=== PATIENT | female | born 1990 | race Caucasian/White ===

== ENCOUNTER 2022-04-04 10:24 | Outpatient (CLI) | payer BC, SELFPAY ==
[2022-04-04 14:48] LABS: Creatinine Urine 75.6 mg/dL
[2022-04-04 14:52] LABS: Microalbumin Creatinine Ratio 10 mg/g (0-30); Microalbumin Urine 1 mg/dL
[2022-04-04 21:36] LABS: Chloride* 105 mmol/L (96-114); Potassium* 4.3 mmol/L (3.6-5.1); Sodium* 140 mmol/L (135-149)
[2022-04-04 21:39] LABS: Alanine Aminotransferase* 20 U/L (4-35); Alkaline Phosphatase* 76 U/L (40-150); Aspartate Amino Transferase* 24 U/L (12-35); Bilirubin Total* 1.7 mg/dL (0.1-1.5); Blood Urea Nitrogen* 10 mg/dL (5-24); Carbon Dioxide* 22 mmol/L (20-32); Creatinine* 0.7 mg/dL (0.5-1.5); Estimated Glomerular Filt Rate 118 ml/min; Glucose* 87 mg/dL (60-115); Total Protein* 7.6 g/dL (6.0-8.3)
[2022-04-04 21:40] LABS: Calcium* 9.7 mg/dL (8.4-10.6)
[2022-04-04 22:09] LABS: Thyroid Stimulating Hormone* 0.963 uIU/mL (0.270-4.20)
[2022-04-04 22:12] LABS: Ferritin* 10.6 ng/mL (6.24-137.0)
[2022-04-04 23:51] LABS: Vitamin B12* 529 pg/mL (243-894)
== END 2022-04-04 10:25 | disposition home or self-care (01) ==
PROVIDERS: PCP Family Medicine; Visit Provider Family Medicine
DX: Z01.419 Encounter for gynecological examination (general) (routine) without abnormal findings (principal); N93.9 Abnormal uterine and vaginal bleeding, unspecified; R03.0 Elevated blood-pressure reading, without diagnosis of hypertension
CPT/HCPCS: 80053; 82043; 82570; 82607; 82728; 84443

== ENCOUNTER 2022-04-09 13:44 | Outpatient (CLI) | payer BC, SELFPAY ==
--- NOTE | 2022-04-09 14:00 | CRLHL7_ITS ---
For Patients: As a result of the Century Cures Act, medical imaging exams and procedure reports are released immediately into your electronic medical record. You may view this report before your referring provider. If you have questions, please contact your health care provider. INDICATION: ABNORMAL UTERINE BLEEDING COMPARISON: none TECHNIQUE: 2D qureshi scale and color Doppler images were acquired of the pelvis using a transabdominal and transvaginal approach. FINDINGS: Sonographic images demonstrate a normal size and smooth outer contour of the uterus. Uterus measures 9.4 cm in length by 4.3 cm in AP diameter by 5.7 cm in transverse dimension. The myometrium has a heterogeneous echotexture. Circumscribed heterogeneously hypoechoic submucosal fibroid or endometrial polyp within the uterine fundus measuring 1.5 x 1.2 x 1.6 cm. The endometrial lining appears heterogeneous and thickened and measures 18 mm in composite thickness. The right ovary measures 6.4 x 4.5 x 6.0 cm in size and the left ovary measures 3.6 x 1.9 x 2.3 cm. A complex right ovarian cyst is present measuring 6.0 x 4.0 x 5.8 cm. Within this cyst there are hypoechoic internal echoes along with thin reticular septations. The ovaries demonstrate normal arterial and venous blood flow on color Doppler analysis. There are no suspicious fluid collections within the cul-de-sac. IMPRESSION: Complex right ovarian cyst measuring 6.0 cm, likely hemorrhagic cyst. Follow-up in 4-6 weeks recommended. No torsion. Thickened and heterogeneous endometrium measuring 1.8 cm with possible endometrial polyp or submucosal fibroid measuring 1.6 cm. Dictated by Lex Eugene MD @ 04/09/2022 2:31:09 PM (Electronically Signed)
== END 2022-04-09 13:45 | disposition home or self-care (01) ==
PROVIDERS: PCP Family Medicine; Visit Provider Family Medicine
DX: N93.9 Abnormal uterine and vaginal bleeding, unspecified (principal); N83.201 Unspecified ovarian cyst, right side; R93.89 Abnormal findings on diagnostic imaging of other specified body structures
CPT/HCPCS: 76830; 76856; 93976

== ENCOUNTER 2022-05-23 09:46 | Outpatient (CLI) | payer BC, SELFPAY | END 2022-05-23 09:47 | disposition home or self-care (01) | LOC: US 09:48 | PROVIDERS: PCP Family Medicine; Visit Provider Obstetrics & Gynecology | DX: N83.201 Unspecified ovarian cyst, right side (principal); N84.0 Polyp of corpus uteri | CPT/HCPCS: 76830; 76856 ==

== ENCOUNTER 2022-06-04 09:39 | Outpatient (CLI) | payer BC, SELFPAY ==
[2022-06-04 22:45] LABS: Chloride* 106 mmol/L (96-114); Sodium* 140 mmol/L (135-149)
[2022-06-04 22:46] LABS: Potassium* 4.3 mmol/L (3.6-5.1)
[2022-06-04 22:48] LABS: Carbon Dioxide* 22 mmol/L (20-32); Creatinine* 0.7 mg/dL (0.5-1.5); Estimated Glomerular Filt Rate 117 ml/min
[2022-06-04 22:49] LABS: Blood Urea Nitrogen* 11 mg/dL (5-24); Calcium* 9.3 mg/dL (8.4-10.6)
[2022-06-04 23:38] LABS: Glucose* 107 mg/dL (60-115)
[2022-06-05 00:15] LABS: Creatinine Urine 74.4 mg/dL
[2022-06-05 00:19] LABS: Microalbumin Creatinine Ratio 10 mg/g (0-30); Microalbumin Urine 1 mg/dL
== END 2022-06-04 09:40 | disposition home or self-care (01) ==
PROVIDERS: PCP Family Medicine; Visit Provider Family Medicine
DX: Z01.818 Encounter for other preprocedural examination (principal); I10 Essential (primary) hypertension; E66.9 Obesity, unspecified
CPT/HCPCS: 80048; 82043; 82570

== ENCOUNTER 2022-06-07 11:18 | Day surgery (SDC) | payer BC, SELFPAY ==
[2022-06-07] MEDS: LACTATED RINGERS 1000 ML 1,000 ML 100 ML IV (11:30)
[2022-06-07 11:42] VITALS: BMI 39.1
[2022-06-07 11:52] VITALS: BP 131/88; PULSE 85; RESP 18; TEMP 36.2; O2SAT 100
[2022-06-07 11:56] LABS: Hemoglobin* 12.7 gm/dL (12.0-16.0)
[2022-06-07 11:56] LABS: Ur HCG Qualitative* Negative (Negative)
[2022-06-07] MEDS: ETHYL CHLORIDE 1 APPLICATION 1 APPLIC TOPICAL (12:23)
[2022-06-07] MEDS: SODIUM CHLORIDE 0.9 % (FLUSH) 10 ML SYRINGE IVF (12:23)
[2022-06-07] MEDS: BUPIVACAINE 0.5% 30 ML INJECTION (12:54)
[2022-06-07 13:30] VITALS: BP 118/82; PULSE 68; RESP 14; TEMP 36.2; O2SAT 97
--- NOTE | 2022-06-07 13:34 | W.ANESCHARGE ---
Anesthesia Charges Start Date/Time Anesthesia Start Date: 06/07/22 Anesthesia Start Time: 12:33 Stop Date/Time Anesthesia Stop Date: 06/07/22 Anesthesia Stop Time: 13:33 Summary Emergency: No
--- NOTE | 2022-06-07 13:40 | W.PM.GYNPROC ---
Procedure Note Date Seen: 06/07/22 Procedure Details: Preop diagnosis: Abnormal uterine bleeding, suspected endometrial polyps Postop diagnosis: Abnormal uterine bleeding, suspected endometrial polyp vs fibroid Name of procedure: Hysteroscopy, dilation and curettage, placement of Mirena IUD. Surgeon: Katelyn Goins Pile Driver Operator Helper: None Complications: None EBL: 10mL Drains: None Findings: Bimanual exam: Antevereted uterus of about 9cm, regular contour, no adnexal masses. Intrauterine cavity: Bilateral cornual openings seen, Posterior uterine wall pedunculated lesion, irregular in shape, looks calcified? polypoid vs fibroid. Patient was taken to the OR were MAC anesthesia was administered without difficulty. She was placed in the dorsal lithotomy position with Yoni type stirrups. An exam under anesthesia as described above. Patient was then prepared and draped in the normal sterile fashion. A bivalved speculum was inserted in the posterior aspect of the vagina. 0.5% Marcaine was injected at 2 and 11 o'clock a total of about 5mL utilized. A single-tooth tenaculum was used to grasp the anterior lip of the cervix. The uterus was carefully sounded to 8 cm. The cervical os was sequentially dilated to accommodate the 5 mm TrueClear hysteroscope using Hegar dilators. A 5 mm 30 degree TrueClear hysteroscope was introduced under direct visualization, and the uterus was distended with normal saline. Findings as above. Soft tissue incisor blade from TrueClear hysteroscope system was introduced under direct visualization and endometrial curettings performed, this was unsuccesful in complete removal of previously described lesion. Tried a large sharp curette but this was also unsuccesful to remove lesion. Decision was made to change to the larger incisor blade from TrueClear hysteroscopy device. Cervix was further dilated to 8mm. The 7-8mm TrueClear hysteroscope was inserted under direct visualization followed by the incisor blade, previously described lesion was entirely removed. Hysteroscope removed under direct visualization. Mirena IUD was placed without difficulty, strings were cut and left about 3 -4 cm long. Tenaculum was removed from the cervix and good hemostasis was noted at puncture sites. Patient tolerated the procedure well. Instrument and sponge counts were correct x2. The patient was awakened from MAC anesthesia and taken to the recovery room in a stable condition. The patient will go home after recovering from anesthesia and meeting all the criteria for discharge. She was given instruction regarding follow-up visit in 2 weeks at [facility] and instructions for pain medication. IVFs: 400mL Fluid deficit: 700mL
[2022-06-07 13:44] VITALS: BP 115/80; PULSE 65; RESP 14; TEMP 36.3; O2SAT 97
[2022-06-07 14:01] VITALS: BP 116/79; PULSE 65; RESP 16; O2SAT 97
[2022-06-07 14:15] VITALS: BP 125/78; PULSE 78; RESP 18; TEMP 36.3; O2SAT 99
[2022-06-07 14:30] VITALS: BP 123/97; PULSE 75; RESP 18; O2SAT 99
--- NOTE | 2022-06-07 14:54 | W.ANESCHARGE ---
Anesthesia Charges Start Date/Time Anesthesia Start Date: 06/07/22 Anesthesia Start Time: 12:33 Stop Date/Time Anesthesia Stop Date: 06/07/22 Anesthesia Stop Time: 13:33 Summary Emergency: No
== END 2022-06-07 14:50 | disposition home or self-care (01) ==
PROVIDERS: PCP Family Medicine; Visit Provider Obstetrics & Gynecology
PROC: 0UDB8ZZ Extraction of Endometrium, Via Natural or Artificial Opening Endoscopic (ICD-10-PCS; CPT 58558; principal; 2022-06-07 12:30)
DX: N93.8 Other specified abnormal uterine and vaginal bleeding (principal); Z30.430 Encounter for insertion of intrauterine contraceptive device; D25.0 Submucous leiomyoma of uterus
CPT/HCPCS: 58558; 58300; 36415; 81025; 85018; 88305; 952; J1100; J1885; J2250; J2405; J2704; J3010; J3490; J7120; J7298

== ENCOUNTER 2023-04-16 14:15 | Outpatient (CLI) | payer BC, SELFPAY ==
[2023-04-16 21:41] LABS: Chlamydia DNA Amplified* NOT DETECTED (No Detected); GC DNA Amplified* NOT DETECTED (No Detected)
== END 2023-04-16 14:16 | disposition home or self-care (01) ==
PROVIDERS: PCP Family Medicine; Visit Provider Registered Nurse
DX: Z34.91 Encounter for supervision of normal pregnancy, unspecified, first trimester (principal); Z3A.01 Less than 8 weeks gestation of pregnancy
CPT/HCPCS: 82565; 82570; 84156; 84450; 84460; 84520; 86592; 86703; 86704; 86706; 86762; 86787; 86803; 86850; 86900; 86901; 87086; 87340; 87491; 87591

== ENCOUNTER 2023-04-16 15:51 | Emergency (ER) | payer BC, SELFPAY ==
[2023-04-16 16:11] VITALS: BP 138/89; PULSE 77; RESP 16; TEMP 36.6; O2SAT 99; BMI 39.2
--- NOTE | 2023-04-16 16:24 | CRLHL7_ITS ---
For Patients: As a result of the Century Cures Act, medical imaging exams and procedure reports are released immediately into your electronic medical record. You may view this report before your referring provider. If you have questions, please contact your health care provider. INDICATION: Bilateral leg swelling. TECHNIQUE: Ultrasound venous duplex bilateral lower extremity. Compression venous exam was performed using qureshi-scale, color Doppler, and spectral Doppler analysis. Permanently recorded images are archived. COMPARISON: None. FINDINGS: Deep veins: Sonographic imaging demonstrates the bilateral common femoral, deep femoral, superficial femoral, popliteal, posterior tibial, and peroneal veins to be fully compressible with normal color Doppler blood flow. Superficial veins: Greater saphenous veins are fully compressible. No popliteal cyst. IMPRESSION: No deep venous thrombosis in the evaluated veins of the bilateral lower extremities. Dictated by Rodger Lawrence MD @ 04/16/2023 6:50:25 PM (Electronically Signed)
--- NOTE | 2023-04-16 17:18 | ED.GENADULT ---
HPI - General Adult General Chief complaint: Lower Extremity Swelling Stated complaint: possible blood clot, R leg Time Seen by Provider: 04/16/23 16:55 Source: patient Mode of arrival: ambulatory Limitations: no limitations History of Present Illness HPI narrative: 32-year-old female coming in today after being seen in the clinic for her 1st OB appointment with concerns about leg swelling. Patient is G 4 P 3 at 7 weeks gestation. so far has been uncomplicated. She has had superficial thrombophlebitis with previous pregnancies no history of DVT. She denies any systemic symptoms. Related Data Home Medications Medication Instructions Recorded Confirmed docosahexaenoic acid 200 mg mg PO 04/16/23 04/16/23 capsule ( DHA) Allergies Allergy/AdvReac Type Severity Reaction Status Date / Time No Known Drug Allergies Allergy Verified 04/16/23 13:55 Review of Systems Status of ROS: Reports: 10 or more systems reviewed and unremarkable except as noted in History and below PFSH PFS Medical History Macrosomia ?P08.0 - Exceptionally large baby (ICD-10) Anxiety ?F41.9 - Anxiety disorder, unspecified (ICD-10) Endometritis ?N71.9 - Inflammatory disease of uterus, unspecified (ICD-10) Superficial thrombophlebitis ?I80.9 - Phlebitis and thrombophlebitis of unspecified site (ICD-10) Ovarian cyst ?N83.209 - Unspecified ovarian cyst, unspecified side (ICD-10) Abnormal uterine bleeding (AUB) ?N93.9 - Abnormal uterine and vaginal bleeding, unspecified (ICD-10) History of gestational hypertension ?Z87.59 - Personal history of other complications of , childbirth and the puerperium (ICD-10) Vaginal delivery ?O80 - Encounter for full-term uncomplicated delivery (ICD-10) Severe pre-eclampsia affecting puerperium ?O14.15 - Severe pre-eclampsia, complicating the puerperium (ICD-10) Surgical History Status post hysteroscopic myomectomy ?Z98.890 - Other specified postprocedural states (ICD-10) Social History (Reviewed 04/16/23 @ 17:33 by KENZIE Mendoza 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 Do you want help finding or keeping work or a job: I do not need or want help Physical activity type: none Smoking Status: Never smoker Do you use any of these nicotine containing products: None How often do you have a drink containing alcohol: never How often do you have six or more drinks on one occasion: Never AUDIT-C Alcohol total score: 0 Non-prescribed substance use: denies use Caffeine: Yes (occasionally) Little interest or pleasure in doing things: not at all Feeling down, depressed, or hopeless: not at all Are you currently sexually active: Yes Are you using contraception or practicing any form of control: Yes service: No Exam Narrative: Exam Narrative: Obese, well-developed patient in no acute distress. Alert and oriented. Answers questions appropriately. Mood and affect are appropriate. Thoughts are goal oriented and rational. No tangential or magical thinking noted. Patient speaks in full sentences without needing to catch her breath. HEENT: Normocephalic atraumatic. Pupils are equally round reactive to light. Extraocular muscles are intact. Conjunctivae are moist without any icterus noted. Moist mucous membranes. Cardiovascular: Heart is regular rate and rhythm. Lungs: Clear to auscultation bilaterally. Extremities: Bilateral lower extremities are without edema. Normal DP and PT pulses. She has large varicose veins on the right. Skin: Well perfused without any obvious rashes. Const: Vital Signs, click to edit/add: Vital Signs - 24 hr 04/16/23 16:11 Temperature 97.9 F Pulse Rate [Right Pulse Oximeter] 77 Respiratory Rate 16 Blood Pressure [Ri ght Upper Arm] 138/89 Pulse Oximetry 99 Oxygen Delivery Me thod Room Air Course Course ED Course: Ultrasound of bilateral lower extremities was negative. Vital Signs Vital signs: Initial Vital Signs Temperature 97.9 F 04/16/23 16:11 Temperature Source Temporal Artery Scan 04/16/23 16:11 Pulse Rate 77 04/16/23 16:11 Pulse Rhythm Regular 04/16/23 16:11 Respiratory Rate 16 04/16/23 16:11 Blood Pressure 138/89 04/16/23 16:11 Blood Pressure Mean 105 04/16/23 16:11 Blood Pressure Position Sitting 04/16/23 16:11 Pulse Oximetry 99 04/16/23 16:11 Oxygen Delivery Method Room Air 04/16/23 16:11 Vital Signs Temperature 97.9 F 04/16/23 16:11 Pulse Rate 77 04/16/23 16:11 Respiratory Rate 16 04/16/23 16:11 Blood Pressure 138/89 04/16/23 16:11 Pulse Oximetry 99 04/16/23 16:11 Oxygen Delivery Method Room Air 04/16/23 16:11 Temperature 97.9 F 04/16/23 16:11 Pulse Rate 77 04/16/23 16:11 Respiratory Rate 16 04/16/23 16:11 Blood Pressure 138/89 04/16/23 16:11 Pulse Oximetry 99 04/16/23 16:11 Oxygen Delivery Method Room Air 04/16/23 16:11 Medical Decision Making MDM Narrative Medical decision making narrative: 32-year-old female with lower extremity swelling in the setting of . We discussed elevating her legs as much as possible, wearing compression stockings regularly. Patient had no other questions. Imaging Data Venous US: Attestation: I have reviewed the pertinent imaging results. Radiologist's impression: Ultrasound venous duplex bilateral lower extremity. Compression venous exam was performed using qureshi-scale, color Doppler, and spectral Doppler analysis. Permanently recorded images are archived. COMPARISON: None. FINDINGS: Deep veins: Sonographic imaging demonstrates the bilateral common femoral, deep femoral, superficial femoral, popliteal, posterior tibial, and peroneal veins to be fully compressible with normal color Doppler blood flow. Superficial veins: Greater saphenous veins are fully compressible. No popliteal cyst. IMPRESSION: No deep venous thrombosis in the evaluated veins of the bilateral lower extremities. Discharge Plan Discharge Clinical Impression: Swelling of lower extremity Patient Disposition: Home, Self-Care Condition: Stable Additional Instructions: Elevate your legs as much as possible. Wear compression stockings as often as possible. Follow-up with OBGYN as scheduled. Prescriptions: No Action DHA 200 mg capsule PO Follow Up/Referrals: Frannie Barriga DO [Primary Care Provider] - Stand Alone Forms: [facility] Info Instructions
== END 2023-04-16 17:35 | disposition home or self-care (01) ==
LOC: ED 17:25
PROVIDERS: Emergency Provider Family Medicine; PCP Family Medicine
DX: R60.9 Edema, unspecified (principal)
CPT/HCPCS: 76817; 82565; 82570; 84156; 84450; 84460; 84520; 86703; 86706; 86803; 86850; 86900; 86901; 87086; 87340; 87491; 87591; 93970; 99283; 99284

== ENCOUNTER 2023-05-09 16:52 | Emergency (ER) | payer BC, SELFPAY ==
[2023-05-09 17:01] VITALS: BP 149/74; PULSE 83; RESP 20; TEMP 36.6; O2SAT 99; BMI 39.2
--- NOTE | 2023-05-09 17:18 | ED.GENADULT ---
HPI - General Adult General Time Seen by Provider: 17:18 Date Seen: 05/09/23 Chief complaint: Vaginal Bleeding Stated complaint: 10 weeks , bleeding Time Seen by Provider: 05/09/23 16:54 History of Present Illness HPI narrative: This is a 32-year-old female who is G4, P3, currently 10 weeks . She presents to the ER today with vaginal bleeding concern for miscarriage. Her past gynecologic history includes 3 previous pregnancies. All live births in life children. Two of her pregnancies were complicated by preeclampsia. One of her pregnancies was complicated by a 1st trimester subchorionic hematoma. She also had a hysteroscopy last year that showed uterine polyps. She had placement of IUD the after that hysteroscopy but had a removed 3 months ago in January due to vaginal bleeding and problems. She had some light vaginal bleeding in late January which she thought was her last normal. . She had an others light. In the week and of February, on February 22 and . She is now 10 weeks . She has had her 1st checkup including pre a ultrasound which confirmed an intrauterine -single varela gestation. She has been doing with while during the 1st trimester. 3 days ago on Saturday she began to have some very light pink vaginal discharge which she noticed only when she wiped after going to the bathroom. No other vaginal bleeding. This afternoon the bleeding became a bit heavier. She is now having some bright red vaginal spotting. No cramping. No abdominal pain. No flank pain. No urinary symptoms. Normal bowel movements. No blood in her stool. No fever or chills. Because of the spotting she is worried about miscarriage. She has called her clinic and they were able to get her in for an appointment an ultrasound next . She does not feel that she can wait that long so she came immediately here to the ER. She wants to find out whether she has having a miscarriage. Related Data Home Medications Medication Instructions Recorded Confirmed docosahexaenoic acid 200 mg mg PO 04/16/23 04/16/23 capsule ( DHA) Allergies Allergy/AdvReac Type Severity Reaction Status Date / Time No Known Drug Allergies Allergy Verified 04/16/23 13:55 [facility] Medical History Macrosomia ?P08.0 - Exceptionally large baby (ICD-10) Anxiety ?F41.9 - Anxiety disorder, unspecified (ICD-10) Endometritis ?N71.9 - Inflammatory disease of uterus, unspecified (ICD-10) Superficial thrombophlebitis ?I80.9 - Phlebitis and thrombophlebitis of unspecified site (ICD-10) Ovarian cyst ?N83.209 - Unspecified ovarian cyst, unspecified side (ICD-10) Abnormal uterine bleeding (AUB) ?N93.9 - Abnormal uterine and vaginal bleeding, unspecified (ICD-10) History of gestational hypertension ?Z87.59 - Personal history of other complications of , childbirth and the puerperium (ICD-10) Vaginal delivery ?O80 - Encounter for full-term uncomplicated delivery (ICD-10) Severe pre-eclampsia affecting puerperium ?O14.15 - Severe pre-eclampsia, complicating the puerperium (ICD-10) Surgical History Status post hysteroscopic myomectomy ?Z98.890 - Other specified postprocedural states (ICD-10) Social History 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 Do you want help finding or keeping work or a job: I do not need or want help Physical activity type: none Smoking Status: Never smoker Do you use any of these nicotine containing products: None How often do you have a drink containing alcohol: never How often do you have six or more drinks on one occasion: Never AUDIT-C Alcohol total score: 0 Non-prescribed substance use: denies use Caffeine: Yes (occasionally) Little interest or pleasure in doing things: not at all Feeling down, depressed, or hopeless: not at all Are you currently sexually active: Yes Are you using contraception or practicing any form of control: Yes service: No Exam Narrative: Exam Narrative: Constitutional: Appears well-developed and well-nourished. Alert. Conversant. Non toxic. HENT: Head: Atraumatic. Nose: Nose normal. Mouth/Throat: Oral mucosa is clear and moist. no trismus. Pharynx normal. Tonsils symmetric. No tonsillar enlargement, erythema, or exudate. Eyes: Conjunctivae normal. EOM normal. Pupils equal, round, and reactive to light. No scleral icterus. Neck: Normal range of motion. Neck supple. No tracheal deviation present. Cardiovascular: Normal rate, regular rhythm. No gallop. No friction rub. No murmur heard. Pulmonary/Chest: Effort normal. No stridor. No respiratory distress. No wheezes. No rales. No rhonchi . No tenderness. Abdominal: Soft. Bowel sounds normal. No distension. No mass. No palpable uterine enlargement. No tenderness. No rebound. No guarding. No CVA tenderness. Musculoskeletal: RUE: Normal range of motion. No tenderness. No deformity LUE: Normal range of motion. No tenderness. No deformity RLE: Normal range of motion. No edema. No tenderness. No deformity LLE: Normal range of motion. No edema. No tenderness. No deformity Neurological: Alert and oriented to person, place, and time. Normal strength. CN II-VII intact. No sensory deficit. GCS eye subscore is 4. GCS verbal subscore is 5. GCS motor subscore is 6. Normal coordination Skin: Skin is warm and dry. No rash noted. No pallor. Normal capillary refill. Psychiatric: Normal mood. Normal affect. Const: Vital Signs, click to edit/add: Vital Signs - 24 hr 05/09/23 17:01 Temperature 97.8 F Pulse Rate [Pulse Oximeter] 83 Respiratory Rate 20 Blood Pressure [Le ft Upper Arm] 149/74 H Pulse Oximetry 99 Oxygen Delivery Me thod Room Air Course Course ED Course: Recheck-back from ultrasound. Preliminary report is concerning showing intrauterine demise. Reevaluation(s) Reevaluation #1: Recheck-discussed with Obstetrics. Reevaluation #2: Recheck-patient is still emotionally upset and tearful but is conversant. Hemodynamically stable. No pain. Light bleeding. She is comfortable with the plan to discharge home for now with expectant management. Precautions for return to the ER reviewed. Vital Signs Vital signs: Initial Vital Signs Temperature 97.8 F 05/09/23 17:01 Temperature Source Temporal Artery Scan 05/09/23 17:01 Pulse Rate 83 05/09/23 17:01 Pulse Rhythm Regular 05/09/23 17:01 Respiratory Rate 20 05/09/23 17:01 Blood Pressure 149/74 H 05/09/23 17:01 Blood Pressure Mean 99 05/09/23 17:01 Blood Pressure Position Supine 05/09/23 17:01 Pulse Oximetry 99 05/09/23 17:01 Oxygen Delivery Method Room Air 05/09/23 17:01 Vital Signs Temperature 97.8 F 05/09/23 17:01 Pulse Rate 83 05/09/23 17:01 Respiratory Rate 20 05/09/23 17:01 Blood Pressure 149/74 H 05/09/23 17:01 Pulse Oximetry 99 05/09/23 17:01 Oxygen Delivery Method Room Air 05/09/23 17:01 Temperature 97.8 F 05/09/23 17:01 Pulse Rate 83 05/09/23 17:01 Respiratory Rate 20 05/09/23 17:01 Blood Pressure 149/74 H 05/09/23 17:01 Pulse Oximetry 99 05/09/23 17:01 Oxygen Delivery Method Room Air 05/09/23 17:01 Medical Decision Making MDM Narrative Medical decision making narrative: This female patient presents for evaluation of 2-3 days of very light vaginal spotting now with light red vaginal bleeding. I considered a broad differential including ectopic , ovarian cyst, UTI, pyelonephritis, subchorionic hemorrhage, uterine bleeding, active miscarriage, constipation, etc. Non gynecologic causes considered included , appendicitis, cholecystitis, volvulus, intraabdominal abscess, among others. In this patient, there are no signs of serious etiologies of abdominal pain. The workup here suggests incomplete miscarriage. Quantitative hCG is 10,675, lower than what would be expected for dates. Pelvic ultrasound confirms an intrauterine gestation, only at 9 weeks size (< we would predict) with absent heart tones. This is concerning for incomplete . Discussed with the patient. She is emotionally in shock. However her bleeding remains light, she is not having any cramping, and she is hemodynamically stable. Hemoglobin is normal. Rh is positive. Discussed with the on-call associate professor of geography, , who agrees with our plan for an initial attempt at conservative management. She would have the patient follow-up in clinic within 1-3 days for re-evaluation and to discuss options. At this point, patient is hemodynamically stable, hemoglobin is reassuring, and bleeding is not predicted to become life threatening. Plan is home, close follow-up with OB, miscarriage precautions, and return to ED for worsening pain, heavy vaginal bleeding (more than 1 pad soaked every hour). Questions were answered to the best my ability. Lab Data Labs: Lab Results 05/09/23 Range/Units 17:44 WBC 6.27 (4.50-11.00) K/uL RBC 4.53 (4.00-5.20) m/uL Hgb 12.4 (12.0-16.0) gm/dL Hct 36.9 (33.0-51.0) % MCV 82 (80-100) fL MCH 27 (26-34) pg MCHC 34 (32-36) gm/dL RDW Coeff of Kulwant 14.6 (11.5-15.5) % Plt Count 211 (140-440) K/uL Neut % (Auto) 68.5 (42.0-72.0) % Lymph % (Auto) 25.5 (20-44) % [place]pton % (Auto) 4.8 (0.0-11.0) % Eos % (Auto) 0.8 (0.0-7.0) % Baso % (Auto) 0.2 (0.0-3.0) % Neut # (Auto) 4.30 (1.7-7.0) K/uL Lymph # (Auto) 1.60 (0.90-2.90) K/uL Upton # (Auto) 0.30 (0.00-0.90) K/UL Eos # (Auto) 0.05 (0.00-0.50) K/uL Baso # (Auto) 0.01 (0.00-0.30) K/uL Abs Immat Gran (auto) 0.01 (0.00-0.30) K/uL Imm/Tot Granulo (auto) 0.2 % HCG, Quant 54218.00 mIU/mL Imaging Data Pelvic US: Attestation: I have reviewed the pertinent imaging results. Radiologist's impression: IMPRESSION: Failed 1st trimester . No cardiac activity. 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 Tell them that you were in the ER tonight and diagnosed with a miscarriage. We discussed with the on-call OB doctor and she would like you to be rechecked within 1-3 days. As we discussed if you have worsening symptoms or any concerns, come back to the ER right away-especially if you have worsening heavy bleeding, lightheadedness, fever or chills, severe abdominal pain. Prescriptions: No Action DHA 200 mg capsule PO Follow Up/Referrals: Frannie Barriga DO [Staff Physician] - Stand Alone Forms: [employer] Info Instructions
--- NOTE | 2023-05-09 17:21 | CRLHL7_ITS ---
For Patients: As a result of the Cures Act, medical imaging exams and procedure reports are released immediately into your electronic medical record. You may view this report before your referring provider. If you have questions, please contact your health care provider. INDICATION: Vaginal bleeding, 10 weeks . TECHNIQUE: Ultrasound OB pelvis transabdominal and transvaginal. Real-time qureshi-scale imaging of the pelvis was performed. COMPARISON: 04/17/2023. FINDINGS: Current estimated gestational age 10 weeks 5 days. Intrauterine gestational sac: Present. Embryo present: Yes. Embryo cardiac activity: None [place] rump Length: 2.34 cm. Sonographic gestational age: 9 weeks 0 days Perigestational hemorrhage: None. Ovaries and adnexae: The right ovary measures 4.6 x 2.2 x 2.3 cm. Hemorrhagic cyst, 2.5 x 1.9 x 2.0 cm. The left ovary measures 4.1 x 2.0 x 2.5 cm. IMPRESSION: Failed 1st trimester . No cardiac activity. Dictated by Karen Lofton MD @ 05/09/2023 6:32:09 PM (Electronically Signed)
[2023-05-09 17:51] LABS: Basophils Absolute Auto 0.01 K/uL (0.00-0.30); Basophils Percent Auto 0.2 % (0.0-3.0); Eosinophils Absolute Auto 0.05 K/uL (0.00-0.50); Eosinophils Percent Auto 0.8 % (0.0-7.0); Hematocrit 36.9 % (33.0-51.0); Hemoglobin* 12.4 gm/dL (12.0-16.0); Immature Granulocytes Abs Auto 0.01 K/uL (0.00-0.30); Immature Granulocytes Pct Auto 0.2 %; Lymphocytes Percent Auto 25.5 % (20-44); Mean Corpuscular HGB Conc 34 gm/dL (32-36); Mean Corpuscular Hemoglobin 27 pg (26-34); Mean Corpuscular Volume 82 fL (80-100); Monocytes Percent Auto 4.8 % (0.0-11.0); Neutrophils Percent Auto 68.5 % (42.0-72.0); Platelet Count* 211 K/uL (140-440); RDW Coefficient of Variation % 14.6 % (11.5-15.5); Red Blood Count 4.53 m/uL (4.00-5.20); White Blood Count* 6.27 K/uL (4.50-11.00)
[2023-05-09 17:54] LABS: Slide Review Reflex No
== END 2023-05-09 19:10 | disposition home or self-care (01) ==
PROVIDERS: Emergency Provider Emergency Medicine; PCP Internal Medicine Nephrology
DX: O03.4 Incomplete spontaneous abortion without complication (principal)
CPT/HCPCS: 36415; 76817; 84702; 85025; 99283; 99284

== ENCOUNTER 2023-10-18 12:45 | Outpatient (CLI) | payer BC, SELFPAY ==
--- NOTE | 2023-10-18 13:00 | US_ITS ---
Patient: ANTHONY DESOUZA Facility:?[facility] RIS Patient ID:?[id number] Site Patient ID:?[id number]. Site :?1989 Study:?US-OB Pelvis OB TA < 14 WEEKS-10/18/2023 1:16:46 PM Ordering Physician:?SHO PADILLA CNP Final Report: INDICATION: First trimester scan, establish dates. TECHNIQUE: Real-time qureshi-scale imaging of the pelvis was performed. FINDINGS: Sonographic imaging demonstrates a single living intrauterine gestation. The embryo demonstrates a regular cardiac rate measuring 169 beats per minute. The embryo`s crown-rump length measurement of 5 cm corresponds to a gestational age of 11 weeks 5 days with a sonographic due date of 05/03/2024 . There is a normal-appearing yolk sac. Small subchorionic hemorrhage measuring 2.7 x 3.2 x 0.7 centimeters IMPRESSION: Early intrauterine at 11 weeks 5 days with RUBEN of 05/03/2024. Small subchorionic hemorrhage. Dictated by Georgina Marley MD @ 10/19/2023 10:45:45 AM Signed by:?Georgina Marley MD @10/19/2023 10:45:45 AM (Electronic Signature)
== END 2023-10-18 12:46 | disposition home or self-care (01) ==
LOC: US 12:46
PROVIDERS: Visit Provider Registered Nurse
DX: Z34.91 Encounter for supervision of normal pregnancy, unspecified, first trimester (principal); O20.9 Hemorrhage in early pregnancy, unspecified; Z3A.11 11 weeks gestation of pregnancy
CPT/HCPCS: 76801; 82565; 82570; 84156; 84450; 84460; 84520; 84550; 86592; 86703; 86704; 86706; 86762; 86787; 86803; 86850; 86900; 86901; 87086; 87340; 87491; 87591

== ENCOUNTER 2023-11-08 06:15 | Outpatient (CLI) | payer BC, SELFPAY ==
--- OUTSIDE RECORDS SUMMARY | 2023-11-11 06:50 | XMS_ITS | Clinical Summary ---
Author Name Unknown Organization [facility] Address [place], [place] [address] Care Team Providers Care Heel Emery Buffer Name Role Phone Katelyn Goins MD Primary Care Prov ider Allergies No known active allergies Medications Medication Sig Dispensed Refills Start Date End Date Status MICROGESTIN FE 08/10 1-20 mg-mcg tablet TAKE ONE TABLET BY MOUTH EVERY DAY 1 Package 0 09/02/2011 Active tobramycin (TOBREX) 0.3 % ophthalmic solutionIndications:C onjunctivitis Place 1-2 Drops into both eyes every 4 hours. 1 Bottle 0 03/14/2014 Active busPIRone 7.5 mg tablet Take 7.5 mg by mouth 2 times daily. 07/06/2020 Active sertraline (ZOLOFT) 100 mg tablet Take 100 mg by mouth once daily. 07/06/2020 Active Active Problems No known active problems Immunizations Name Administration Dates Next Due Hepatitis B (Peds) 09/10/2000,04/09/2000, 000 Meningococcal Vaccine (Menactra) 02/25/2008 Td (Age >=7 Years) 08/08/2004 Family History Relation Name Status Comments Father Alive Mother Alive Social History Tobacco Use Types Packs/Day Years Used Date Smoking Tobacco: Never Smokeless Tobacco: Never Alcohol Use Standard Drinks/Week Comments No 0 (1 standard drink = 0.6 oz pur e alcohol) Sex and Gender Information Value Date Recorded Sex Assigned at Not on file Gender Identity Not on file Sexual Orientation Not on file Obstetrics History Para Term AB IAB SAB Ectopic Multiple Livin g Live Births 0 0 0 0 0 0 0 0 0 0 Last Filed Vital Signs Vital Sign Reading Time Taken Comments Blood Pressure 145/90 07/15/2020 2:30 PM [facility] Pulse 77 07/15/2020 2:30 PM YACHT HAND Temperature 36.4 ??C (97.6 ??F) 07/15/2020 2:30 PM CS T Respiratory Rate 16 07/15/2020 2:30 PM YACHT HAND Oxygen Saturation 100% 07/15/2020 2:30 PM [facility]AC[facility] HAND Inhaled Oxygen Concentration - - Weight 99.8 kg (220 lb) 07/15/2020 2:30 PM YACHT HAND Height 170.2 cm (5' 7) 07/15/2020 2:30 PM YACHT HAND Body Mass Index 34.46 07/15/2020 2:30 PM [facility] Plan of Treatment Health Maintenance Due Date Last Done Comments Tdap 2000 Depression screening for age 12+ 2001 HIV for age 15-65 2004 BMI (ht and wt on same day) for age 18+ 2007 Hepatitis C screening for ag e 18-79 2007 Tetanus booster 08/08/2014 08/08/2004 Pap test for age 21-65 08/28/2022 0, 08/28/2019, 08/30/2010 COVID-19 vaccine series (2022-24 season) 2023 Influenza for age 9-49 03/22/2024 Pneumococcal series for age 6-64 Aged Out No longer eligible b ased on patient's age to complete this topic Procedures Procedure Name Priority Date/Time Associated Diagnosis Comments SMASH PIECER THIN PREP PAP SCREEN IMAGED Routine 08/28/2019 11:08 AM [facility] from Last 3 Months or Most Recently Relevant to Health Maintenance Results * SMASH PIECER THIN PREP PAP SCREEN IMAGED (08/28/2019 11:08 AM [facility]) Case Report Gynecologic Cytology Report ? Case: [id number] ? Authorizing Provider: ??Katelyn Goins ??Collected: ? 08/28/2019 1108 ? M, MD ? Ordering Location: ? [facility] ?Received: ?08/28/2019 1623 ? First Screen: ?Rosemary Ferguson ? Specimen: ?SMASH PIECER ThinPrep Vial Screening, Cervical/Vaginal ? 09/08/2019 10:14 AM [facility]-C ENTRAL LABORATORY INTERPRETATION/ RESULT NEGATIVE FOR INTRAEPITHELIAL LESION OR MALIGNANCY (NIL) (none) 09/08/2019 10:14 AM [facility]-C ENTRAL LABORATORY IMEN ADEQUACY Satisfactory for evaluation Endocervical component present 09/08/2019 10:14 AM [facility] ENTRAL LABORATORY HPV REQUEST HPV and PAP 09/08/2019 10:14 AM [facility] EN[facility]AL LABORAT[facility] Last Pap Date 09/27/2014 09/08/2019 10:14 AM [facility] ENTRAL LABORATORY Last Pap Result NIL 0 10:14 AM [facility]-C ENTRAL LABORATORY Menstrual Status 09/08/2019 10:14 AM [facility]-C ENTRAL LABORATORY Additional Information 09/08/2019 10:14 AM [facility] Comment: Interpreted at [facility] - [address], [place] [address] Automated Review Successful 09/08/2019 10:14 AM [facility] Comment:Specimen processed s uccessfully by automated bank president device, [employer] System, [employer] ANCILLARY TESTING SMASH PIECER HPV Ordered, Please see separate report 09/08/2019 10:14 AM [facility] Note The pap test is a screening technique, not a diagnostic procedure. It is used primarily to screen for squamous cancers and precursor lesions. Published studies have shown that it is subject to both false negative and false positive results. The pap test should not be used as the sole means to diagnose or exclude pre-malignant and malignant lesions. 09/08/2019 10:14 AM [facility] Other (Cervical/Vagina l) 08/28/2019 11:08 AM [facility] 08/28/2019 4:23 PM [facility] Katelyn Goins MD PATHOLOGY/ CYTOLOGY [facility] [address] [place] [address], from Last 3 Months or Most Recently Relevant to Health Maintenance Care Teams Heel Emery Buffer Relationship Specialty Start Date End Date Katelyn Goins MD [address] [place] [address] PCP - General Obstetrics and Gynecology 07/15/20
--- OUTSIDE RECORDS SUMMARY | 2023-11-11 06:50 | XMS_ITS | Clinical Summary ---
Author Name Unknown Organization [place] Address [address] [facility] [place] [address] Care Team Providers Care Cassandra Architect Name Role Phone [facility], [facility] Primary Care Provider [phone] [phone] Allergies No known active allergies Medications Medication Sig Dispensed Refills Start Date End Date Status Vit-Fe Fumarate-FA ( MULTIVITAMIN PLUS IRON) 27-0.8 MG TABS Take 1 tablet by mouth daily 100 tablet 3 09/08/2015 Active Vitamin D, Ergocalciferol, 2000 units CAPS Take 4,000 Units by mouth Active norethindrone (MICRONOR) 0.35 MG per tabletIndications:Rout ine follow-up Take 1 tablet (0.35 mg) by mouth daily 112 tablet 3 01/16/2018 Active Active Problems Problem Noted Date Diagnosed Date Acute endometritis 11/27/2017 Encounter for triage in patient 018 Indication for care in labor or delivery 018 CARDIOVASCULAR SCREENING; LDL GOAL LESS THAN 160 09/27/2014 Resolved Problems Problem Noted Date Diagnosed Date Resolved Date History of gestational hypertension 06/28/2017 12/03/2017 , supervision, high-risk 06/28/2017 12/03/2017 Indication for care in labor and delivery, delivered 05/06/2016 06/28/2017 PIH ( induced hypertension) 05/04/2016 06/28/2017 Indication for care in labor and delivery, antepartum 05/04/2016 06/28/2017 Folliculitis 03/16/2014 06/28/2017 Stye 03/16/2014 06/28/2017 Immunizations Name Administration Dates Next Due Influenza (IIV3) PF 04/04/2016 Influenza Vaccine >6 months,quad, PF 05/03/2017 TDAP Vaccine (Adacel) 09/06/2017,03/20/2016 Family History Medical History Relation Comments Cancer Maternal Grandmother cervical Thyroid Disease Maternal Grandmother Breast Cancer No family hx of Ovarian Cancer No family hx of Relation Status Comments Father Alive Maternal Grandmother Mother Alive Son Alive Social History Tobacco Use Types Packs/Day Years Used Date Smoking Tobacco: Never Smokeless Tobacco: Never Alcohol Use Standard Drinks/Week Comments No 0 (1 standard drink = 0.6 oz pur e alcohol) PHQ-2 Answer Date Recorded PHQ-2 Score 0 07/30/2018 Adolescent Education Answer Date Record ed Getting School Help Needed Not on file 04/12 Sex and Gender Information Value Date Recorded Sex Assigned at Not on file Gender Identity Not on file Sexual Orientation Not on file Last Filed Vital Signs Vital Sign Reading Time Taken Comments Blood Pressure 128/80 02/04/2018 9:27 AM CDT Pulse 126 02/04/2018 9:27 AM CDT Temperature 37.7 ??C (99.9 ??F) 02/04/2018 9:27 AM CD T Respiratory Rate 18 02/04/2018 9:27 AM CDT Oxygen Saturation 97% 02/04/2018 9:27 AM CDT Inhaled Oxygen Concentration - - Weight 95.5 kg (210 lb 9.6 oz) 02/04/2018 9:27 A M CDT Height 170.2 cm (5' 7) 02/04/2018 9:27 AM CDT Body Mass Index 32.98 02/04/2018 9:27 AM CDT Plan of Treatment Not on file Procedures Procedure Name Priority Date/Time Associated Diagnosis Comments PAP IMAGED THIN LAYER SCREEN Routine 05/03/2017 2:46 PM CDT care, subsequent , unspecified trimester HIV ANTIGEN ANTIBODY COMBO Routine 05/03/2017 10:13 AM CDT care, subsequent , unspecified trimester from Last 3 Months or Most Recently Relevant to Health Maintenance Results * Pap imaged thin layer screen reflex to HPV if ASCUS - recommend age 25 - 29 (05/03/2017 2:46 PM CDT) PAP NIL COPATH Copath Report Patient Name: AMY LOVETT MR#: [id number] Specimen #: [id number] Collected: 05/03/2017 Received: 05/06/2017 Reported: 05/07/2017 14:26 Ordering Phy(s): RAMBO DAN For improved result formatting, select 'View Enhanced Report Format' under Linked Documents section. SPECIMEN/STAIN PROCESS: Pap imaged thin layer prep screening (Surepath, FocalPoint with guided screening) ? Pap-Cyto x 1, Pap with reflex to HPV if ASCUS x 1 SOURCE: Cervical, endocervical Pap imaged thin layer prep screening (Surepath, FocalPoint with guided screening) SPECIMEN ADEQUACY: Satisfactory for evaluation. -Transformation zone component absent. CYTOLOGIC INTERPRETATION: Negative for intraepithelial lesion or malignancy Electronically signed out by: RAKAN Angel (ASCP) Processed and screened at [facility], [facility] CLINICAL HISTORY: LMP: 02/16/2017 Previous normal pap Date of Last Pap: 09/27/2014, Papanicolaou Test Limitations: ??Cervical cytology is a screening test with limited sensitivity; regular screening is critical for cancer prevention; Pap tests are primarily effective for the diagnosis/preventi on of squamous cell carcinoma, not adenocarcinomas or other cancers. TESTING LAB LOCATION: [address] ??[phone] COLLECTION SITE: Client: ??[facility] Location: SVFP (R) COPATH Cytologic material (specimen) 05/03/2017 2:46 PM CDT 05/06/2017 10:55 AM CDT Rambo Dan MD LAB - [facility] L SPECIMEN COPATH * HIV Antigen Antibody Combo (05/03/2017 10:13 AM CDT) HIV Antigen Antibody Combo Nonreactive NR^Nonrea ctive 05/03/2017 7:14 PM CDT [facility] Comment:HIV-1 p24 Ag & HIV-1 /HIV-2 Ab Not Detected Blood specimen (specimen) 05/03/2017 10:13 AM CDT 05/03/2017 10:14 AM CDT Rambo Dan MD LAB - BLOOD ORDERABL ES [facility] [address] [place] [address] from Last 3 Months or Most Recently Relevant to Health Maintenance Care Teams Cassandra Architect Relationship Specialty Start Date End Date [facility] [address] [id number] PCP - General 12/25/18
--- OUTSIDE RECORDS SUMMARY | 2023-11-11 06:50 | XMS_ITS | Referral Summary ---
Author Name Unknown Organization [place] Address [address] [facility] [place] [address] Care Team Providers Care Carbon Lamp Cleaner Name Role Phone [facility], [facility] Primary Care Provider [phone] [phone] Allergies No known active allergies Medications Medication [...] months,quad, PF 05/03/2017 TDAP Vaccine (Adacel) 09/06/2017,03/20/2016 Social History Tobacco Use Types Packs/Day Years [...] - 29 (05/03/2017 2:46 PM CDT) PAP GRICEL [place] Report Patient Name: AMY LOVETT MR#: [id number] Specimen #: [id number] Collected: 05/03/2017 Received: 05/06/2017 Reported: 05/07/2017 14:26 [...] RAKAN Angel (ASCP) Processed and screened at [facility], [facility] CLINICAL HISTORY: LMP: 02/16/2017 Previous normal pap Date of Last Pap: 09/27/2014, Papanicolaou Test Limitations: ??Cervical cytology is a screening test with limited sensitivity; regular screening is critical for cancer prevention; Pap tests are primarily effective for the diagnosis/preventi on of squamous cell carcinoma, not adenocarcinomas or other cancers. TESTING LAB LOCATION: [address] ??[phone] COLLECTION SITE: Client: ??[facility] Location: SVFP (R) COPATH Cytologic material (specimen) 05/03/2017 2:46 PM CDT 05/06/2017 10:55 AM CDT Rambo Dan MD LAB - [facility] L SPECIMEN COPATH * HIV Antigen Antibody Combo (05/03/2017 10:13 AM CDT) HIV Antigen Antibody Combo Nonreactive NR^Nonrea ctive 05/03/2017 7:14 PM CDT [facility] Comment:HIV-1 p24 Ag & HIV-1 /HIV-2 Ab Not Detected Blood specimen (specimen) 05/03/2017 10:13 AM CDT 05/03/2017 10:14 AM CDT Rambo Dan MD LAB - BLOOD ORDERABL ES [facility] [address] [place] [address] from Last 3 Months or Most Recently Relevant to Health Maintenance Care Teams Carbon Lamp Cleaner Relationship Specialty Start Date End Date [facility] [address] [address] PCP - General 12/25/18
== END 2023-11-08 06:16 | disposition home or self-care (01) ==
LOC: NFLDREF 11-11 06:49
PROVIDERS: Visit Provider Dietitian, Registered
DX: I10 Essential (primary) hypertension (principal)
CPT/HCPCS: 82570; 84156

== ENCOUNTER 2023-12-13 13:41 | Outpatient (CLI) | payer BC, SELFPAY ==
--- OUTSIDE RECORDS SUMMARY | 2023-12-13 13:43 | XMS_ITS | Encounter Summary ---
Author Organization [place] Address [address] [facility] [place] [address] Care Team Providers Care Fuel System Maintenance Supervisor Name Role Phone [facility] Primary Care Provider +1 [phone] Encounter Details Date Type Department Care Team (Late st Contact Info) Description 11/15/2023 Medical Correspondence [facility] [address] [place] [address] Scan, Non-Provider Social History Tobacco Use Types Packs/Day Years [...] on file Sexual Orientation Not on file documented as of this encounter Plan of Treatment Upcoming Encounters Date Type Department Care Team (Late st Contact Info) Description 12/17/2023 2:15 PM CDT Appointment [facility] [address] [facility] [address] [place] [address] Radha Tubbs [facility] [address] [place] [address] Miguelito Pérez MD [address] [place] [address] 12/17/2023 2:45 PM CDT Office Visit [facility] [address] [place] [phone] Radha Tubbs [facility] [address] [place] [address] Miguelito Pérez MD [address] [place] [address] documented as of this encounter Visit Diagnoses Not on filedocumented in this encounter Additional Health Concerns Assessment Noted Time PHQ-9 Depression Total Score: 1 01/18/20 18 7:10 AM CDT documented as of this encounter Care Teams Fuel System Maintenance Supervisor Relationship Specialty Start Date End Date [facility] [address] [place] [address] PCP - General 12/25/18 documented as of this encounter
--- OUTSIDE RECORDS SUMMARY | 2023-12-13 13:43 | XMS_ITS | Referral Summary ---
Author Organization [place] Address [address] [place] [address] Care Team Providers Care Export Coordinator Name Role Phone [facility] [place] [facility] Primary Care Provider [phone] [phone] Encounters Date Type Department Care Team Description 12/09/2023 PRE VISIT [facility] [address] [facility] [address] [place] [address] Lesa Crowell RN Ultrasound (L2-HTN, obesity) 11/15/2023 [facility] [address] [place] [address] Scan, Non-Provider 11/15/2023 Transcribe Orders [facility] [address] [facility] [address] [place] [address] Radha Tubbs related condition, antepartum (Primary Dx) from Last 3 Months Allergies No known active allergies Medications Medication [...] SCREENING; LDL GOAL LESS THAN 160 09/27/2014 Estimated Date of Delivery Comme nts Yes 05/07/2024 Based on last me nstrual period of 08/01/2023 Resolved Problems Problem Noted Date Diagnosed Date [...] Getting School Help Needed Not on file 12/08 Estimated Date of Delivery Comme nts Yes 05/07/2024 Based on last me nstrual period of 08/01/2023 Sex and Gender Information Value Date Recorded [...] 02/04/2018 9:27 AM CDT Plan of Treatment Upcoming Encounters Date Type Department Care Team (Late st Contact Info) Description 12/17/2023 2:15 PM CDT Appointment [facility] [address] [facility] [address] [place] [phone] [address] [address] Miguelito Pérez MD [address] [place] [address] 12/17/2023 2:45 PM CDT Office Visit [facility] [address] [facility] [address] [place] [address] Shilo SosaRadha ortega [facility] [address] [place] [address] Miguelito Pérez MD [address] [place] [id number] Procedures Procedure Name Priority Date/Time Associated Diagnosis Comments GROUP B STREP PCR Routine 10/25/2017 10: 50 AM CDT Supervision of high risk in third trimester GLUCOSE TOLERANCE GEST SCREEN 1 HOUR Routine 08/23/2017 11:46 AM YOUTH PROGRAM DIRECTOR History of gestational hypertension PAP IMAGED THIN LAYER SCREEN Routine 05/03/2017 2:46 PM CDT care, subsequent , unspecified trimester HIV ANTIGEN ANTIBODY COMBO Routine 05/03/2017 10:13 AM CDT care, subsequent , unspecified trimester from Last 3 Months or Most Recently Relevant to Health Maintenance Results * Group B strep PCR (10/25/2017 10:50 AM CDT) Group B Strep PCR Spec David Vaginal Rectal 10/25/2017 12:06 PM CDT [facility] Group B Strep PCR Negative NEG^Negat solo 10/26/2017 2:58 PM CDT [facility] Comment: No GBS DNA detected, presumed negative for GBS or number of bacteria may be below the limit of detection of the assay. Assay performed on incubated broth culture of specimen using [employer] real-time PCR. Vaginal Rectal 10/25/2017 10 :50 AM CDT 10/25/2017 12:00 PM CDT Rhona Crum MD LAB - MICRO GENERAL ORDERABLES Performing Organization Address City/[facility]/ZIP Co de Phone Number [facility] [address] [place] [address] [facility] [address] [place] [address] * Glucose tolerance, gest screen, 1 hour (08/23/2017 11:46 AM YOUTH PROGRAM DIRECTOR) Glu Gest Screen 1hr 50g 102 60 - 129 mg/dL 08/25/2017 10:30 AM YOUTH PROGRAM DIRECTOR [facility] Blood specimen (specimen) 08/23/2017 11:46 AM YOUTH PROGRAM DIRECTOR 08/23/2017 11:47 AM YOUTH PROGRAM DIRECTOR Rhona Crum MD LAB - BLOOD ORDERABL ES [facility] [address] [place] [address] * Pap imaged thin layer screen reflex to HPV if ASCUS - recommend age 25 - 29 (05/03/2017 2:46 PM CDT) PAP NIL COPATH [place] Report Patient Name: ANTHONY LOVETT MR#: [id number] Specimen #: [id number] Collected: 05/03/2017 Received: 05/06/2017 Reported: 05/07/2017 14:26 Ordering Phy(s): ARACELY DAN For improved result formatting, select 'View [...] RAKAN Angel (ASCP) Processed and screened at [facility] CLINICAL HISTORY: LMP: 02/16/2017 Previous normal pap Date of Last Pap: 09/27/2014, Papanicolaou Test Limitations: ??Cervical cytology is a screening test with limited sensitivity; regular screening is critical for cancer prevention; Pap tests are primarily effective for the diagnosis/preventi on of squamous cell carcinoma, not adenocarcinomas or other cancers. TESTING LAB LOCATION: [address] ??[phone] COLLECTION SITE: Client: ??[facility] Location: SVFP (R) COPATH Cytologic material (specimen) 05/03/2017 2:46 PM CDT 05/06/2017 10:55 AM CDT Aracely Dan MD LAB - [facility] L SPECIMEN COPATH * HIV Antigen Antibody Combo (05/03/2017 10:13 AM CDT) HIV Antigen Antibody Combo Nonreactive NR^Nonrea ctive 05/03/2017 7:14 PM CDT [facility] Comment:HIV-1 p24 Ag & HIV-1 /HIV-2 Ab Not Detected Blood specimen (specimen) 05/03/2017 10:13 AM CDT 05/03/2017 10:14 AM CDT Aracely Dan MD LAB - BLOOD ORDERABL ES [facility] [address] [place] [address] from Last 3 Months or Most Recently Relevant to Health Maintenance Care Teams Export Coordinator Relationship Specialty Start Date End Date [facility] [address] [address] PCP - General 12/25/18
--- OUTSIDE RECORDS SUMMARY | 2023-12-13 13:43 | XMS_ITS | Clinical Summary ---
Author Organization [facility] Address [place], [place] [address] Care Team Providers Care Furnace Tapper Name Role Phone Katelyn Goins MD Primary [...] Comments Blood Pressure 145/90 07/15/2020 2:30 PM TIMBER MANAGEMENT ASSISTANT Pulse 77 07/15/2020 2:30 PM TIMBER MANAGEMENT ASSISTANT Temperature 36.4 ??C (97.6 ??F) 07/15/2020 2:30 PM CS T Respiratory Rate 16 07/15/2020 2:30 PM TIMBER MANAGEMENT ASSISTANT Oxygen Saturation 100% 07/15/2020 2:30 PM TIMBER MANAGEMENT ASSISTANT Inhaled Oxygen Concentration - - Weight 99.8 kg (220 lb) 07/15/2020 2:30 PM TIMBER MANAGEMENT ASSISTANT Height 170.2 cm (5' 7) 07/15/2020 2:30 PM TIMBER MANAGEMENT ASSISTANT Body Mass Index 34.46 07/15/2020 2:30 PM TIMBER MANAGEMENT ASSISTANT Plan of Treatment Health Maintenance Due Date [...] Procedure Name Priority Date/Time Associated Diagnosis Comments MAIL LIST PROCESSOR THIN PREP PAP SCREEN IMAGED Routine 08/28/2019 11:08 AM TIMBER MANAGEMENT ASSISTANT from Last 3 Months or Most Recently Relevant to Health Maintenance Results * MAIL LIST PROCESSOR THIN PREP PAP SCREEN IMAGED (08/28/2019 11:08 AM TIMBER MANAGEMENT ASSISTANT) Case Report Gynecologic Cytology Report ? Case: [id number] ? Authorizing Provider: ??Katelyn Goins ??Collected: ? 08/28/2019 1108 ? M, MD ? Ordering Location: ? [facility] ?Received: ?08/28/2019 1623 ? First Screen: ?Rosemary Ferguson ? Specimen: ?MAIL LIST PROCESSOR ThinPrep Vial Screening, Cervical/Vaginal ? 09/08/2019 10:14 AM [facility] INTERPRETATION/ RESULT NEGATIVE FOR INTRAEPITHELIAL LESION OR MALIGNANCY (NIL) (none) 09/08/2019 10:14 AM [facility] IMEN ADEQUACY Satisfactory for evaluation Endocervical component present 09/08/2019 10:14 AM [facility] HPV REQUEST HPV and PAP 09/08/2019 10:14 AM TIMBER MANAGEMENT ASSISTANT [facility] Last Pap Date 09/27/2014 09/08/2019 10:14 AM [facility] Last Pap Result NIL 0 10:14 AM [facility] Menstrual Status 09/08/2019 10:14 AM [facility] Additional Information 09/08/2019 10:14 AM [facility] Comment: Interpreted at [facility] - [address], [place] [address] Automated Review Successful 09/08/2019 10:14 AM [facility] Comment:Specimen processed s uccessfully by automated hospitality host device, PixelapsePrep Imaging System, [employer] ANCILLARY TESTING MAIL LIST PROCESSOR HPV Ordered, Please see separate report 09/08/2019 10:14 AM TIMBER MANAGEMENT ASSISTANT [facility] Note The pap test is a screening technique, not a diagnostic procedure. It is used primarily to screen for squamous cancers and precursor lesions. Published studies have shown that it is subject to both false negative and false positive results. The pap test should not be used as the sole means to diagnose or exclude pre-malignant and malignant lesions. 09/08/2019 10:14 AM [facility] Other (Cervical/Vagina l) 08/28/2019 11:08 AM TIMBER MANAGEMENT ASSISTANT 08/28/2019 4:23 PM TIMBER MANAGEMENT ASSISTANT Katelyn Goins MD PATHOLOGY/ CYTOLOGY [facility] [address] [place] [address], from Last 3 Months or Most Recently Relevant to Health Maintenance Care Teams Furnace Tapper Relationship Specialty Start Date End Date Katelyn Goins MD [address] [place] [address] PCP - General Obstetrics and Gynecology 07/15/20
--- OUTSIDE RECORDS SUMMARY | 2023-12-13 13:43 | XMS_ITS | Encounter Summary ---
Author Organization [place] Address [address] [facility] [place] [address] Care Team Providers Care Shoemaker Custom Name Role Phone Clinic, [facility] Primary Care Provider [phone] Reason for Referral * Diagnostic Imaging Ultrasound (Routine) - Pending Review Specialty Diagnoses / Procedures Referred By Contac t Referred To Contact Radiology. Diagnoses related condition, antepartum Procedures MFM US Comprehensive Single Radha Tubbs [facility] [address] [place] [address] Referral ID Status Reason Start Date Expiration Date V isits Requested Visits Authorized [id number] Pending Review 11/15/2023 11/14/2024 1 1 * Consultation (Routine: Next available opening) - Pending Review Specialty Diagnoses / Procedures Referred By Contac t Referred To Contact Diagnoses related condition, antepartum Radha Tubbs [facility] [address] [place] [address] Rh [facility]aternal [facility] [address] [facility] [address] [place] [address] Referral ID Status Reason Start Date Expiration Date V isits Requested Visits Authorized [id number] Pending Review 11/15/2023 11/14/2024 1 1 Question Answer [facility] [place] RUBEN 05/07/2024 Ultrasound Comprehensive US (>than 18 weeks GA) US PROC NONE MFM Issue OTHER (enter details in Comments) - HTN, obesity MFM Consultation (unrelated to Ultrasound findings): No Inflammatory Bowel Disease Clinic: Joint MFM and GI Consultation: No Chronic Kidney Disease: Joint MFM and Nephrology Consultation No fax Radha Gerardo [facility], Comments HTN, obesity Encounter Details Date Type Department Care Team (Latest Contact Info) Description 11/15/2023 Transcribe Orders [facility] Medicine [facility] [address] [facility] [address] [place] [address] [facility] [address] [place] [address] related condition, antepartum (Primary Dx) Social History Tobacco Use Types Packs/Day Years [...] Info) Description 12/17/2023 2:15 PM CDT Appointment [facility] Medicine [facility] [address] [facility] [address] [place] [address] karis Sosa [facility] [address] [place] [address] Miguelito Pérez MD [address] [place] [address] 12/17/2023 2:45 PM CDT Office Visit [facility]aternal [facility] [place] [address] [place] [phone] Radha Tubbs [facility] [address] [place] [address] Miguelito Pérez MD [address] [facility] [address] [place] [address] Scheduled Orders Name Type Priority Associated Diagnoses Orde r Schedule MFM US Comprehensive Single Imaging Routine related condition, antepartum Expected: 12/05/2023 (Approximate), Expires: 09/16/2024 Scheduled Referrals Name Type Priority Associated Diagnoses Orde r Schedule [facility] Referral - Referral Routine: Next available opening related condition, antepartum Expected: 11/15/2023 (Approximate), Expires: 05/13/2024 documented as of this encounter Visit Diagnoses Diagnosis related condition, antepartum- Primary documented in this encounter Additional Health Concerns Assessment Noted Time PHQ-9 Depression Total Score: 1 01/18/20 18 7:10 AM CDT documented as of this encounter Care Teams Shoemaker Custom Relationship Specialty Start Date End Date [facility], [facility] [address] [place] [address] PCP - General 12/25/18 documented as of this encounter
--- OUTSIDE RECORDS SUMMARY | 2023-12-13 13:43 | XMS_ITS | Encounter Summary ---
Author Organization [place] Address [address] [place] [address] Care Team Providers Care Senior Research Project Manager Name Role Phone Clinic, [facility] Primary Care Provider [phone] [phone] Reason for Visit * Reason Comments Ultrasound L2-HTN, obesity Encounter Details Date Type Department Care Team (Late st Contact Info) Description 12/09/2023 PRE VISIT [facility] Maternal Medicine [place] [facility] [address] [place] [address] Lesa Crowell RN Ultrasound (L2-HTN, obesity) Social History Tobacco Use Types Packs/Day Years [...] Info) Description 12/17/2023 2:15 PM CDT Appointment [facility] Maternal Medicine [place] [facility] [address] [place] [address] Radha [facility]bs [facility] [address] [place] [address] Miguelito Pérez MD [address] [place], [place] [address] 12/17/2023 2:45 PM CDT Office Visit [facility] Maternal Medicine [place] [facility] [address] [facility] [address] [place] [address] Radha Tubbs [facility] [address] [place] [address] Miguelito Pérez MD [address] [place], [place] [phone] documented as of this encounter Visit Diagnoses Not on filedocumented in this encounter Additional Health Concerns Assessment Noted Time PHQ-9 Depression Total Score: 1 01/18/20 18 7:10 AM CDT documented as of this encounter Care Teams Senior Research Project Manager Relationship Specialty Start Date End Date [facility], [facility] [address] [address] PCP - General 12/25/18 documented as of this encounter
--- OUTSIDE RECORDS SUMMARY | 2023-12-13 13:43 | XMS_ITS | Clinical Summary ---
Author Organization [place] Address [address] [facility] [place] [address] Care Team Providers Care Parks Worker Name Role Phone [facility], [place] [facility] Primary Care Provider [phone] [phone] Allergies No known active allergies Medications Medication [...] 06/28/2017 Folliculitis 03/16/2014 06/28/2017 Stye 03/16/2014 06/28/2017 Encounters Date Type Department Care Team Description 12/09/2023 PRE VISIT [facility] Maternal Medicine [facility] [address] [facility] [address] [place] [phone] Lesa Crowell RN Ultrasound (L2-HTN, obesity) 11/15/2023 Medical Correspondence [facility] Info Mgmt Srvcs [address] [place] [phone] Scan, Non-Provider 11/15/2023 Transcribe Orders [facility] Maternal Medicine [facility] [address] [facility] [address] [place] [address] Radha Tubbs A related condition, antepartum (Primary Dx) from Last 3 Months Immunizations Name Administration Dates Next Due Influenza [...] Info) Description 12/17/2023 2:15 PM CDT Appointment [facility] Maternal Medicine [facility] [address] [facility] [address] [place] [phone] Radha Tubbs [address] [address] Miguelito Pérez MD [address] [place] [id number] 12/17/2023 2:45 PM CDT Office Visit [facility] Medicine [facility] [address] [facility] [address] [place] [phone] Radha Tubbs [address] [address] Miguelito Pérez MD [address] [facility] [address] [address] Health Maintenance Due Date Last Done Comments ADVANCE CARE PLANNING 1989 ANNUAL REVIEW OF HM ORDERS 1989 HEPATITIS C SCREENING 2007 YEARLY PREVENTIVE VISIT 09/28/2015 09/27/2014 PAP 05/03/2020 05/03/2017, 03/0 03/2015, 09/27/2014 COVID-19 Vaccine ( season) 2023 12/16/2020, 11/18/2020 PHQ-2 (once per calendar year) 2023 01/16/2018, 05/31/2017, 07/04/2016, Additional history exists MATERNAL SCREENING DISCUSSION 10/10/2023 OBGCT (OB) 01/16/2024 08/23/2017, 01/25/2016 INFLUENZA VACCINE (Season Ended) 2024 04/23/2019, 05/03/2017, 04/04/2016, Additional history exists RSV VACCINE ( & 60+) (1 - Risk 1-dose series) 03/22/2024 GROUP B STREP SCREENING 04/09/2024 10/25/2017, 04/20 DTAP/TDAP/TD IMMUNIZATION (10 - Td or Tdap) 05/15/2029 05/15/2019, 09/06/2017, 03/20/2016, Additional history exists IPV IMMUNIZATION Completed 06/14/1994, , 1989, Additional history exists HEPATITIS B IMMUNIZATION Completed 001, 04/09/2000, 03/05/2000 MENINGITIS IMMUNIZATION Completed 02/25/2008 HIV SCREENING Completed 05/03/2017, 10/20/2015 HPV IMMUNIZATION Aged Out No longer e ligible based on patient's age to complete this topic Pneumococcal Vaccine: Pediatrics (0 to 5 Years) and At-Risk Patients (6 to 64 Years) Aged Out No longer eligible based on patient's age to complete this topic RSV MONOCLONAL ANTIBODY Aged Out No l onger eligible based on patient's age to complete this topic Procedures Procedure Name Priority Date/Time Associated Diagnosis Comments GROUP B STREP PCR Routine 10/25/2017 10: 50 AM CDT Supervision of high risk in third trimester GLUCOSE TOLERANCE GEST SCREEN 1 HOUR Routine 08/23/2017 11:46 AM [facility] PRESS OPERATOR History of gestational hypertension PAP IMAGED THIN [...] David Vaginal Rectal 10/25/2017 12:06 PM CDT [facility] Group B Strep PCR Negative NEG^Negat solo 10/26/2017 2:58 PM CDT [facility] Comment: No GBS DNA detected, presumed negative for GBS or number of bacteria may be below the limit of detection of the assay. Assay performed on incubated broth culture of specimen using Sand[employer] real-time PCR. Vaginal Rectal 10/25/2017 10 :50 AM CDT 10/25/2017 12:00 PM CDT Rhona Crum MD LAB - MICRO GENERAL ORDERABLES [facility] [address] [place] [address] [facility] [address] [place] [address] * Glucose tolerance, gest screen, 1 hour (08/23/2017 11:46 AM FLEXO PRESS OPERATOR) Glu Gest Screen 1hr 50g 102 60 - 129 mg/dL 08/25/2017 10:[address] [facility] Blood specimen (specimen) 08/23/2017 11:46 AM FLEXO PRESS OPERATOR 08/23/2017 11:47 AM FLEXO PRESS OPERATOR Rhona Crum MD LAB - BLOOD ORDERABL ES [facility] [address] [place] [address] * Pap imaged thin layer screen reflex to HPV if ASCUS - recommend age 25 - 29 (05/03/2017 2:46 PM CDT) PAP NIL KACIE Trujillo Report Patient Name: ANTHONY LOVETT MR#: [id number] Specimen #: [id number] Collected: 05/03/2017 Received: 05/06/2017 Reported: 05/07/2017 14:26 [...] RAKAN Angel (ASCP) Processed and screened at [facility] CLINICAL HISTORY: LMP: 02/16/2017 Previous normal pap Date of Last Pap: 09/27/2014, Papanicolaou Test Limitations: ??Cervical cytology is a screening test with limited sensitivity; regular screening is critical for cancer prevention; Pap tests are primarily effective for the diagnosis/preventi on of squamous cell carcinoma, not adenocarcinomas or other cancers. TESTING LAB LOCATION: [address] ??[id number] COLLECTION SITE: Client: ??[facility] Location: [facility] (R) [facility] Cytologic material (specimen) 05/03/2017 2:46 PM CDT 05/06/2017 10:55 AM CDT Aracely Dan MD LAB - OPTIME CLINICA L SPECIMEN COPATH * HIV Antigen Antibody Combo (05/03/2017 10:13 AM CDT) HIV Antigen Antibody Combo Nonreactive NR^Nonrea ctive 05/03/2017 7:14 PM CDT [facility] Comment:HIV-1 p24 Ag & HIV-1 /HIV-2 Ab Not Detected Blood specimen (specimen) 05/03/2017 10:13 AM CDT 05/03/2017 10:14 AM CDT Aracely Dan MD LAB - BLOOD ORDERABL ES [facility] [address] [place] [address] from Last 3 Months or Most Recently Relevant to Health Maintenance Care Teams Parks Worker Relationship Specialty Start Date End Date [facility] [address] [id number] PCP - General 12/25/18
--- NOTE | 2023-12-13 14:15 | CRLHL7_ITS ---
For Patients: As a result of the Century Cures Act, medical imaging exams and procedure reports are released immediately into your electronic medical record. You may view this report before your referring provider. If you have questions, please contact your health care provider. INDICATION: Localized edema. COMPARISON: None. TECHNIQUE: A compression venous ultrasound exam was performed of the right lower extremity using qureshi-scale imaging, color Doppler, and spectral Doppler analysis. FINDINGS: Sonographic imaging of the right lower extremity demonstrates normal compressibility and color Doppler venous blood flow within the common femoral, femoral, deep femoral, and greater saphenous veins. At a lower level the popliteal, peroneal, and posterior tibial veins also show normal compressibility and color Doppler venous blood flow. There is focal subcutaneous edema in the right distal calf area of concern. Limited imaging of the contralateral groin demonstrates a normal spectral waveform and color Doppler venous blood flow within the left common femoral vein. IMPRESSION: 1. Negative for acute DVT in the right lower extremity. 2. Focal subcutaneous edema in the right distal calf. Dictated by Meaghan Haywood MD @ 12/15/2023 2:41:54 AM (Electronically Signed)
== END 2023-12-13 13:42 | disposition home or self-care (01) ==
LOC: US 13:41
PROVIDERS: Visit Provider Registered Nurse
DX: R60.0 Localized edema (principal)
CPT/HCPCS: 93971

== ENCOUNTER 2024-02-07 10:01 | Outpatient (CLI) | payer BC, SELFPAY ==
--- OUTSIDE RECORDS SUMMARY | 2024-02-07 10:03 | XMS_ITS | Clinical Summary ---
Author Organization [facility] Address [place], [place] [address] Care Team Providers Care Wet Primer Powder Blender Name Role Phone Katelyn Goins MD Primary [...] Comments Blood Pressure 145/90 07/15/2020 2:30 PM [facility] PRINT OPERATOR Pulse 77 07/15/2020 2:30 PM AMMONIA PRINT OPERATOR Temperature 36.4 ??C (97.6 ??F) 07/15/2020 2:30 PM CS T Respiratory Rate 16 07/15/2020 2:30 PM AMMONIA PRINT OPERATOR Oxygen Saturation 100% 07/15/2020 2:30 PM AMMONIA PRINT OPERATOR Inhaled Oxygen Concentration - - Weight 99.8 kg (220 lb) 07/15/2020 2:30 PM AMMONIA PRINT OPERATOR Height 170.2 cm (5' 7) 07/15/2020 2:30 PM AMMONIA PRINT OPERATOR Body Mass Index 34.46 07/15/2020 2:30 PM AMMONIA PRINT OPERATOR Plan of Treatment Health Maintenance Due Date [...] Procedure Name Priority Date/Time Associated Diagnosis Comments POUCH MAKING MACHINE OPERATOR THIN PREP PAP SCREEN IMAGED Routine 08/28/2019 11:08 AM AM[facility]IA PRINT OPERATOR from Last 3 Months or Most Recently Relevant to Health Maintenance Results * POUCH MAKING MACHINE OPERATOR THIN PREP PAP SCREEN IMAGED (08/28/2019 11:08 AM AMMONIA PRINT OPERATOR) Case Report Gynecologic Cytology Report ? Case: [id number] ? Authorizing Provider: ??Katelyn Goins ??Collected: ? 08/28/2019 1108 ? M, MD ? Ordering Location: ? [facility] ?Received: ?08/28/2019 1623 ? First Screen: ?Rosemary Ferguson ? Specimen: ?POUCH MAKING MACHINE OPERATOR ThinPrep Vial Screening, Cervical/Vaginal ? 09/08/2019 10:14 AM [facility] EN[facility]AL LABORAT[facility] INTERPRETATION/ RESULT NEGATIVE FOR INTRAEPITHELIAL LESION OR MALIGNANCY (NIL) (none) 09/08/2019 10:14 AM [facility] LAB[facility] IMEN ADEQUACY Satisfactory for evaluation Endocervical component present 09/08/2019 10:14 AM AMMONIA PRINT OPERATOR [facility] HPV REQUEST HPV and PAP 09/08/2019 10:14 AM AMMONIA PRINT OPERATOR [facility] Last Pap Date 09/27/2014 09/08/2019 10:14 AM [facility] Last Pap Result NIL 0 10:14 AM [facility] Menstrual Status 09/08/2019 10:14 AM [facility] Additional Information 09/08/2019 10:14 AM [facility] Comment: Interpreted at [facility] - [address], [place] [address] Automated Review Successful 09/08/2019 10:14 AM [facility] Comment:Specimen processed s uccessfully by automated structural steel trades worker device, o9 SolutionsPrep Imaging System, [employer] ANCILLARY TESTING POUCH MAKING MACHINE OPERATOR HPV Ordered, Please see separate report 09/08/2019 10:14 AM AMMONIA PRINT OPERATOR [facility] Note The pap test [...] pre-malignant and malignant lesions. 09/08/2019 10:14 AM [facility] Other (Cervical/Vagina l) 08/28/2019 11:08 AM [facility] PRINT OPERATOR 08/28/2019 4:23 PM [facility]IA PRINT OPERATOR Katelyn Goins MD PATHOLOGY/ CYTOLOGY [facility] [address] [place] [address], from Last 3 Months or Most Recently Relevant to Health Maintenance Care Teams Wet Primer Powder Blender Relationship Specialty Start Date End Date Katelyn Goins MD [address] [place] [address] PCP - General Obstetrics and Gynecology 07/15/20
--- NOTE | 2024-02-07 10:15 | CRLHL7_ITS ---
For Patients: As a result of the Century Cures Act, medical imaging exams and procedure reports are released immediately into your electronic medical record. You may view this report before your referring provider. If you have questions, please contact your health care provider. INDICATION: chronic HTN, BMI 40 COMPARISON: 10/18/2023 TECHNIQUE: Real time qureshi scale imaging of the fetus was performed. FINDINGS: Sonographic imaging demonstrates a single living intrauterine gestation. Fetus demonstrates a regular cardiac rate of 147 beats per minute. Fetus has a vertex position. The placenta lies anteriorly. Amniotic fluid volume appears normal and there is a single deepest vertical pocket: 6.6 cm. The estimated weight is 1158gm which lies at the 48th %. BPD 29th percentile. HC 17th percentile. AC is 63rd percentile. FL 34th percentile. The HC/AC ratio measures 1.05 range (1.02-1.22). IMPRESSION: Sonographic gestational age 27 weeks 6 days and sonographic due date of 05/02/2024. Good correlation with dates. Estimated weight 48th percentile. Abdominal circumference 63rd percentile. Probable placental ca measuring 5.9 x 2.0 x 4.4 cm Dictated by Lex Eugene MD @ 02/07/2024 11:07:30 AM (Electronically Signed)
== END 2024-02-07 10:02 | disposition home or self-care (01) ==
LOC: US 10:01
PROVIDERS: Visit Provider Obstetrics & Gynecology
DX: O10.912 Unspecified pre-existing hypertension complicating pregnancy, second trimester (principal); Z3A.27 27 weeks gestation of pregnancy
CPT/HCPCS: 76816; 86592

== ENCOUNTER 2024-02-19 13:12 | Outpatient (CLI) | payer BC, SELFPAY ==
--- OUTSIDE RECORDS SUMMARY | 2024-02-19 13:17 | XMS_ITS | Clinical Summary ---
Author Organization [employer] [facility] Address [place], [place] [address] Care Team Providers Care Scrummaster Name Role Phone Katelyn Goins MD Primary [...] Comments Blood Pressure 145/90 07/15/2020 2:30 PM MODELING INSTRUCTOR Pulse 77 07/15/2020 2:30 PM MODELING INSTRUCTOR Temperature 36.4 ??C (97.6 ??F) 07/15/2020 2:30 PM CS T Respiratory Rate 16 07/15/2020 2:30 PM MODELING INSTRUCTOR Oxygen Saturation 100% 07/15/2020 2:30 PM MODELING INSTRUCTOR Inhaled Oxygen Concentration - - Weight 99.8 kg (220 lb) 07/15/2020 2:30 PM MODELING INSTRUCTOR Height 170.2 cm (5' 7) 07/15/2020 2:30 PM MODELING INSTRUCTOR Body Mass Index 34.46 07/15/2020 2:30 PM MODELING INSTRUCTOR Plan of Treatment Health Maintenance Due Date [...] Procedure Name Priority Date/Time Associated Diagnosis Comments SUPERVISOR TYPESETTING THIN PREP PAP SCREEN IMAGED Routine 08/28/2019 11:08 AM MODELING INSTRUCTOR from Last 3 Months or Most Recently Relevant to Health Maintenance Results * SUPERVISOR TYPESETTING THIN PREP PAP SCREEN IMAGED (08/28/2019 11:08 AM MODELING INSTRUCTOR) Case Report Gynecologic Cytology Report ? Case: [id number] ? Authorizing Provider: ??Katelyn Goins ??Collected: ? 08/28/2019 1108 ? M, MD ? Ordering Location: ? [facility] ?Received: ?08/28/2019 1623 ? First Screen: ?Rosemary Ferguson ? Specimen: ?SUPERVISOR TYPESETTING ThinPrep Vial Screening, Cervical/Vaginal ? 09/08/2019 10:14 AM [facility] LABORATORY-C ENTRAL LABORATORY INTERPRETATION/ RESULT NEGATIVE FOR INTRAEPITHELIAL LESION OR MALIGNANCY (NIL) (none) 09/08/2019 10:14 AM [facility] LABORATORY-C ENTRAL LABORATORY IMEN ADEQUACY Satisfactory for evaluation Endocervical component present 09/08/2019 10:14 AM MODELING INSTRUCTOR [facility] LABORATORY-C ENTRAL LABORATORY HPV REQUEST HPV and PAP 09/08/2019 10:14 AM MODELING INSTRUCTOR [facility] LABORATORY-C ENTRAL LABORATORY Last Pap Date 09/27/2014 09/08/2019 10:14 AM [facility] LABORATORY-C ENTRAL LABORATORY Last Pap Result NIL 0 10:14 AM [facility] LABORATORY-C ENTRAL LABORATORY Menstrual Status 09/08/2019 10:14 AM [facility] [employer] [facility] LABORATORY-C ENTRAL LABORATORY Additional Information 09/08/2019 10:14 AM [facility] LABORATORY-C ENTRAL LABORATORY Comment: Interpreted at [facility] - [address], [place] [address] Automated Review Successful 09/08/2019 10:14 AM [facility] Comment:Specimen processed s uccessfully by automated roof technician device, AnyLeafPrep Imaging System, [employer] ANCILLARY TESTING SUPERVISOR TYPESETTING HPV Ordered, Please see separate report 09/08/2019 10:14 AM MODELING INSTRUCTOR [facility] Note The pap test is a screening technique, not a diagnostic procedure. It is used primarily to screen for squamous cancers and precursor lesions. Published studies have shown that it is subject to both false negative and false positive results. The pap test should not be used as the sole means to diagnose or exclude pre-malignant and malignant lesions. 09/08/2019 10:14 AM [facility] Other (Cervical/Vagina l) 08/28/2019 11:08 AM MODELING INSTRUCTOR 08/28/2019 4:23 PM MODELING INSTRUCTOR Katelyn Goins MD PATHOLOGY/ CYTOLOGY [facility] [address] [place] [address], from Last 3 Months or Most Recently Relevant to Health Maintenance Care Teams Scrummaster Relationship Specialty Start Date End Date Katelyn Goins MD [address] [place] [address] PCP - General Obstetrics and Gynecology 07/15/20
[2024-02-19 13:23] VITALS: PULSE 87; O2SAT 98
[2024-02-19 13:34] VITALS: BP 116/58; PULSE 85
[2024-02-19 13:54] VITALS: BP 118/58; PULSE 81
--- NOTE | 2024-02-19 14:57 | PC.OBNST ---
NST Note NST Note Start: 02/19/24 13:19 Freq: ONCE Status: Active Protocol: Document 02/19/24 14:54 YOLANDA (Rec: 02/19/24 14:56 YOLANDA Desktop) NST Note 5 Para (# of births) 3 EDC 05/03/24 Gestational Age In Weeks & Days 29 Weeks & 3 Days High Risk Factors High Blood Pressure - Gestational Patient Presented with Complaint(s) of Other Other Complaints elevated BPs at home Reactive Yes Appropriate for Gestational Age Yes RN Vera Barroso RN Date 02/19/24 Reactive Yes Appropriate for Gestational Age Yes MELY Guzman RNC Date 02/19/24 OB NST charge Yes Complete NST Note via Write Note Yes The provider's electronic signature indicates the NST is reactive/appropriate for gestational age. *Note to provider: If an addendum is required, open the patient's chart and click on the note under the Nurse/Allied Health tab.
== END 2024-02-19 14:20 | disposition home or self-care (01) ==
LOC: OB OUT 13:12 → OB 13:14
PROVIDERS: Visit Provider Obstetrics & Gynecology
DX: O10.913 Unspecified pre-existing hypertension complicating pregnancy, third trimester (principal); Z3A.29 29 weeks gestation of pregnancy
CPT/HCPCS: 59025; G0463

== ENCOUNTER 2024-03-13 12:33 | Outpatient (CLI) | payer BC, SELFPAY ==
--- NOTE | 2024-03-13 13:00 | CRLHL7_ITS ---
For Patients: As a result of the Century Cures Act, medical imaging exams and procedure reports are released immediately into your electronic medical record. You may view this report before your referring provider. If you have questions, please contact your health care provider. INDICATION: Chronic hypertension TECHNIQUE: Real time qureshi scale imaging of the fetus was performed. COMPARISON: 02/07/2024 FINDINGS: Sonographic imaging demonstrates a single living intrauterine gestation. Fetus demonstrates a regular cardiac rate of 149 beats per minute. Fetus has a vertex position. The placenta lies anteriorly. Amniotic fluid volume appears normal and there is a single deepest pocket of 6.1 cm. The estimated weight is 2177gm which lies at the 61st %. On the prior OB ultrasound dated 02/07/2024 the estimated weight was at the 48th percentile. BPD 22nd percentile. HC 20th percentile. AC 82nd percentile. FL 46th percentile. The fetus was active and demonstrated normal breathing movements. There was normal flexion and extension of the trunk and extremities. IMPRESSION: Normal biophysical profile score 8/8. Sonographic gestational age 33 weeks 0 days and sonographic due date of 05/01/2024. Good correlation with dates. Normal interval growth. Estimated weight is 61st percentile. Abdominal circumference 82nd percentile. Dictated by Lex Eugene MD @ 03/13/2024 2:20:17 PM (Electronically Signed)
== END 2024-03-13 12:34 | disposition home or self-care (01) ==
LOC: US 12:33
PROVIDERS: Visit Provider Obstetrics & Gynecology
DX: O10.913 Unspecified pre-existing hypertension complicating pregnancy, third trimester (principal); Z3A.33 33 weeks gestation of pregnancy
CPT/HCPCS: 76816; 76819; 82565; 82570; 84156; 84450; 84460

== ENCOUNTER 2024-03-20 13:05 | Outpatient (CLI) | payer BC, SELFPAY ==
--- NOTE | 2024-03-20 13:00 | CRLHL7_ITS ---
For Patients: As a result of the Century Cures Act, medical imaging exams and procedure reports are released immediately into your electronic medical record. You may view this report before your referring provider. If you have questions, please contact your health care provider. INDICATION: Hypertension COMPARISON: none TECHNIQUE: Real time qureshi scale imaging of the fetus was performed. Without non-stress testing. FINDINGS: Sonographic imaging demonstrates a single living intrauterine gestation. Fetus demonstrates a regular cardiac rate of 142 beats per minute. Fetus has a vertex position. The amniotic fluid volume appears normal and there is a single deepest pocket measurement of cm. The fetus was active and demonstrated normal breathing movements. There was normal flexion and extension of the trunk and extremities. IMPRESSION: Normal biophysical profile score of 8 out of 8. Dictated by Lex Eugene MD @ 03/20/2024 2:35:47 PM (Electronically Signed)
== END 2024-03-20 13:06 | disposition home or self-care (01) ==
LOC: US 13:06
PROVIDERS: Visit Provider Obstetrics & Gynecology
DX: O10.919 Unspecified pre-existing hypertension complicating pregnancy, unspecified trimester (principal)
CPT/HCPCS: 76819; 82565; 82570; 82728; 84156; 84450; 84460

== ENCOUNTER 2024-03-27 12:15 | Outpatient (CLI) | payer BC, SELFPAY ==
--- NOTE | 2024-03-27 12:15 | CRLHL7_ITS ---
For Patients: As a result of the Century Cures Act, medical imaging exams and procedure reports are released immediately into your electronic medical record. You may view this report before your referring provider. If you have questions, please contact your health care provider. INDICATION: Hypertension COMPARISON: 03/20/2024 TECHNIQUE: Real time qureshi scale imaging of the fetus was performed. Without non-stress testing. FINDINGS: Sonographic imaging demonstrates a single living intrauterine gestation. Fetus demonstrates a regular cardiac rate of 133 beats per minute. Fetus has a vertex position. The amniotic fluid volume appears normal and there is a single deepest pocket measurement of 7.3 cm. The fetus was active and demonstrated normal breathing movements. There was normal flexion and extension of the trunk and extremities. IMPRESSION: Normal biophysical profile score of 8 out of 8. Dictated by Lex Eugene MD @ 03/27/2024 12:42:31 PM (Electronically Signed)
== END 2024-03-27 12:16 | disposition home or self-care (01) ==
LOC: US 12:15
PROVIDERS: Visit Provider Obstetrics & Gynecology
DX: O10.919 Unspecified pre-existing hypertension complicating pregnancy, unspecified trimester (principal)
CPT/HCPCS: 76819; 82565; 84450; 84460; 84520

== ENCOUNTER 2024-04-01 13:02 | Outpatient (CLI) | payer BC, SELFPAY ==
[2024-04-01] VITALS (8 sets, daily range): BP systolic 115–122; BP diastolic 61–66; PULSE 83–96; RESP 18; TEMP 37.1; O2SAT 98
--- OUTSIDE RECORDS SUMMARY | 2024-04-01 13:05 | XMS_ITS | Clinical Summary ---
Author Organization [employer] [facility] Address [place], [place] [address] Care Team Providers Care Middleware Developer Name Role Phone Katelyn Goins MD Primary [...] Comments Blood Pressure 145/90 07/15/2020 2:30 PM INSURANCE AND FINANCIAL SERVICES AGENT Pulse 77 07/15/2020 2:30 PM INSURANCE AND FINANCIAL SERVICES AGENT Temperature 36.4 ??C (97.6 ??F) 07/15/2020 2:30 PM CS T Respiratory Rate 16 07/15/2020 2:30 PM INSURANCE AND FINANCIAL SERVICES AGENT Oxygen Saturation 100% 07/15/2020 2:30 PM INSURANCE AND FINANCIAL SERVICES AGENT Inhaled Oxygen Concentration - - Weight 99.8 kg (220 lb) 07/15/2020 2:30 PM INSURANCE AND FINANCIAL SERVICES AGENT Height 170.2 cm (5' 7) 07/15/2020 2:30 PM INSURANCE AND FINANCIAL SERVICES AGENT Body Mass Index 34.46 07/15/2020 2:30 PM INSURANCE AND FINANCIAL SERVICES AGENT Plan of Treatment Health Maintenance Due Date Last Done Comments Tdap 2000 Depression screening for age 12+ 2001 HIV for age 15-65 2004 BMI (ht and wt on same day) for age 18+ 2007 Hepatitis C screening for ag e 18-79 2007 Tetanus booster 08/08/2014 08/08/2004 Pap test for age 21-65 08/28/2022 0, 08/28/2019, 08/30/2010 COVID-19 vaccine series (2022-24 season) 2024 Influenza for age 9-49 03/22/2024 Pneumococcal series for age 6-64 Aged Out No longer eligible b ased on patient's age to complete this topic Procedures Procedure Name Priority Date/Time Associated Diagnosis Comments COMMUNICATIONS SUPERINTENDENT THIN PREP PAP SCREEN IMAGED Routine 08/28/2019 11:08 AM INSURANCE AND FINANCIAL SERVICES AGENT from Last 3 Months or Most Recently Relevant to Health Maintenance Results * COMMUNICATIONS SUPERINTENDENT THIN PREP PAP SCREEN IMAGED (08/28/2019 11:08 AM INSURANCE AND FINANCIAL SERVICES AGENT) Case Report Gynecologic Cytology Report ? Case: [id number] ? Authorizing Provider: ??Katelyn Goins ??Collected: ? 08/28/2019 1108 ? M, MD ? Ordering Location: ? [facility] ?Received: ?08/28/2019 1623 ? First Screen: ?Rosemary Ferguson ? Specimen: ?COMMUNICATIONS SUPERINTENDENT ThinPrep Vial Screening, Cervical/Vaginal ? 09/08/2019 10:14 AM [facility] LABORATORY-C ENTRAL LABORATORY INTERPRETATION/ RESULT NEGATIVE FOR INTRAEPITHELIAL LESION OR MALIGNANCY (NIL) (none) 09/08/2019 10:14 AM [facility] LABORATORY-C ENTRAL LABORATORY IMEN ADEQUACY Satisfactory for evaluation Endocervical component present 09/08/2019 10:14 AM INSURANCE AND FINANCIAL SERVICES AGENT [facility] LABORATORY-C ENTRAL LABORATORY HPV REQUEST HPV and PAP 09/08/2019 10:14 AM INSURANCE AND FINANCIAL SERVICES AGENT [facility] LABORATORY-C ENTRAL LABORATORY Last Pap Date 09/27/2014 09/08/2019 10:14 AM [facility] LABORATORY-C ENTRAL LABORATORY Last Pap Result NIL 0 10:14 AM [facility] LABORATORY-C ENTRAL LABORATORY Menstrual Status 09/08/2019 10:14 AM [facility] LABORATORY-C ENTRAL LABORATORY Additional Information 09/08/2019 10:14 AM [facility] LABORATORY-C ENTRAL LABORATORY Comment: Interpreted at [facility] - [address], [place] [address] Automated Review Successful 09/08/2019 10:14 AM [facility] Comment:Specimen processed s uccessfully by automated accounts payable supervisor device, NirvanixPrep Imaging System, [employer] ANCILLARY TESTING COMMUNICATIONS SUPERINTENDENT HPV Ordered, Please see separate report 09/08/2019 10:14 AM INSURANCE AND FINANCIAL SERVICES AGENT [facility] Note The pap test [...] and malignant lesions. 09/08/2019 10:14 AM [facility] Other (Cervical/Vagina l) 08/28/2019 11:08 AM INSURANCE AND FINANCIAL SERVICES AGENT 08/28/2019 4:23 PM INSURANCE AND FINANCIAL SERVICES AGENT Katelyn Goins MD PATHOLOGY/ CYTOLOGY [facility] [address] [place] [address], from Last 3 Months or Most Recently Relevant to Health Maintenance Care Teams Middleware Developer Relationship Specialty Start Date End Date Katelyn Goins MD [address] [place] [address] PCP - General Obstetrics and Gynecology 07/15/20
[2024-04-01 14:09] LABS: Basophils Absolute Auto 0.01 K/uL (0.00-0.30); Basophils Percent Auto 0.2 % (0.0-3.0); Eosinophils Absolute Auto 0.03 K/uL (0.00-0.50); Eosinophils Percent Auto 0.5 % (0.0-7.0); Hematocrit 31.5 % (33.0-51.0); Hemoglobin* 10.7 gm/dL (12.0-16.0); Immature Granulocytes Abs Auto 0.05 K/uL (0.00-0.30); Immature Granulocytes Pct Auto 0.8 %; Lymphocytes Percent Auto 16.4 % (20-44); Mean Corpuscular HGB Conc 34 gm/dL (32-36); Mean Corpuscular Hemoglobin 30 pg (26-34); Mean Corpuscular Volume 87 fL (80-100); Monocytes Percent Auto 5.5 % (0.0-11.0); Neutrophils Percent Auto 76.6 % (42.0-72.0); Platelet Count* 194 K/uL (140-440); RDW Coefficient of Variation % 17.3 % (11.5-15.5); Red Blood Count 3.63 m/uL (4.00-5.20); White Blood Count* 6.33 K/uL (4.50-11.00)
[2024-04-01 14:15] LABS: Slide Review Reflex No
[2024-04-01 14:24] LABS: Alanine Aminotransferase* 13 U/L (4-35); Aspartate Amino Transferase* 22 U/L (12-35); Creatinine* 0.5 mg/dL (0.5-1.5); Estimated Glomerular Filt Rate 126 ml/min
--- NOTE | 2024-04-01 17:10 | PC.OBNST ---
NST Note NST Note Start: 04/01/24 13:09 Freq: ONCE Status: Discharge Protocol: Document 04/01/24 17:09 SANTO (Rec: 04/01/24 17:10 SANTO [id number]) NST Note 5 Para (# of births) 3 EDC 05/03/24 Gestational Age In Weeks & Days 35 Weeks & 3 Days High Risk Factors High Blood Pressure - Preexisting Patient Presented with Complaint(s) of Other If Observation after an injury, describe Right sided twinges Other Complaints Dr. Bond reviewed EFM strip before discharge Reactive Yes Appropriate for Gestational Age Yes MELY Cárdenas RN Date 04/01/24 Reactive Yes Appropriate for Gestational Age Yes MELY Guzman RNC Date 04/01/24 OB NST charge Yes Complete NST Note via Write Note Yes The provider's electronic signature indicates the NST is reactive/appropriate for gestational age. *Note to provider: If an addendum is required, open the patient's chart and click on the note under the Nurse/Allied Health tab.
== END 2024-04-01 14:34 | disposition home or self-care (01) ==
LOC: OB OUT 13:04 → OB 13:05
PROVIDERS: Visit Provider Obstetrics & Gynecology
DX: O10.913 Unspecified pre-existing hypertension complicating pregnancy, third trimester (principal); Z3A.35 35 weeks gestation of pregnancy
CPT/HCPCS: 36415; 59025; 82565; 84450; 84460; 85025; G0463

== ENCOUNTER 2024-04-03 12:57 | Outpatient (CLI) | payer BC, SELFPAY ==
--- NOTE | 2024-04-03 13:00 | CRLHL7_ITS ---
For Patients: As a result of the Century Cures Act, medical imaging exams and procedure reports are released immediately into your electronic medical record. You may view this report before your referring provider. If you have questions, please contact your health care provider. INDICATION: Hypertension TECHNIQUE: Ultrasound OB pelvis transabdominal. Real-time qureshi-scale imaging of the fetus was performed with color Doppler and spectral Doppler analysis of the umbilical artery without stress testing. COMPARISON: 03/27/2024 FINDINGS: Sonographic imaging demonstrates a single living intrauterine gestation. Fetus demonstrates a regular cardiac rate of 152 beats per minute. Fetus has a cephalic orientation. The placenta lies anterior. Amniotic fluid volume appears normal with a MVP of 6.3 cm. breathing movements, motion, and tone were all observed. IMPRESSION: Single viable intrauterine with a biophysical profile 02/26. Dictated by Wilbert Chavis MD @ 04/03/2024 2:46:29 PM (Electronically Signed)
== END 2024-04-03 12:58 | disposition home or self-care (01) ==
LOC: US 12:58
PROVIDERS: Visit Provider Obstetrics & Gynecology
DX: O10.919 Unspecified pre-existing hypertension complicating pregnancy, unspecified trimester (principal)
CPT/HCPCS: 76819; 82565; 84450; 84460; 84520; 87081; 87653

== ENCOUNTER 2024-04-11 15:54 | Inpatient (IN) | payer BC, SELFPAY ==
[2024-04-11] VITALS (14 sets, daily range): BP systolic 129–134; BP diastolic 61–69; PULSE 74–94; TEMP 36.9–37.2; O2SAT 96–99; BMI 40.1
--- OUTSIDE RECORDS SUMMARY | 2024-04-11 15:56 | XMS_ITS | Clinical Summary ---
Author Organization [employer] [facility] Address [place], [place] [address] Care Team Providers Care Leather Sprayer Name Role Phone Katelyn Goins MD Primary [...] Comments Blood Pressure 145/90 07/15/2020 2:30 PM WIND DEVELOPMENT DIRECTOR Pulse 77 07/15/2020 2:30 PM WIND DEVELOPMENT DIRECTOR Temperature 36.4 ??C (97.6 ??F) 07/15/2020 2:30 PM CS T Respiratory Rate 16 07/15/2020 2:30 PM WIND DEVELOPMENT DIRECTOR Oxygen Saturation 100% 07/15/2020 2:30 PM WIND DEVELOPMENT DIRECTOR Inhaled Oxygen Concentration - - Weight 99.8 kg (220 lb) 07/15/2020 2:30 PM WIND DEVELOPMENT DIRECTOR Height 170.2 cm (5' 7) 07/15/2020 2:30 PM WIND DEVELOPMENT DIRECTOR Body Mass Index 34.46 07/15/2020 2:30 PM WIND DEVELOPMENT DIRECTOR Plan of Treatment Health Maintenance Due Date [...] Procedure Name Priority Date/Time Associated Diagnosis Comments SYSTEMS MANAGER THIN PREP PAP SCREEN IMAGED Routine 08/28/2019 11:08 AM WIND DEVELOPMENT DIRECTOR from Last 3 Months or Most Recently Relevant to Health Maintenance Results * SYSTEMS MANAGER THIN PREP PAP SCREEN IMAGED (08/28/2019 11:08 AM WIND DEVELOPMENT DIRECTOR) Case Report Gynecologic Cytology Report ? Case: [id number] ? Authorizing Provider: ??Katelyn Goins ??Collected: ? 08/28/2019 1108 ? M, MD ? Ordering Location: ? [facility] ?Received: ?08/28/2019 1623 ? First Screen: ?Rosemary Ferguson ? Specimen: ?SYSTEMS MANAGER ThinPrep Vial Screening, Cervical/Vaginal ? 09/08/2019 10:14 AM [facility] LABORATORY-C ENTRAL LABORATORY INTERPRETATION/ RESULT NEGATIVE FOR INTRAEPITHELIAL LESION OR MALIGNANCY (NIL) (none) 09/08/2019 10:14 AM [facility] LABORATORY-C ENTRAL LABORATORY IMEN ADEQUACY Satisfactory for evaluation Endocervical component present 09/08/2019 10:14 AM WIND DEVELOPMENT DIRECTOR [facility] LABORATORY-C ENTRAL LABORATORY HPV REQUEST HPV and PAP 09/08/2019 10:14 AM WIND DEVELOPMENT DIRECTOR [facility] LABORATORY-C ENTRAL LABORATORY Last Pap Date 09/27/2014 09/08/2019 10:14 AM [facility] LABORATORY-C ENTRAL LABORATORY Last Pap Result NIL 0 10:14 AM [facility] LABORATORY-C ENTRAL LABORATORY Menstrual Status 09/08/2019 10:14 AM [facility] LABORATORY-C ENTRAL LABORATORY Additional Information 09/08/2019 10:14 AM [facility] LABORATORY-C ENTRAL LABORATORY Comment: Interpreted at [facility] - [address], [place] [address] Automated Review Successful 09/08/2019 10:14 AM [facility] Comment:Specimen processed s uccessfully by automated beater room helper device, [employer]Prep Imaging System, [employer] ANCILLARY TESTING SYSTEMS MANAGER HPV Ordered, Please see separate report 09/08/2019 10:14 AM WIND DEVELOPMENT DIRECTOR [facility] Note The pap test [...] pre-malignant and malignant lesions. 09/08/2019 10:14 AM [facility] Other (Cervical/Vagina l) 08/28/2019 11:08 AM WIND DEVELOPMENT DIRECTOR 08/28/2019 4:23 PM WIND DEVELOPMENT DIRECTOR Katelyn Goins MD PATHOLOGY/ CYTOLOGY [facility] [address] [place] [address], from Last 3 Months or Most Recently Relevant to Health Maintenance Care Teams Leather Sprayer Relationship Specialty Start Date End Date Katelyn Goins MD [address] [place] [address] PCP - General Obstetrics and Gynecology 07/15/20
--- NOTE | 2024-04-11 17:27 | W.PM.LDBA ---
Subjective History of Present Illness Date Seen: 04/11/24 Narrative: Patient is being admitted to Labor and Delivery for induction of labor for chronic hypertension with superimposed pre-eclampsia without severe features. She is a 33 year old -0-1-3 woman at 36 weeks, 6 days gestation. Her full history and physical was dictated by Dr. Reed on 04/03/24. Please see this for details. Specific Issues/Plans Spouse Chase. Children: Richy, Jolene, Glen. Baby: Girl Kayce H&P done 04/03/[address] Reed. # Chronic hypertension with superimposed pre-eclampsia without severe features (P/C ratio 0.32 on 03/20/24) History of gestational htn in 1st , PP HTN after 2nd , and PP severe pre E after 3rd . Was readmitted during PP period after 2nd and 3rd deliveries. Elevated BP in clinic at her first visit. Did not initiate antihypertensive. Continue to monitor. 11/14/3033: Initiated labetalol 100mg PO BID 03/13/24: Increased labetolol to 200 mg BID, normal preE labs Baseline pre E labs: normal. P/C: 0.00 P/C ratio 0.10 Total protein 24 hour: 190 Daily low dose aspirin starting at 12 weeks. Weekly BPP and/or NST starting at 32 weeks Growth ultrasound Q4 weeks starting at 28 weeks. Delivery at 37 weeks recommended, sooner if severe features develop # BMI 40.0 hgb A1c: 4.8% Rec. low dose aspirin at 12 weeks. Nutrition referral placed Recommend Anesthesia referral Level 2 US: referral placed on 11/15/2023. # Anemia 32 week hgb 10.3 Ferrous sulfate QOD # Subchorionic hemorrhage 2.7 x 3.2 x 0.7 cm # Will need pap smear # History of macrosomia (largest baby - 9lb 7oz). Consider growth in 3rd trimester. # Varicose veins. Encouraged compression stockings. # 12/13/23: RLE swelling along with red, tender area on leung. Doppler: Negative for acute DVT in the right lower extremity. Focal subcutaneous edema in the right distal calf. # Contraception: Wants permanent sterilization: bilateral salpingectomy has private insurance so no federal forms signed. US: - Level II US on 5/28/24: EFW 28th percentile, AC 41st percentile. Placenta is anterior/fundal, no previa, greater than 2 cm from internal os. Three-vessel cord. MVP 4.6 cm. Cervical length 4 cm. No anomalies commonly detected by ultrasound were identified. However, multiple suboptimal views. Recommended RUBEN be changed to 05/03/2024 as pateint was on COCP at conception. Repeat ultrasound in 4 weeks to re-evaluate anatomy. - Normal anatomy. EFW 51st percentile, AC at the 42nd percentile. MVP 6.4 cm. Cervical length 3.94 cm. - 03/13: EFW 61%ile, MVP 6.1cm. 02/26 BPP. - 03/27/2024: Vertex, BPP 02/26. SDP 7.3 cm Flu: recommended. Declined. Covid: recommended. Declined. Tdap: 02/28/2024. OB - Problem Based A/P Additional Plan (1) Pre-eclampsia superimposed on chronic hypertension, antepartum: Status: Acute (2) : Status: Acute Plan: Using aseptic technique, cook catheter inserted through the cervix and intrauterine balloon inflated to 60 mL. Intravaginal balloon inflated to same. Patient tolerated procedure well. Begin low-dose Pitocin at 12:30 a.m.. HELLP labs to be repeated now. Continue labetalol 200 mg b.i.d.. Anticipate Pitocin augmentation at usual doses tomorrow morning. Delivery/Labor/Induction Plan Induction method: Intracervical balloon catheter OB Exam Physical Exam Vital signs: Temp Pulse BP Pulse Ox 98.4 F 75 132/69 99 04/11/24 16:16 04/11/24 16:17 04/11/24 16:17 04/11/24 16:12 Narrative: Physical exam: General: No acute distress Psych: Alert and oriented x3, full affect HEENT: Normocephalic, atraumatic Neck: No cervical adenopathy, no thyromegaly Heart: Regular rate and rhythm, no murmur rub or gallop Lungs: Clear to auscultation bilaterally Abdomen: soft, nontender, gravid Lower extremities: 3+ edema bilaterally, PRAKASH hose on Cervix: 1.5 / 50 / -3 / midposition / moderate consistency tracing: Baseline 130 / accelerations present / no decelerations / moderate variability. .
[2024-04-11 17:47] LABS: Hematocrit 32.8 % (33.0-51.0); Hemoglobin* 11.1 gm/dL (12.0-16.0); Mean Corpuscular HGB Conc 34 gm/dL (32-36); Mean Corpuscular Hemoglobin 30 pg (26-34); Mean Corpuscular Volume 87 fL (80-100); Platelet Count* 194 K/uL (140-440); Red Blood Count 3.76 m/uL (4.00-5.20); White Blood Count* 7.24 K/uL (4.50-11.00)
[2024-04-11 17:52] LABS: Slide Review Reflex No
[2024-04-11 18:06] LABS: Alanine Aminotransferase* 15 U/L (4-35); Aspartate Amino Transferase* 23 U/L (12-35); Creatinine* 0.5 mg/dL (0.5-1.5); Est. Creatinine Clearance* 154.17; Estimated Glomerular Filt Rate 126 ml/min
[2024-04-11 18:07] LABS: Blood Urea Nitrogen* 7 mg/dL (5-24)
[2024-04-11 18:22] LABS: Total Protein Urine 9 mg/dL
[2024-04-11 18:23] LABS: Creatinine Urine 30.5 mg/dL
[2024-04-11] MEDS: LABETALOL HCL 100 MG TABLET 200 MG PO (20:59)
[2024-04-11] MEDS: hydrOXYzine pamoate 25 MG CAPSULE 100 MG PO (21:50)
[2024-04-11] MEDS: MORPHINE 10 MG/ML inj IM (21:50)
[2024-04-11] MEDS: CALCIUM CARBONATE 500 MG CHEW PO (23:59)
[2024-04-12] VITALS (135 sets, daily range): BP systolic 104–157; BP diastolic 53–80; PULSE 62–100; RESP 16–19; TEMP 36.4–37.2; O2SAT 94–100
[2024-04-12] MEDS: LACTATED RINGERS 1000 ML 1,000 ML 124 ML IV (00:13)
[2024-04-12] MEDS: OXYTOCIN 30 unit/500 ML in NS 30 UNIT/500 ML BAG IVPB (00:13)
[2024-04-12] MEDS: LACTATED RINGERS 1000 ML 1,000 ML 115 ML IV (08:34)
--- NOTE | 2024-04-12 08:51 | PM.OBPNL ---
Subjective Date Seen: 04/12/24 Narrative: Amy was able to sleep the second half of the night. Cook catheter was removed earlier this morning. She is currently augmented with 12 milliunits a minute of Pitocin. She is feeling some contractions. Objective Vital Signs: Last Vital Signs Temp 97.6 F 04/12/24 08:51 Pulse 82 04/12/24 07:18 Resp 19 04/12/24 08:51 BP 118/60 04/12/24 07:18 Pulse Ox 98 04/12/24 04:38 She has been normotensive throughout the night Comments: Gen - NAD Cervical exam: 5 cm, 75% effaced,-2 station. AROM for clear fluid. tracing in the last hour: Baseline 135, moderate variability. There are stretches of discontinuous tracing, but it appears that there are intermittent brief variables. Accelerations present. On external monitor, regular contractions are apparent Assessment Assessment: early labor Amniotic Membrane Status: AROM Status: Category ll Tracing Comments: Category 2 in the last hour, overall reassuring. GBS negative. Labor Progress: Good progress in dilation and effacement overnight. Cervix now favorable. Maternal Status: Chronic hypertension with superimposed preeclampsia. Normotensive throughout the night. Normal HELLP labs last night. Plan Plan: Continue Pitocin augmentation. Continuous monitoring. Anticipate spontaneous vaginal delivery.
[2024-04-12] MEDS: fentaNYL 250 MCG/5 ML inj 100 MCG EPIDURAL (11:06)
[2024-04-12] MEDS: LIDOCAINE 2% (PF) 5 ML VIAL EPIDURAL (11:06)
[2024-04-12] MEDS: ROPIVACAINE 0.2% 100 ml 100 ML 12 MG EPIDURAL ×2 (11:11→19:14)
--- NOTE | 2024-04-12 11:23 | P.ANBPRC_ITS ---
[facility] Medical History Macrosomia ?P08.0 - Exceptionally large baby (ICD-10) Anxiety ?F41.9 - Anxiety disorder, unspecified (ICD-10) Endometritis ?N71.9 - Inflammatory disease of uterus, unspecified (ICD-10) Superficial thrombophlebitis ?I80.9 - Phlebitis and thrombophlebitis of unspecified site (ICD-10) Ovarian cyst ?N83.209 - Unspecified ovarian cyst, unspecified side (ICD-10) Abnormal uterine bleeding (AUB) ?N93.9 - Abnormal uterine and vaginal bleeding, unspecified (ICD-10) Vaginal delivery ?O80 - Encounter for full-term uncomplicated delivery (ICD-10) Severe pre-eclampsia affecting puerperium ?O14.15 - Severe pre-eclampsia, complicating the puerperium (ICD-10) Surgical History Status post hysteroscopic myomectomy ?Z98.890 - Other specified postprocedural states (ICD-10) Social History 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 What is your current living situation?: I presently have a place to live Problems where you live: no known problems In the past 12 months, utilities in danger of being shut off: no In past 12 months, lack of transportation kept you from medical appts, meetings, work, or getting things needed for daily living: no In the past 12 mos, have been you worried that your food would run out before you had money to buy more?: never true In the past 12 mos, the food you bought just didn't last and you didn't have money to buy more?: never true Do you want help finding or keeping work or a job: I do not need or want help Physical activity type: none Smoking Status: Never smoker Do you use any of these nicotine containing products: None How often do you have a drink containing alcohol: never How often do you have six or more drinks on one occasion: Never AUDIT-C Alcohol total score: 0 Non-prescribed substance use: denies use Caffeine: Yes (occasionally) How often does anyone, including family, friends and others, physically hurt you : never How often does anyone, including family, friends and others, insult or talk down to you: never How often does anyone, including family, friends and others, threaten you with harm: never How often does anyone, including family, friends and others, scream or curse at you: never Little interest or pleasure in doing things: not at all Feeling down, depressed, or hopeless: not at all Are you currently sexually active: Yes Are you using contraception or practicing any form of control: Yes service: No Meds Home Medications and Allergies Home Medications ?Medication ?Instructions ?Recorded ?Confirmed ?Type docosahexaenoic acid 200 mg 200 mg PO DAILY 10/18/23 04/11/24 History capsule ( DHA) aspirin 81 mg tablet,delayed 81 mg PO QDAY 11/15/23 04/11/24 History release (Adult Low Dose Aspirin) Allergies Allergy/AdvReac Type Severity Reaction Status Date / Time No Known Drug Allergies Allergy Verified 04/12/24 01:39 Results Labs Labs: Laboratory Results - last 24 hr 04/11/24 17:39 WBC 7.24 RBC 3.76 L Hgb 11.1 L Hct 32.8 L MCV 87 MCH 30 MCHC 34 Plt Count 194 BUN 7 Creatinine 0.5 Estimated Creat Clear 154.17 Estimated GFR 126 AST 23 ALT 15 Urine Creatinine 30.5 Protein/Creatinin Ratio 0.30 H Urine Total Protein 9 Blood Type O Positive Antibody Screen NEGATIVE Vital Signs Vital Signs: Last Vital Signs Temp 98 F 04/12/24 10:48 Pulse 73 04/12/24 11:21 Resp 19 04/12/24 08:51 BP 112/55 L 04/12/24 11:21 Pulse Ox 100 04/12/24 11:18 Weight: 116.12 kg Height: 170.18 cm Anesthesia Procedures Epidural Insertion Patient Location: OB Start Time: :30 Stop Time: :30 Start Date: 04/12/24 Stop Date: 04/12/24 Reason for Block: primary anesthetic Patient Position: sitting Performed By: Rhys Estrada Preanesthetic Checklist: IV checked, risks and benefits discussed, surgical consent, monitors and equipment checked, pre-op evaluation, timeout performed and anesthesia consent Prep: chlorhexidine gluconate Monitoring: blood pressure monitoring, cardiac technologist, continuous pulse oximetry and heart rate Approach: midline Vertebral Space: lumbar (1-5) Needle Type: Tuohy needle Injection Technique: continuous catheter Needle gauge: 17 Needle Length (cm): 10 cm Needle Insertion Depth (cm): 6 Catheter Gauge: 19 Catheter Type: multi-orifice Catheter at skin depth (cm): 12 Test Dose Result: negative and lidocaine 1.5% with epinephrine 1 to 200,000 Events: other
--- NOTE | 2024-04-12 11:47 | P.OBPN_ITS ---
Subjective Time Seen by Provider: 11:47 Date Seen: 04/12/24 Narrative: Amy had epidural since our last exam. She is feeling quite comfortable. Objective Vital Signs: Last Vital Signs Temp 98 F 04/12/24 10:48 Pulse 68 04/12/24 11:43 Resp 19 04/12/24 08:51 BP 123/54 L 04/12/24 11:43 Pulse Ox 100 04/12/24 11:43 Comments: Gen - NAD Cervical exam: 5 cm, 75% effaced,-2 station. Continues to leak clear fluid. No change since last exam. tracing in the last hour: Baseline 135, moderate variability. Two isolat ed, brief variable decelerations. Accelerations present. On external monitor, contractions are not registering Assessment Assessment: early labor Amniotic Membrane Status: AROM Status: Category ll Tracing Comments: Category 2 in the last hour, overall reassuring. GBS negative. Labor Progress: No change in cervix since last exam. Not yet in active labor. Maternal Status: Chronic hypertension with superimposed preeclampsia. Normotensive since last exam. Normal HELLP labs last night. Plan Plan: Continue Pitocin augmentation. Continuous monitoring.
[2024-04-12] MEDS: LABETALOL HCL 100 MG TABLET 200 MG PO ×2 (12:04→21:54)
[2024-04-12] MEDS: LACTATED RINGERS 1000 ML 1,000 ML 915 ML IV (13:05)
--- NOTE | 2024-04-12 13:26 | PM.OBPNL ---
Subjective Time Seen by Provider: 11:47 Date Seen: 04/12/24 Narrative: I was called by RN with report of recurrent variables on tracing. Pitocin was stopped and position changes and bolus initiated. Amy is comfortable. Catheter is in place. Objective Vital Signs: Last Vital Signs Temp 98.1 F 04/12/24 12:43 Pulse 76 04/12/24 13:19 Resp 19 04/12/24 08:51 BP 113/59 L 04/12/24 13:19 Pulse Ox 100 04/12/24 13:23 Comments: Gen - NAD Cervical exam: 6 cm, 80% effaced,0 station. Continues to leak clear fluid. tracing in the 30 minutes: Baseline 135, moderate to minimal variability. Accelerations present. There was a run of deep variable decelerations with contractions, but there were only brief and shallow decelerations in the 10 minutes surrounding the exam. Contractions were not registering on toco. IUPC and scalp electrode were placed after verbal consent obtained from patient. Assessment Assessment: active labor Amniotic Membrane Status: AROM Status: Category ll Tracing Comments: Category 2 in the 30 minutes. Moderate to minimal variability, recurrent variable decelerations of varying depths. GBS negative. Labor Progress: Now in active labor. Per RN, cervix was 6.5 cm at 1245 PM. Maternal Status: Chronic hypertension with superimposed preeclampsia. Normotensive since last exam. Normal HELLP labs last night. Plan Plan: Continuous monitoring. Monitor strength and timing of contractions with IUPC and adjust pitocin accordingly. Hold until there are no significant, recurrent variables. FSE placed as well. Continue to position to promote descent. If recurrent deep variables recur, I favor initiation of amnioinfusion.
--- NOTE | 2024-04-12 16:55 | PM.OBPNL ---
Subjective Time Seen by Provider: 16:55 Date Seen: 04/12/24 Narrative: Amy is comfortable. Catheter is in place. Objective Vital Signs: Last Vital Signs Temp 98.2 F 04/12/24 16:49 Pulse 80 04/12/24 16:49 Resp 19 04/12/24 08:51 BP 129/66 04/12/24 16:49 Pulse Ox 100 04/12/24 16:14 Comments: Gen - NAD Cervical exam: 6 cm, 80% effaced, -2 station. ROP, asynclitic IUPC and FSE are dislodged at time of exam. tracing in the 30 minutes: Baseline 140, moderate variability, accelerations present, intermittent brief variable decelerations. Prior to dislodging IUPC, contractions were not adequate Assessment Assessment: active labor Amniotic Membrane Status: AROM Status: Category ll Tracing Comments: Category 2, but with brief shallow variable decelerations. Overall reassuring. GBS negative. Labor Progress: Protracted active phase. Per RN, cervix was 6.5 cm at 1245 PM. Maternal Status: Chronic hypertension with superimposed preeclampsia. Normotensive since last exam. Normal HELLP labs last night. Plan Plan: Continuous monitoring. Continue to position to promote descent. Continue pitocin augmentation. If she does not progress in the next two hours, I will offer her for arrest of descent.
--- NOTE | 2024-04-12 19:01 | PM.OBPNL ---
Subjective Time Seen by Provider: 16:55 Date Seen: 04/12/24 Narrative: Amy is comfortable. She is feeling some contractions. Objective Vital Signs: Last Vital Signs Temp 98.2 F 04/12/24 16:49 Pulse 86 04/12/24 18:56 Resp 19 04/12/24 08:51 BP 149/62 H 04/12/24 18:56 Pulse Ox 100 04/12/24 16:14 Comments: Gen - NAD Cervical exam: 6 cm, 80% effaced, -2 station. ROP, asynclitic tracing in the 30 minutes: Baseline 145, moderate variability, accelerations present, no decelerations. Contractions are not registering on toco Assessment Assessment: active labor Amniotic Membrane Status: AROM Status: Category l Tracing Comments: Category 1 GBS negative. Labor Progress: Arrest of dilation in active phase Maternal Status: Chronic hypertension with superimposed preeclampsia. Newly elevated BPs in last 2 hours. Undesired fertility. Plan Plan: We discussed diagnosis of arrest of dilation. We discussed options of doing augmentation with hopes of progression and with bilateral salpingectomy. She has decided on the latter. We discussed risks of procedures, including bleeding/hemorrhage, transfusion, infection, scarring, damage to internal organs, thromboembolism. She will need Lovenox given history of recurrent thrombophlebitis and delivery combines with BMI. Consent form was reviewed with and signed by patient. Cefazolin for preoperative antibiotics, as well as azithromycin.
[2024-04-12] MEDS: AZITHROMYCIN 500 MG in 0.9 % SODIUM CHLORIDE 250 ml 250 ML 255 MG IVPB (19:05)
[2024-04-12] MEDS: CEFAZOLIN 1 GM inj 3 GM IVP (19:44)
[2024-04-12] MEDS: KETOROLAC 30 MG/ML inj IVP (20:47)
--- NOTE | 2024-04-12 21:34 | P.ANES_ITS ---
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
--- NOTE | 2024-04-12 21:35 | P.NB_ITS ---
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 Images saved: Yes Medications given in 5ml increments after negative aspiration: Marcaine %: 0.25 mL: 30 Needle gauge: 20 and Exparel mL: 10 Needle gauge: 20 Patient tolerated procedure well: Yes Block Charges Block Charge (with Pro Fee): TAP Bilateral Use of Ultrasound Machine for Block: Yes- US Guidance/pain block
--- NOTE | 2024-04-12 22:31 | PM.OBPRCCS ---
Procedure Date of procedure: 04/12/24 Procedure Done: Global Will [facility] bill your pro fee for this procedure?: Yes Procedure Description: PREOPERATIVE DIAGNOSIS: 37 weeks, 0 days gestation Preeclampsia superimposed on chronic hypertension Arrest of dilation Undesired fertility POSTOPERATIVE DIAGNOSIS: Same PROCEDURE: Primary low-transverse section with bilateral salpingectomy SURGEON: Haley Mao MD ANESTHESIA: Epidural IV FLUIDS: 1750 mL crystalloid QBL: 888 mL FINDINGS: 1. Female infant, cephalic OA presentation, tight double nuchal cord, Apgars of 8 and 9, weight 2750 g, or 6 lb, 1 oz. 2. Normal appearance to uterus, bilateral tubes and ovaries. COMPLICATIONS: None PROCEDURE IN DETAIL: Patient was taken to the operating room with IV running. She received cefazolin and azithromycin in preoperative prophylaxis. Epidural anesthesia had previously been administered. Yanez catheter was inserted. She was prepped and draped in the usual sterile fashion. Anesthesia was tested and found to be adequate. A low-transverse skin incision was made with a scalpel and carried through to the underlying layer of fascia with the scalpel. The subcutaneous fat was dissected off the underlying fascia bluntly. The fascia was nicked in the midline with a scalpel, and this incision was extended laterally with scissors. The rectus muscles were in the midline. Peritoneum was identified and entered bluntly. Bovie was used to widen this opening laterally. Carlos O retractor was inserted and tightened down, providing excellent visualization of the lower uterine segment. The bladder reflection was found to be well below the planned site for hysterotomy. Low-transverse uterine incision was made with a scalpel. Incision was widened bluntly. The infant's head was grasped through the hysterotomy and delivered with the help of fundal pressure. The remainder of the body delivered without incident. Cord was clamped and cut after 30 seconds. was handed off to attending nurses. The placenta was delivered with gentle traction on the cord. The uterus was cleaned of all clots and debris with the dry lap pad. The uterus was exteriorized. The hysterotomy was reapproximated with 0 Vicryl in a running, locked fashion. Second layer of the same suture was used in imbricating fashion to obtain hemostasis. Bovie was also required to obtain hemostasis. The adnexa were examined and noted to be normal in appearance. Attention was turned to the right fallopian tube. Mesosalpinx beneath it was grasped with Gonzales clamps. It was divided from its blood supply laterally with the LigaSure exact device. Moving laterally to medially through the mesosalpinx, it was cauterized and transected with that device and sent to pathology. Hemostasis of the dissection bed was assured with Bovie. This procedure was then repeated on the patient's left side, and hemostasis was again noted. The cul-de-sac was cleared of clots and debris with a laparotomy pad. The uterus was returned to the abdomen. The gutters were cleansed with dampened laparotomy sponge, removing any further clots and debris. The Carlos O retractor was removed. The hysterotomy was reexamined and found to be hemostatic. The peritoneum was reapproximated with 2 0 Vicryl in a running fashion. The rectus muscles were examined and found to be hemostatic. The fascia was reapproximated with 0 Vicryl in a running fashion. Subcutaneous fat was irrigated and Bovie used on oozing vessels. The subcutaneous fat was reapproximated with 2 0 plain gut suture in an interrupted fashion. The skin was closed with a subcuticular stitch of 4-0 Monocryl. Steri-Strips and finally a silver dressing was applied above this. Patient tolerated procedure well was taken to recovery area in stable condition. Pathology: specimen obtained, sent to pathology (Placenta, bilateral Fallopian tubes) Surgery Debrief Performed: Yes Surgery Debrief Comment: I have verbally confirmed by desire to sent placenta and bilateral fallopian tubes to pathology Condition: stable Infant total score - 1 minute: 8 total score - 5 minute: 9
[2024-04-13] VITALS (21 sets, daily range): BP systolic 100–109; BP diastolic 64–67; PULSE 67–80; RESP 14–18; TEMP 36.4–36.8; O2SAT 96–99
[2024-04-13] MEDS: KETOROLAC 30 MG/ML inj IVP ×4 (02:49→21:03)
[2024-04-13 03:30] LABS: Hemoglobin* 10.5 gm/dL (12.0-16.0)
[2024-04-13 06:47] LABS: HIV 1/2/P24 Combo Screen* Negative (Negative); Hepatitis B Surface Antigen* Negative (Negative); Hepatitis C Virus Antibody* Negative (Negative)
[2024-04-13] MEDS: ACETAMINOPHEN 500 MG TABLET 1000 MG PO ×2 (07:47→15:59)
[2024-04-13] MEDS: ENOXAPARIN 40 MG/0.4 ML INJ SUBCUT ×2 (07:48→21:04)
[2024-04-13] MEDS: LABETALOL HCL 100 MG TABLET 200 MG PO ×2 (09:07→21:04)
[2024-04-13] MEDS: DOCUSATE SODIUM 100 MG CAPSULE PO (09:07)
--- NOTE | 2024-04-13 12:03 | P.OBPN_ITS ---
OB - PN:Subj Subjective Date Seen: 04/13/24 Patient comments OB post-: pain well controlled, tolerating diet and flatus present infant status: and doing well [place] feeding status: exclusively Narrative: Amy feels well.? Her pain is well controlled with current medications.? She has no new complaints.? Urinary output is adequate and she is voiding without difficulty.? Has a good appetite, is tolerating a general diet, is passing flatus, and has not had a bowel movement.? Has scant amount of rubra lochia.? She is ambulating well.?Amy has a history of superficial thrombosis with her last 2 deliveries. She was started on Lovenox this morning per Hematology recommendation. She has one spot on her left leg on the inner aspect superior to knee that feels tender to the touch, but doesn't think more swollen. Consulted with Dr. Crump who recommended careful watching but no further intervention at this time given she is already on Lovenox. Consider dose change or further investigation if symptoms increase. She is and denies complications or concerns. OB - PN: Obj Exam Physical Exam: Vital signs: Temp Pulse Resp BP Pulse Ox O2 Del Method 98 F 80 16 100/64 97 Room Air 04/13/24 09:15 04/13/24 09:15 04/13/24 11:18 04/13/24 09:15 04/13/24 09:15 04/13/24 09:15 Narrative: GENERAL APPEARANCE:? normal affect, alert, no distress? MOOD:? appropriate? CHEST:? clear to auscultation and percussion? HEART:? regular rate and rhythm? ABDOMEN:? soft, non-tender the uterine fundus is U/2 and is appropriate for the stage of recovery. Incision dressing is clean dry and intact.? EXTREMITIES:? normal and no edema? OB - PN: Obj Data Labs Labs: Laboratory Results - last 24 hr 04/13/24 03:20 Hgb 10.5 L Hep Bs Antigen Negative Hepatitis C Antibody Negative HIV 1&2 Ab/P24 Ag 4thGn Negative OB - PN: A/P Delivery Assessment and Plan (1) Lactating mother: Status: Acute (2) care following delivery: Status: Acute (3) Pre-eclampsia superimposed on chronic hypertension, delivered: Status: Acute (4) Superficial thrombophlebitis: Problem details: x2 Status: Acute Plan day: 1 Plan: routine care Comments: Anticipate discharge home tomorrow or the following day per patient preference.
--- NOTE | 2024-04-13 14:32 | PM.ANPOST ---
Post Anesthesia Note Post Anesthesia Note Patient seen: Inpatient Respiratory Status: adequate Cardiovascular Status: adequate Mental Status: baseline Pain: adequate Temp: baseline Anesthetic awareness: no Complications: none Follow care: none
[2024-04-14] MEDS: KETOROLAC 30 MG/ML inj IVP (03:29)
[2024-04-14 03:35] VITALS: BP 117/77; PULSE 78; O2SAT 98
[2024-04-14 08:22] VITALS: BP 117/76; PULSE 81; RESP 18; TEMP 36.6; O2SAT 99
[2024-04-14] MEDS: LABETALOL HCL 100 MG TABLET 200 MG PO (08:29)
[2024-04-14] MEDS: ENOXAPARIN 40 MG/0.4 ML INJ SUBCUT (08:30)
[2024-04-14] MEDS: DOCUSATE SODIUM 100 MG CAPSULE PO (08:30)
--- NOTE | 2024-04-14 11:13 | P.DS_ITS ---
DS: Providers Provider Date Seen: 04/14/24 Date of admission: 04/11/24 15:54 Primary care physician: Not a Local Provider Admitting Clinician: Haley Mao MD Attending Physician on discharge: William OLGUIN Date of Discharge: 04/14/24 DS: Diagnosis Discharge Diagnosis (1) Superficial thrombophlebitis: Status: Acute Problem details: x2 (2) Pre-eclampsia superimposed on chronic hypertension, delivered: Status: Acute (3) care following delivery: Status: Acute (4) Lactating mother: Status: Acute Exam Narrative: Exam Narrative: GENERAL APPEARANCE:? normal affect, alert, no distress MOOD:? appropriate CHEST:? clear to auscultation HEART:? regular rate and rhythm ABDOMEN:? soft, non-tender the uterine fundus is At Umbilicus, Midline and is appropriate for the stage of recovery. EXTREMITIES:? Moderate varicosities bilaterally noted with mild erythema of right posterior knee and left medial knee. Incision: Silvidene dressing intact with no surrounding erythema, abnormal induration or discharge Const: Vital Signs, click to edit/add: Vital Signs - 24 hr 04/13/24 11:18 04/13/24 12:03 04/13/24 12:03 Temperature 97.8 F Pulse Rate [Pulse Oximeter] 77 Respiratory Rate 16 18 18 Blood Pressure [Ri ght Arm] 102/65 Pulse Oximetry 98 Oxygen Delivery Me thod Room Air 04/13/24 12:18 04/13/24 14:22 04/13/24 15:27 Temperature Pulse Rate [Pulse Oximeter] Respiratory Rate 18 14 16 Blood Pressure [Ri ght Arm] Pulse Oximetry Oxygen Delivery Me thod 04/13/24 16:17 04/13/24 16:33 04/13/24 17:23 Temperature 98.2 F Pulse Rate [Pulse Oximeter] 73 Respiratory Rate 16 16 18 Blood Pressure [Ri ght Arm] 104/67 Pulse Oximetry 97 Oxygen Delivery Me thod Room Air 04/13/24 18:28 04/13/24 20:00 04/14/24 03:35 Temperature 97.9 F Pulse Rate [Pulse Oximeter] 78 78 Respiratory Rate 16 16 Blood Pressure [Ri ght Arm] 109/66 117/77 Pulse Oximetry 99 98 Oxygen Delivery Me thod Room Air Room Air 04/14/24 08:22 Temperature 97.9 F Pulse Rate [Pulse Oximeter] 81 Respiratory Rate 18 Blood Pressure [Ri ght Arm] 117/76 Pulse Oximetry 99 Oxygen Delivery Me thod Room Air OB - DS: Summary Hospital Course Hospital Course: Amy is a 33 y.o. G 5 P4014 who was admitted to [facility] for IOL for chronic hypertension with superimposed preeclampsia.? She had a Primary for arrest of descent with a bilateral tubal ligation. The procedure was uncomplicated. She has a history of superficial thrombophlebitis that seems to be starting again behind her right knee and medial left knee. She was unable to get thigh high compression stockings inpatient, so is wearing knee high stockings. She has been started on lovenox now. The patient feels well.? The pain is well controlled with current medications.?She has not used any oxycodone. She has no new complaints.? She is breast feeding and reports things are going well. the patient has done well.? Vitals have been stable.? She has remained afebrile.? Has a good appetite, is tolerating a general diet.? She is voiding without difficulty.? She is passing gas and has had a bowel movement.? She is ambulating and denies any dizziness.? Has small amount of rubra lochia. She had a tubal ligation for prevention.? ?? Problems: likely superficial thrombophlebitis.? ?? plan:? Discharge home with baby.? Follow up in 3 days, 2 weeks and 6 weeks.? , may see if needed? Continue lovenox for 10 days with 81 mg aspirin once daily, then to increase to twice daily after Lovenox has stopped for 6 weeks. Hgb 10.5. To stop iron supplementation? To continue Labetolol as prescribed with twice daily BP checks. To report neuro symptoms or increasing pressures.? Labs WNL or stable with trending? Follow up in 3-5 days? Call for signs/symptoms of preeclampsia? For pain control of perineum, breast and pelvic pain, take 600 mg Ibuprofen every 6 hours as needed by mouth or 1000 mg acetaminophen (Tylenol) every 6 hours by mouth as needed. You can alternate these so you are taking something every 3 hours as needed. A heating pad can also be used for your abdomen or breasts.?Also consider docusate sodium 100mg by mouth twice daily as needed to keep stools soft. Peripartum Data delivery method: Primary C/S; Labored Laceration description: None Episiotomy description: None Procedures: Procedures Operation Date: 04/12/24 19:30 Actual Procedure Side Surgeon p Section with bilateral salpingectomy Haley Mao MD Procedures: tubal ligation/salpingectomy complications: none [place] Infant Gender: Female Infant Discharge Plan: Home Time Spent with Patient Time attestation: Total time spent providing and/or coordinating discharge services: Time spent: Less than 30 minutes Discharge Plan Discharge Disposition: Home, Self-Care Date of Admission: 04/11/24 15:54 Attending Provider on Discharge: Traci Thomas Primary Care Provider: Provider,Not a Local Condition: Stable Anticipated Discharge Date/Time: 04/14/24 12:00 Discharge Medications: New docusate sodium 100 mg Capsule 100 mg PO DAILY Qty: 60 1RF Continued DHA 200 mg capsule 200 mg PO DAILY aspirin [Adult Low Dose Aspirin] 81 mg tablet,delayed release (DR/EC) 81 mg PO QDAY labetalol 100 mg tablet 200 mg PO BID Qty: 120 1RF enoxaparin [Lovenox] 40 mg/0.4 mL syringe 40 mg subcut Q24H Qty: 4 0RF Hold Instructions: for Discontinued ferrous gluconate 324 mg (37.5 mg iron) tablet 324 mg PO QMWF Qty: 30 1RF Discharge Orders: Discharge Order (Routine); Ordered 04/14/24 Ordered By: Traci Thomas Patient Education: OB [place] [facility], OB /Breast Feeding Additional Instructions: Discharge instructions were reviewed with the patient including signs and symptoms of infection and home going medications Lifting Restrictions: 20 pounds for 6 weeks No not submerge incision under water X 2 weeks? Nothing vaginally for 6 weeks: no tampons or intercourse Do not drive while taking narcotic pain medication(s) Off Work or School for 6 weeks Symptoms to report to doctor: * Bleeding that saturates more than one pad per hour * Passing clots larger than the size of a golf ball * Pain not relieved by prescribed medication * Fever above 100.4 degrees Fahrenheit * A foul vaginal odor * Difficulty in emotions, mood, and functions * Thoughts of hurting yourself and/or * Painful, reddened area in your breast * Any drainage, redness, or tenderness in your IV/epidural site * Severe headache that doesn't improve after taking medications * Changes in vision, including temporary loss of vision, blurred vision, and/or light sensitivity * Upper abdominal pain (usually under ribs on the right side) * Decrease in urination or painful, frequent urinating * Chest pain * Shortness of breath * Tenderness or pain with redness and/swelling in the calf(s) of your leg [facility] for a BP check?04/17/2024 Call with BP greater than or equal to 160/110 2-week visit: incision check, discuss feeding concerns, review control options and screen for anxiety/depression. 6-week visit for an annual exam. consultation services are available to all mothers and babies for the first year after delivery.? To make an appointment, please call [phone]. Continue Lovenox for 10 days . Continue baby aspirin once daily for those 10 days, then increase it to twice daily for 6 weeks . Activity Level: Activity as Tolerated and No strenuous activity Discharge Diet: Regular Follow Up Appointments: Haley Mao MD [Staff Physician] - Forms: SPARQCode Info Instructions
[2024-04-15 09:25] LABS: Rapid Plasma Reagin (RPR) Non Reactive (Non Reactive)
== END 2024-04-14 14:45 | disposition home or self-care (01) | DRG 540 ==
PROVIDERS: Admitting Provider Obstetrics & Gynecology; Visit Provider Obstetrics & Gynecology
PROC: 10D00Z1 Extraction of Products of Conception, Low, Open Approach (ICD-10-PCS; CPT 59514; principal; 2024-04-12 19:15)
DX: O11.4 Pre-existing hypertension with pre-eclampsia, complicating childbirth (principal); O99.02 Anemia complicating childbirth; D64.9 Anemia, unspecified; Z30.2 Encounter for sterilization; O62.0 Primary inadequate contractions; O87.0 Superficial thrombophlebitis in the puerperium; I80.03 Phlebitis and thrombophlebitis of superficial vessels of lower extremities, bilateral; I83.11 Varicose veins of right lower extremity with inflammation; O69.81X0 Labor and delivery complicated by cord around neck, without compression, not applicable or unspecified; G89.18 Other acute postprocedural pain; O76 Abnormality in fetal heart rate and rhythm complicating labor and delivery; Z37.0 Single live birth; Z3A.36 36 weeks gestation of pregnancy; Z86.718 Personal history of other venous thrombosis and embolism; Z79.01 Long term (current) use of anticoagulants
CPT/HCPCS: 01967; 01968; 36415; 59200; 64488; 76816; 76819; 76942; 82565; 82570; 84156; 84450; 84460; 84520; 85018; 85025; 85027; 86592; 86703; 86803; 86850; 86900; 86901; 87340; 88302; 88307; 99140; A9270; C1726; C9290; J0456; J0665; J0690; J1100; J1650; J1885; J2250; J2270; J2274; J2371; J2405; J2590; J2795; J3010; J3490; J7050; J7120

== ENCOUNTER 2024-04-17 15:02 | Outpatient (CLI) | payer BC, SELFPAY ==
--- NOTE | 2024-04-17 14:45 | CRLHL7_ITS ---
For Patients: As a result of the Century Cures Act, medical imaging exams and procedure reports are released immediately into your electronic medical record. You may view this report before your referring provider. If you have questions, please contact your health care provider. Indication: bilateral lower extremity redness and pain. Technique: Real-time longitudinal and transverse sonographic grayscale imaging with and without compression, as well as color and duplex Doppler imaging before and after augmentation, was obtained of the deep system of the bilateral lower extremities, including the common femoral, femoral, popliteal, posterior tibial, and peroneal veins. Comparison: 12/13/2023 Findings: Right lower extremity: Common femoral vein: No evidence of thrombus. Femoral vein: No evidence of thrombus. Popliteal vein: No evidence of thrombus. Calf veins: Patent. Mid medial thigh superficial thrombophlebitis. Left lower extremity: Common femoral vein: No evidence of thrombus. Femoral vein: No evidence of thrombus. Popliteal vein: No evidence of thrombus. Calf veins: Patent. Anterior medial knee superficial thrombophlebitis. Impression: 1. No ultrasound evidence of deep venous thrombosis. 2. Bilateral superficial thrombophlebitis/superficial venous thrombosis as described above. Dictated by Thai Cottrell MD @ 04/17/2024 4:23:48 PM (Electronically Signed)
== END 2024-04-17 15:03 | disposition home or self-care (01) ==
LOC: US 15:03
PROVIDERS: Visit Provider Obstetrics & Gynecology
DX: I80.9 Phlebitis and thrombophlebitis of unspecified site (principal)
CPT/HCPCS: 93970

== ENCOUNTER 2024-04-21 16:37 | Inpatient (IN) | payer BC, SELFPAY ==
[2024-04-21] VITALS (29 sets, daily range): BP systolic 115–154; BP diastolic 69–91; PULSE 50–83; RESP 12–18; TEMP 36.6–36.7; O2SAT 93–99; BMI 40.0
--- NOTE | 2024-04-21 17:18 | ED.GENADULT ---
HPI - General Adult General Date Seen: 04/21/24 Chief complaint: Hypertension Stated complaint: 9 days PP, poss pre-eclampsia Time Seen by Provider: 04/21/24 17:18 History of Present Illness HPI narrative: 33 yo F , who has a history of preeclampsia with her 2nd in 3rd . Her most recent was complicated by preeclampsia with severe features. She developed proteinuria and hypertension and was delivered by at 37 weeks, 9 days ago. Per OB notes she was started on labetalol for hypertension back in October had her dose was increased to 200 mg b.i.d. in the end of February. She also had superficial thrombophlebitis affecting both of her legs so was on Lovenox prevent development of DVT. She was delivered at 37 weeks because of her elevated blood pressure and preeclampsia symptoms. She is now 9 days . She still having a small amount of vaginal bleeding but no purulent discharge. She has a small amount of right lower quadrant abdominal pain but overall that is fairly minor. She had been doing pretty well post for the 1st 7 days. Yesterday she began to all but fairly severe diffuse headache. With this no other new symptoms. No nausea or vomiting. No blurry vision or flashing lights in her eyes. No focal numbness or tingling or weakness in her arms or legs. No new abdominal pain. No fever. No neck stiffness. She has not had any head injury or fall. She also notes that for the past couple of days she has developed a little bit worsening bilateral lower extremity edema in both of her feet. She continues take the Lovenox shots to prevent extension of the superficial thrombophlebitis affecting both legs. Related Data Home Medications ?Medication ?Instructions ?Recorded ?Confirmed docosahexaenoic acid 200 mg 200 mg PO DAILY 10/18/23 04/17/24 capsule ( DHA) aspirin 81 mg tablet,delayed 81 mg PO QDAY 11/15/23 04/17/24 release (Adult Low Dose Aspirin) Previous Rx's ?Medication ?Instructions ?Recorded labetalol 100 mg tablet 200 mg (2 x 100 mg) PO BID #120 03/13/24 tabs docusate sodium 100 mg capsule 100 mg PO DAILY #60 caps 04/14/24 enoxaparin 40 mg/0.4 mL 40 mg (0.4 mL) subcut BID #20 mL 04/17/24 subcutaneous syringe (Lovenox) Allergies Allergy/AdvReac Type Severity Reaction Status Date / Time No Known Drug Allergies Allergy Verified 04/17/24 14:12 [facility] Medical History (Updated 04/21/24 @ 20:06 by Katelyn Goins MD) 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 disorders (ICD-10) Primary hypertension ?I10 - Essential (primary) hypertension (ICD-10) Macrosomia ?P08.0 - Exceptionally large baby (ICD-10) Anxiety ?F41.9 - Anxiety disorder, unspecified (ICD-10) Endometritis ?N71.9 - Inflammatory disease of uterus, unspecified (ICD-10) Superficial thrombophlebitis ?I80.9 - Phlebitis and thrombophlebitis of unspecified site (ICD-10) Ovarian cyst ?N83.209 - Unspecified ovarian cyst, unspecified side (ICD-10) Abnormal uterine bleeding (AUB) ?N93.9 - Abnormal uterine and vaginal bleeding, unspecified (ICD-10) Vaginal delivery ?O80 - Encounter for full-term uncomplicated delivery (ICD-10) Severe pre-eclampsia affecting puerperium ?O14.15 - Severe pre-eclampsia, complicating the puerperium (ICD-10) Surgical History (Updated 04/17/24 @ 16:11 by Negra Reed MD) Status post primary low transverse section (04/12/24) ?Z98.891 - History of uterine scar from previous surgery (ICD-10) Status post hysteroscopic myomectomy ?Z98.890 - Other specified postprocedural states (ICD-10) Social History 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 What is your current living situation?: I presently have a place to live Problems where you live: no known problems In the past 12 months, utilities in danger of being shut off: no In past 12 months, lack of transportation kept you from medical appts, meetings, work, or getting things needed for daily living: no In the past 12 mos, have been you worried that your food would run out before you had money to buy more?: never true In the past 12 mos, the food you bought just didn't last and you didn't have money to buy more?: never true Do you want help finding or keeping work or a job: I do not need or want help Physical activity type: none Smoking Status: Never smoker Do you use any of these nicotine containing products: None Second hand tobacco smoke exposure: No How often do you have a drink containing alcohol: never How often do you have six or more drinks on one occasion: Never AUDIT-C Alcohol total score: 0 Non-prescribed substance use: denies use Caffeine: Yes (occasionally) How often does anyone, including family, friends and others, physically hurt you: never How often does anyone, including family, friends and others, insult or talk down to you: never How often does anyone, including family, friends and others, threaten you with harm: never How often does anyone, including family, friends and others, scream or curse at you: never Little interest or pleasure in doing things: not at all Feeling down, depressed, or hopeless: not at all Are you currently sexually active: Yes Are you using contraception or practicing any form of control: Yes service: No Exam Narrative: Exam Narrative: Constitutional: Appears well-developed and well-nourished. Alert. Conversant. Non toxic. HENT: Head: Atraumatic. Nose: Nose normal. Mouth/Throat: Oral mucosa is clear and moist. no trismus. Pharynx normal. Eyes: Conjunctivae normal. EOM normal. Pupils equal, round, and reactive to light. No scleral icterus. Neck: Normal range of motion. Neck supple. No tracheal deviation present. No JVD Cardiovascular: Normal rate, regular rhythm. No gallop. No friction rub. No murmur heard. Symmetric radial artery pulses Pulmonary/Chest: Effort normal. No stridor. No respiratory distress. No wheezes. No rales. No rhonchi . No tenderness. Abdominal: Soft. Bowel sounds normal. No distension. No mass. Mild lower abdominal tenderness around scar. Musculoskeletal: RUE: Normal range of motion. No tenderness. No deformity LUE: Normal range of motion. No tenderness. No deformity RLE: Normal range of motion. No edema. No tenderness. No deformity LLE: Normal range of motion. No edema. No tenderness. No deformity Neurological: Alert and oriented to person, place, and time. Normal strength. CN II-VII intact. No sensory deficit. GCS eye subscore is 4. GCS verbal subscore is 5. GCS motor subscore is 6. Normal coordination no focal deficits. I inadvertently did not check DTRs for hyper reflexia. Skin: Skin is warm and dry. No rash noted. No pallor. Normal capillary refill. Psychiatric: Normal mood. Normal affect. Very polite. Const: Vital Signs, click to edit/add: Vital Signs - 24 hr 04/21/24 16:43 04/21/24 17:02 04/21/24 18:02 Temperature 98.1 F Pulse Rate 53 L Pulse Rate [Pulse Oximeter] 65 Respiratory Rate 18 Blood Pressure 148/85 H Blood Pressure [Ri ght Upper Arm] 151/91 H 152/91 H Pulse Oximetry 97 98 Oxygen Delivery Me thod Room Air 04/21/24 18:03 04/21/24 18:15 04/21/24 18:30 Temperature Pulse Rate 50 L 55 L 65 Pulse Rate [Pulse Oximeter] Respiratory Rate Blood Pressure Blood Pressure [Ri ght Upper Arm] Pulse Oximetry 97 98 98 Oxygen Delivery Me thod 04/21/24 18:45 04/21/24 18:54 04/21/24 19:00 Temperature Pulse Rate 66 61 58 L Pulse Rate [Pulse Oximeter] Respiratory Rate Blood Pressure 137/83 Blood Pressure [Ri ght Upper Arm] Pulse Oximetry 97 98 99 Oxygen Delivery Me thod 04/21/24 19:25 04/21/24 19:30 04/21/24 19:45 Temperature Pulse Rate 58 L 61 Pulse Rate [Pulse Oximeter] Respiratory Rate Blood Pressure 142/84 H Blood Pressure [Ri ght Upper Arm] Pulse Oximetry 99 98 Oxygen Delivery Me thod 04/21/24 19:48 Temperature Pulse Rate Pulse Rate [Pulse Oximeter] Respiratory Rate Blood Pressure 144/86 H Blood Pressure [Ri ght Upper Arm] Pulse Oximetry Oxygen Delivery Me thod Course Course ED Course: Recheck-blood pressure down slightly to 144/80. Back from CT. Reevaluation(s) Reevaluation #1: Recheck-headache improved slightly after Toradol, Reglan, Benadryl, IV fluids. Feeling slightly drowsy after 12.5 mg of Benadryl. However still alert and conversant. Headache improved but not resolved. Reevaluation #2: Discussed with OB, Dr. Pearce. She would recommend admission for observation and magnesium given the headache associated with the peripheral edema and potential evolving preeclampsia. Vital Signs Vital signs: Initial Vital Signs Temperature 98.1 F 04/21/24 16:43 Temperature Source Temporal Artery Scan 04/21/24 16:43 Pulse Rate 65 04/21/24 16:43 Pulse Rhythm Regular 04/21/24 16:43 Respiratory Rate 18 04/21/24 16:43 Blood Pressure 151/91 H 04/21/24 16:43 Blood Pressure Mean 111 H 04/21/24 16:43 Blood Pressure Position Sitting 04/21/24 16:43 Pulse Oximetry 97 04/21/24 16:43 Oxygen Delivery Method Room Air 04/21/24 16:43 Vital Signs Temperature 98.1 F 04/21/24 16:43 Pulse Rate 65 04/21/24 16:43 Respiratory Rate 18 04/21/24 16:43 Blood Pressure 151/91 H 04/21/24 16:43 Pulse Oximetry 97 04/21/24 16:43 Oxygen Delivery Method Room Air 04/21/24 16:43 Temperature 98.1 F 04/21/24 16:43 Pulse Rate 57 L 04/21/24 20:21 Respiratory Rate 18 04/21/24 20:21 Blood Pressure 144/80 H 04/21/24 20:21 Pulse Oximetry 98 04/21/24 20:21 Oxygen Delivery Method Room Air 04/21/24 20:21 Medications Administered Medications: Discontinued Medications Generic Name Dose Route Start Last Admin Trade Name Freq PRN Reason Stop Dose Admin Diphenhydramine HCl 12.5 mg 04/21/24 18:40 04/21/24 18:55 Diphenhydramine 50 Mg/Ml Inj IVP 04/21/24 18:41 12.5 mg ONCE ONE Administration Sodium Chloride 500 mls @ 500 mls/hr 04/21/24 18:40 04/21/24 18:55 0.9 % Sodium Chloride 500 Ml IV 04/21/24 19:39 500 mls/hr .Q1H ONE Administration Ketorolac Tromethamine 15 mg 04/21/24 18:40 04/21/24 18:55 Ketorolac 15 Mg/Ml Inj IVP 04/21/24 18:41 15 mg ONCE ONE Administration Labetalol HCl 200 mg 04/21/24 19:32 04/21/24 19:59 Labetalol Hcl 100 Mg Tablet PO 04/21/24 19:33 200 mg ONCE ONE Administration Labetalol HCl 100 mg 04/21/24 19:41 04/21/24 19:53 Labetalol Hcl 100 Mg Tablet PO 04/21/24 19:42 Not Given ONCE ONE Metoclopramide HCl 10 mg 04/21/24 18:40 04/21/24 18:56 Metoclopramide Hcl 5 Mg/Ml Inj IVP 04/21/24 18:41 10 mg ONCE ONE Administration Medical Decision Making MDM Narrative Medical decision making narrative: Very pleasant 33-year-old female who is , now 9 days . She had been doing well for about the 1st week after her delivery but now has developing bilateral lower extremity peripheral edema and new headache that began yesterday. She is already on labetalol for preeclampsia and hypertension related to her . She was sent into the ER today by the OB clinic for evaluation for possible evolving preeclampsia. In terms of her headache she has no recent head trauma but since she is on Lovenox (to prevent extension of superficial thrombophlebitis in her legs) we did do a head CT to look for intracranial bleed. Head CT is normal. No bleed. Also no evidence for cerebral edema or other mass or abnormality on the CT imaging.She does not have any neck pain to suggest cervical artery dissection. No neck pain or stiffness or fever to suggest meningitis. No positional component to her headache to suggest dural puncture headache. She does not have any visual symptoms with the headache or other focal neurologic deficits to suggest stroke or migraine. No clear evidence for MN ESS at this time. She is currently on Lovenox, making the likelihood for dural sinus thrombosis much less likely. Concern here is that the headache might be a symptom of evolving preeclampsia. Blood pressure is somewhat 151/91 at triage. It came down slightly to about 144-80 and then 142/84. Than 138/84. She received her evening dose of labetalol. We treated her headache with headache combination with some improvement but not resolution. Laboratory workup shows no signs of acute renal failure. LFTs and platelet count are normal. Hemoglobin is mildly anemic likely due to blood loss. She is not having any heavy vaginal bleeding or bleeding from her incision to raise concern for active bleeding. I think her anemia is stable from . Dip urinalysis is negative for proteinuria. Also no sign of UTI. She does have hematuria which is likely due to her vaginal bleeding. No flank pain to suggest kidney stone. In consultation with OB, disposition is a difficult decision. On the 1 hand her laboratory workup is fairly reassuring. On the other hand she has concerning symptoms with new, significant headache as well as new bilateral lower extremity peripheral edema and she also has a history of preeclampsia with 2 previous pregnancies. Ultimately Ob would recommend that we admit to the OB floor for magnesium and observation. Discussed with the patient. Although she is a reluctant she is willing to be admitted. agrees. Lab Data Labs: Lab Results 04/21/24 04/21/24 Range/Units 17:17 17:32 WBC 6.01 (4.50-11.00) K/uL RBC 3.50 L (4.00-5.20) m/uL Hgb 10.0 L (12.0-16.0) gm/dL Hct 30.8 L (33.0-51.0) % MCV 88 (80-100) fL MCH 29 (26-34) pg MCHC 33 (32-36) gm/dL RDW Coeff of Kulwant 15.5 (11.5-15.5) % Plt Count 302 (140-440) K/uL Neut % (Auto) 70.2 (42.0-72.0) % Lymph % (Auto) 20.6 (20-44) % [place] % (Auto) 6.7 (0.0-11.0) % Eos % (Auto) 1.3 (0.0-7.0) % Baso % (Auto) 0.2 (0.0-3.0) % Neut # (Auto) 4.22 (1.7-7.0) K/uL Lymph # (Auto) 1.24 (0.90-2.90) K/uL [place] # (Auto) 0.40 (0.00-0.90) K/UL Eos # (Auto) 0.08 (0.00-0.50) K/uL Baso # (Auto) 0.01 (0.00-0.30) K/uL Abs Immat Gran (auto) 0.06 (0.00-0.30) K/uL Imm/Tot Granulo (auto) 1.0 % Sodium 140 (135-149) mmol/L Potassium 4.1 (3.6-5.1) mmol/L Chloride 109 (96-114) mmol/L Carbon Dioxide 25 (20-32) mmol/L Anion Gap 6 L (7-15) mEq/L BUN 12 (5-24) mg/dL Creatinine 0.7 (0.5-1.5) mg/dL Estimated Creat Clear 106.01 Estimated GFR 116 ml/min Glucose 82 (60-115) mg/dL Calcium 9.2 (8.4-10.6) mg/dL Magnesium 2.4 (1.5-2.6) mg/dL Total Bilirubin 1.2 (0.1-1.5) mg/dL AST 25 (12-35) U/L ALT 19 (4-35) U/L Alkaline Phosphatase 86 (40-150) U/L Troponin I < 0.01 L (0.01-0.04) ng/mL Total Protein 6.5 (6.0-8.3) g/dL Albumin 4.0 (3.3-5.0) g/dL Urine Color Yellow (Yellow) Urine Appearance Clear (Clear) Urine pH 6.5 (5.0-8.5) Ur Specific [place] 1.015 (1.000-1.030) Urine Protein Negative (Negative) Urine Glucose (UA) Negative (Negative) Urine Ketones Negative (Negative) Urine Blood 3+ A (Negative) Urine Nitrite Negative (Negative) Urine Bilirubin Negative (Negative) Urine Urobilinogen 0.2 (0.2-1.0) Ur Leukocyte Esterase Trace A (Negative) Urine RBC 10-25 A (0-2) Urine WBC 2-5 (0-5) Ur Squamous Epith Cells None (None-Few) Urine Bacteria None (None) ECG Data Attestation: I personally reviewed and interpreted this ECG as follows: Interpretation: Sinus bradycardia Rate: 54 MN: 168 QRS axis: Normal ST segment/T wave: No ST segment elevation or depression. Nonspecific T-wave flattening V1, V2, aVL QTc: 386 Discharge Plan Discharge Clinical Impression: Headache, Hypertension Patient Disposition: Admitted As Observation
--- NOTE | 2024-04-21 17:22 | CRLHL7_ITS ---
For Patients: As a result of the Century Cures Act, medical imaging exams and procedure reports are released immediately into your electronic medical record. You may view this report before your referring provider. If you have questions, please contact your health care provider. INDICATION: Headache, on Lovenox, 9 days . TECHNIQUE: CT head without contrast. COMPARISON: None. FINDINGS: CSF spaces: Within normal limits for age. Brain parenchyma and extra-axial spaces: The qureshi-white differentiation is normal. No sign of mass, hemorrhage, or midline shift. No extra-axial fluid collection. Skull base and calvarium: Partial opacification of the right maxillary sinus. Bilateral mastoid air cell effusions. The visualized orbits are grossly unremarkable. No skull fractures. IMPRESSION: 1. No acute intracranial abnormality. 2. Bilateral mastoid effusions. Please note that all CT scans at this facility use dose modulation, iterative reconstruction, and/or weight-based dosing when appropriate to reduce radiation dose to as low as reasonably achievable. Dictated by Lex Robles MD @ 04/21/2024 6:41:28 PM (Electronically Signed)
[2024-04-21 17:36] LABS: Basophils Absolute Auto 0.01 K/uL (0.00-0.30); Basophils Percent Auto 0.2 % (0.0-3.0); Eosinophils Absolute Auto 0.08 K/uL (0.00-0.50); Eosinophils Percent Auto 1.3 % (0.0-7.0); Hematocrit 30.8 % (33.0-51.0); Immature Granulocytes Abs Auto 0.06 K/uL (0.00-0.30); Lymphocytes Absolute Auto 1.24 K/uL (0.90-2.90); Lymphocytes Percent Auto 20.6 % (20-44); Mean Corpuscular HGB Conc 33 gm/dL (32-36); Mean Corpuscular Hemoglobin 29 pg (26-34); Mean Corpuscular Volume 88 fL (80-100); Monocytes Percent Auto 6.7 % (0.0-11.0); Neutrophils Absolute Auto 4.22 K/uL (1.7-7.0); Neutrophils Percent Auto 70.2 % (42.0-72.0); Platelet Count* 302 K/uL (140-440); RDW Coefficient of Variation % 15.5 % (11.5-15.5); White Blood Count* 6.01 K/uL (4.50-11.00)
[2024-04-21 17:42] LABS: Appearance Urine Clear (Clear); Bilirubin Urine Negative (Negative); Blood Urine 3+ (Negative); Color Urine Yellow (Yellow); Glucose Urine Negative (Negative); Ketones Urine Negative (Negative); Leukocyte Esterase Urine Trace (Negative); Nitrite Urine Negative (Negative); Protein Urine Negative (Negative); Specific Gravity Urine 1.015 (1.000-1.030); Urobilinogen Urine 0.2 (0.2-1.0); pH Urine 6.5 (5.0-8.5)
[2024-04-21 17:43] LABS: Slide Review Reflex No
[2024-04-21 18:00] LABS: Chloride* 109 mmol/L (96-114); Sodium* 140 mmol/L (135-149)
[2024-04-21 18:01] LABS: Potassium* 4.1 mmol/L (3.6-5.1)
[2024-04-21 18:03] LABS: Alanine Aminotransferase* 19 U/L (4-35); Alkaline Phosphatase* 86 U/L (40-150); Anion Gap 6 mEq/L (7-15); Aspartate Amino Transferase* 25 U/L (12-35); Bilirubin Total* 1.2 mg/dL (0.1-1.5); Blood Urea Nitrogen* 12 mg/dL (5-24); Carbon Dioxide* 25 mmol/L (20-32); Creatinine* 0.7 mg/dL (0.5-1.5); Est. Creatinine Clearance* 106.01; Estimated Glomerular Filt Rate 116 ml/min; Glucose* 82 mg/dL (60-115); Total Protein* 6.5 g/dL (6.0-8.3)
[2024-04-21 18:04] LABS: Calcium* 9.2 mg/dL (8.4-10.6); Magnesium* 2.4 mg/dL (1.5-2.6)
[2024-04-21 18:18] LABS: Troponin I* < 0.01 ng/mL (0.01-0.04)
--- OUTSIDE RECORDS SUMMARY | 2024-04-21 18:46 | XMS_ITS | Clinical Summary ---
Author Organization [employer] [facility] Address [place], [place] [address] Care Team Providers Care Renewal Specialist Name Role Phone Katelyn Goins MD Primary [...] Active Active Problems No known active problems Encounters Date Type Department Care Team Description 04/13/2024 Lab Requisition [facility] [phone] Haley Mao MD 04/13/2024 Lab Requisition [facility] [phone] Haley Mao MD from Last 3 Months Immunizations Name Administration Dates Next Due Hepatitis [...] Comments Blood Pressure 145/90 07/15/2020 2:30 PM SALON RECEPTIONIST Pulse 77 07/15/2020 2:30 PM SALON RECEPTIONIST Temperature 36.4 ??C (97.6 ??F) 07/15/2020 2:30 PM CS T Respiratory Rate 16 07/15/2020 2:30 PM SALON RECEPTIONIST Oxygen Saturation 100% 07/15/2020 2:30 PM SALON RECEPTIONIST Inhaled Oxygen Concentration - - Weight 99.8 kg (220 lb) 07/15/2020 2:30 PM SALON RECEPTIONIST Height 170.2 cm (5' 7) 07/15/2020 2:30 PM SALON RECEPTIONIST Body Mass Index 34.46 07/15/2020 2:30 PM SALON RECEPTIONIST Plan of Treatment Health Maintenance Due Date Last Done Comments Tdap 2000 Depression screening for age 12+ 2001 HIV for age 15-65 2004 BMI (ht and wt on same day) for age 18+ 2007 Hepatitis C screening for ag e 18-79 2007 Tetanus booster 08/08/2014 08/08/2004 Pap test for age 21-65 08/28/2022 0, 08/28/2019, 08/30/2010 COVID-19 vaccine series ( season) 2024 Influenza for age 9-49 03/22/2024 Pneumococcal series for age 6-64 Aged Out No longer eligible b ased on patient's age to complete this topic Procedures Procedure Name Priority Date/Time Associated Diagnosis Comments LAB TRACKING EVENT Routine 04/13/2024 12 :00 PM CDT PATH TISSUE EXAM Routine 04/12/2024 8:00 PM CDT LAB TRACKING EVENT Routine 04/12/2024 12 :00 PM CDT INDUSTRIAL ECOLOGIST THIN PREP PAP SCREEN IMAGED Routine 08/28/2019 11:08 AM SALON RECEPTIONIST from Last 3 Months or Most Recently Relevant to Health Maintenance Results * LAB TRACKING EVENT (04/13/2024 12:00 PM CDT) Only the most recent of2 resultswithin the time period is included. Other (Other) Client Collect / Unknown 04/13/2024 12:00 PM CDT 04/13/2024 1:41 PM CDT Haley Mao MD LAB BILL ONLY [facility] [address] [place] [address], * PATH TISSUE EXAM (04/12/2024 8:00 PM CDT) Case Report Pathology Report ?Case: [id number] ? Authorizing Provider: ??Haley Mao MD ?? Collected: ? 04/12/2024 2006 ? Ordering Location: ? [facility] ?Received: ?04/13/2024 1501 ? Pathologist: ? Roro Pickard MD ? Specimens: ?? A) - Bilateral Fallopian Tubes ? B) - Placenta ? 04/15/2024 1:41 PM CDT [facility] Final Diagnosis A) BILATERAL FALLOPIAN TUBES, BILATERAL SALPINGECTOMY: 1. Bilateral fimbriated fallopian tubes with benign paratubal cyst(s) 2. Negative for malignancy B) PLACENTA, DELIVERY: 1. Third trimester fritz placenta with the following characteristics: ? a. Weight: 432 grams (35 week 10-90th percentile weight range, 352 - 516 grams) ? b. Membranes/ surface: ?Circumvallate insertion ?Mild acute chorioamnionitis (grade 1, stage 1) ? c. Umbilical cord: ?Three vessel cord ?Negative for funisitis ? d. Disc/Villi: ?Chorionic villi consistent with gestational age ?Negative for villitis ?Placental disc without infarcts ? e. Decidua/basal plate: ?Decidual arteriopathy 04/15/2024 1:41 PM T [facility] Clinical Information Indications for Placental Examination by Pathology Maternal indications: ??Pre-eclampsia Infectious specimen (e.g. maternal HIV or HCV): No Cytogenetic studies: Not requested Clinical information: Date of delivery: Time of delivery: 1957 Type of delivery: Live born:Yes Gestational age: 35/5 weeks weight of infant(s): 2750 grams Sex of (s): ??Female Pertinent Maternal History: Maternal parity: G 5 P 3 Diabetes: No Hypertension: No Eclampsia: No Smoking: No Patient desires infertility. 04/15/2024 1:41 PM CDT [facility] Gross Description A) Received in formalin, labeled with the patient's name and bilateral fallopian tubes, are two segments of fallopian tube averaging 9.5 cm long, and 1.3 cm diameter. Fimbriated ends are present. ??There are 2 possible smooth lined cysts averaging 0.1 cm identified in one of the fallopian tubes. ??No other lesions are identified. ??Drag Out Worker sections including the entire fimbriated ends are submitted in 4 cassette(s). TLF 04/13/2024 ? B) Received fresh labeled with the patient's name and placenta, is a 432 gram, 15 x 15 x 2.2 cm fritz placenta. The surface is blue-qureshi with normal vasculature. The 26 cm long, 0.9 cm diameter trivascular umbilical cord is paracentrally inserted 3.5 cm from the nearest edge of the placental plate. The extraplacental membranes are purple-varela submitted and inserted circumvallately. ??A thin rim of fibrous tissue is present around the periphery of the placental disc on the surface. The maternal surface is red-brown smooth and displays focal disruption. ??The maternal surface completeness cannot be determined. ??Sectioning reveals spongy dark red parenchyma with no discrete fibrous lesions appreciated grossly. Drag Out Worker sections are submitted: 1. ?? membranes and insertion 2. ??Umbilical cord 3-5. ??Full-thickness central placenta Time and date in formalin: 1955 on 04/13/2024 JPW 04/13/2024 04/15/2024 1:41 PM CDT [facility] [employer] [facility] Microscopic Description The final diagnosis is based on microscopic examination of appropriate sections of all specimens. 04/15/2024 1:41 PM CDT [facility] [employer] [facility] Additional Information Interpreted at [facility] [employer] [facility], Central Laboratory - [address], [place] [address] 04/15/2024 1:41 PM CDT [facility] [employer] [facility] Other SPECIMEN FROM PLACENTA / Unknown 04/12/2024 8:06 PM CDT 04/13/2024 3:01 PM CDT Specimen (specimen) SPECIMEN FROM PLACENTA / Unknown 04/12/2024 8:00 PM CDT 04/13/2024 3:23 PM CDT Haley Mao MD PATHOLOGY/CYTOLOG Y [facility] [address] [place] [address], * INDUSTRIAL ECOLOGIST THIN PREP PAP SCREEN IMAGED (08/28/2019 11:08 AM SALON RECEPTIONIST) Case Report Gynecologic Cytology Report ? Case: [id number] ? Authorizing Provider: ??Katelyn Goins ??Collected: ? 08/28/2019 1108 ? M, MD ? Ordering Location: ? [facility] ?Received: ?08/28/2019 1623 ? First Screen: ?Rosemary Ferguson ? Specimen: ?INDUSTRIAL ECOLOGIST ThinPrep Vial Screening, Cervical/Vaginal ? 09/08/2019 10:14 AM SALON RECEPTIONIST [facility] INTERPRETATION/ RESULT NEGATIVE FOR INTRAEPITHELIAL LESION OR MALIGNANCY (NIL) (none) 09/08/2019 10:14 AM [facility] IMEN ADEQUACY Satisfactory for evaluation Endocervical component present 09/08/2019 10:14 AM [facility] HPV REQUEST HPV and PAP 09/08/2019 10:14 AM [facility] Last Pap Date 09/27/2014 09/08/2019 10:14 AM [facility] Last Pap Result NIL 0 10:14 AM [facility] Menstrual Status 09/08/2019 10:14 AM [facility] Additional Information 09/08/2019 10:14 AM [facility] Comment: Interpreted at [facility] [employer] [facility] - [address], [place] [address] Automated Review Successful 09/08/2019 10:14 AM [facility] Comment:Specimen processed s uccessfully by automated hide and skin fleshing machine operator device, ThinPrep Imaging System, [employer] ANCILLARY TESTING INDUSTRIAL ECOLOGIST HPV Ordered, Please see separate report 09/08/2019 10:14 AM [facility] Note The pap test is a screening technique, not a diagnostic procedure. It is used primarily to screen for squamous cancers and precursor lesions. Published studies have shown that it is subject to both false negative and false positive results. The pap test should not be used as the sole means to diagnose or exclude pre-malignant and malignant lesions. 09/08/2019 10:14 AM [facility] Other (Cervical/Vagina l) 08/28/2019 11:08 AM SALON RECEPTIONIST 08/28/2019 4:23 PM SALON RECEPTIONIST Katelyn Goins MD PATHOLOGY/ CYTOLOGY [facility] [address] [place] [address], [place] from Last 3 Months or Most Recently Relevant to Health Maintenance Care Teams Renewal Specialist Relationship Specialty Start Date End Date Katelyn Goins MD [address] [place] [address] PCP - General Obstetrics and Gynecology 07/15/20
[2024-04-21] MEDS: 0.9 % SODIUM CHLORIDE 500 ML 500 ML IV (18:55)
[2024-04-21] MEDS: diphenhydrAMINE 50 MG/ML inj 12.5 MG IVP (18:55)
[2024-04-21] MEDS: KETOROLAC 15 MG/ML inj IVP (18:55)
[2024-04-21] MEDS: METOCLOPRAMIDE HCL 5 MG/ML INJ 10 MG IVP (18:56)
--- NOTE | 2024-04-21 19:51 | W.PM.LDBA ---
Subjective History of Present Illness Time Seen by Provider: 21:28 Date Seen: 04/21/24 Narrative: Patient is being re admitted to Labor and Delivery for magnesium sulfate infusion for seizure prophylaxis. She is a 33 year old , who is on POD #9 after primary low transverse section and bilateral salpingectomy. Patient underwent IOL at 37 weeks due to CHTN with superimposed preeclampsia w/o severe features. Patient had a delivery due to arrest of descent. Surgery and post op uncomplicated. She was discharged home on POD #2. Patient had been utilizing labetalol 200mg BID with good BP control. Yesterday, started to notice increased BPs, swelling of the lower extremities and headache. Patient states that headache did not improve with Tylenol or Ibuprofen. Patient called clinic and was instructed to visit ED. At ED patient was found to have mild range elevated blood pressure. HELLP labs normal. ED physician completed head CT scan that was found normal. Headache treated with Reglan, Toradol, Benadryl and patient states that it did improve but did not resolve headache. Patient with significant history of preeclampsia and eclampsia. Recommendation was given to re admit for magnesium sulfate therapy and close monitoring. Specific Issues/Plans Spouse Chase. Children: Richy, Jolene, Glen. Baby: Cathy Devries H&P done 04/03/[address] Reed. # Chronic hypertension with superimposed pre-eclampsia without severe features (P/C ratio 0.32 on 03/20/24) History of gestational htn in 1st , PP HTN after 2nd , and PP severe pre E after 3rd . Was readmitted during PP period after 2nd and 3rd deliveries. Elevated BP in clinic at her first visit. Did not initiate antihypertensive. Continue to monitor. 11/14/3033: Initiated labetalol 100mg PO BID 03/13/24: Increased labetolol to 200 mg BID, normal preE labs Baseline pre E labs: normal. P/C: 0.00 P/C ratio 0.10 Total protein 24 hour: 190 Daily low dose aspirin starting at 12 weeks. Weekly BPP and/or NST starting at 32 weeks Growth ultrasound Q4 weeks starting at 28 weeks. Delivery at 37 weeks recommended, sooner if severe features develop # BMI 40.0 hgb A1c: 4.8% Rec. low dose aspirin at 12 weeks. Nutrition referral placed Recommend Anesthesia referral Level 2 : referral placed on 11/15/2023. # Anemia 32 week hgb 10.3 Ferrous sulfate QOD # Subchorionic hemorrhage 2.7 x 3.2 x 0.7 cm # Will need pap smear # History of macrosomia (largest baby - 9lb 7oz). Consider growth in 3rd trimester. # Varicose veins. Encouraged compression stockings. # 12/13/23: RLE swelling along with red, tender area on leung. Doppler: Negative for acute DVT in the right lower extremity. Focal subcutaneous edema in the right distal calf. # Contraception: Wants permanent sterilization: bilateral salpingectomy has private insurance so no federal forms signed. US: - Level II US on 12/17/23: EFW 28th percentile, AC 41st percentile. Placenta is anterior/fundal, no previa, greater than 2 cm from internal os. Three-vessel cord. MVP 4.6 cm. Cervical length 4 cm. No anomalies commonly detected by ultrasound were identified. However, multiple suboptimal views. Recommended RUBEN be changed to 05/03/2024 as pateint was on COCP at conception. Repeat ultrasound in 4 weeks to re-evaluate anatomy. - Normal anatomy. EFW 51st percentile, AC at the 42nd percentile. MVP 6.4 cm. Cervical length 3.94 cm. - 03/13: EFW 61%ile, MVP 6.1cm. /8 BPP. - 03/27/2024: Vertex, BPP 8/8. SDP 7.3 cm - 04/10: Cephalic lie, SDP 5.2 cm, EFW 2921 g = 45%, AC 73%, BPD 57%, HC 32%, FL 5%. Flu: recommended. Declined. Covid: recommended. Declined. Tdap: 02/28/2024. OB - Problem Based A/P Additional Plan (1) Pre-eclampsia superimposed on chronic hypertension, delivered: Start date: 04/21/24 Start time: 20:06 Problem details: Now with severe features, due to persistent headache. Status: Acute Plan: 1. Magnesium sulfate infusion for 24 hours, followed by 24 hours of observation. 2. Close monitoring of vital signs, strict I/Os every 1 hr, magnesium toxicity checks as per protocol. 3. HELLP labs and magnesium checks every 6 hours until magnesium sulfate is discontinued. 4. Increase Labetalol to 200mg TID. (2) Superficial thrombophlebitis: Problem details: x2 Status: Acute Plan: 1. Continue Lovenox 40mg BID. 2. SCDs while in bed. (3) Anemia: Status: Acute Plan: 1. Continue oral iron supplements. (4) Lactating mother: Status: Acute OB Exam Physical Exam Vital signs: Temp Pulse Resp BP Pulse Ox O2 Del Method 98.1 F 58 L 18 137/83 99 Room Air 04/21/24 16:43 04/21/24 19:00 04/21/24 16:43 04/21/24 18:54 04/21/24 19:00 04/21/24 16:43 Narrative: VITAL SIGNS: As noted above. GENERAL APPEARANCE: Alert, cooperative female in no acute distress. MOOD & AFFECT: Normal. HEART: Regular rate and rhythm without significant murmurs. LUNGS: Lungs are clear to auscultation bilaterally. No crackles, wheezes, or rhonchi. ABDOMEN: Soft, non-distended and very slightly tender to palpation on the right lower abdominal quadrant, multiple bruises after Lovenox injections, incision is healing well, no surrounding erythema, abnormal induration or discharge. : Normal PP lochia. EXTREMITIES: Bilateral pitting edema +2. Multiple varicose veins, evidence of thrombophlebitis bilaterally on varicose veins on the medial aspect of knees. NEURO: Intact.
[2024-04-21] MEDS: LABETALOL HCL 100 MG TABLET 200 MG PO (19:59)
[2024-04-21] MEDS: MAGNESIUM IV 4 GM/100 ML PIGGYBACK IVPB (20:54)
[2024-04-21] MEDS: MAGNESIUM Infusion 40 GM/1,000 ML IV.SOLN IVPB (20:55)
[2024-04-21] MEDS: LACTATED RINGERS 1000 ML 1,000 ML 75 ML IV (20:55)
[2024-04-21] MEDS: ENOXAPARIN 40 MG/0.4 ML INJ SUBCUT (23:53)
[2024-04-22] VITALS (15 sets, daily range): BP systolic 125–156; BP diastolic 82–97; PULSE 52–86; RESP 12–16; TEMP 36.6–37; O2SAT 95–98
[2024-04-22 04:39] LABS: Hematocrit 30.5 % (33.0-51.0); Hemoglobin* 10.1 gm/dL (12.0-16.0); Mean Corpuscular HGB Conc 33 gm/dL (32-36); Mean Corpuscular Hemoglobin 29 pg (26-34); Mean Corpuscular Volume 89 fL (80-100); Platelet Count* 253 K/uL (140-440); Red Blood Count 3.43 m/uL (4.00-5.20); White Blood Count* 4.64 K/uL (4.50-11.00)
[2024-04-22 04:40] LABS: Slide Review Reflex No
[2024-04-22 04:53] LABS: Alanine Aminotransferase* 18 U/L (4-35); Aspartate Amino Transferase* 22 U/L (12-35); Creatinine* 0.6 mg/dL (0.5-1.5); Est. Creatinine Clearance* 123.68; Estimated Glomerular Filt Rate 121 ml/min
[2024-04-22 04:54] LABS: Blood Urea Nitrogen* 10 mg/dL (5-24)
[2024-04-22 05:06] LABS: Magnesium* 5.5 mg/dL (1.5-2.6)
[2024-04-22] MEDS: diphenhydrAMINE 50 MG/ML inj 12.5 MG IVP (05:57)
[2024-04-22] MEDS: METOCLOPRAMIDE HCL 5 MG/ML INJ 10 MG IVP (06:02)
[2024-04-22] MEDS: KETOROLAC 15 MG/ML inj IVP (06:02)
[2024-04-22] MEDS: LABETALOL HCL 100 MG TABLET 200 MG PO ×2 (08:02→14:13)
[2024-04-22] MEDS: ACETAMINOPHEN 500 MG TABLET 1000 MG PO ×3 (08:02→20:12)
--- NOTE | 2024-04-22 08:27 | PM.OBPNVD1 ---
OB - PN:Subj Subjective Time Seen by Provider: 07:45 Date Seen: 04/22/24 Narrative: Ms. Lovett is a , who was readmitted on 04/21 (POD9) following primary low transverse section and bilateral salpingectomy. Patient underwent IOL at 37 weeks due to CHTN with superimposed preeclampsia w/o severe features. Patient had a delivery due to arrest of descent. Surgery and post op uncomplicated. She was discharged home on POD #2. Patient had been utilizing labetalol 200mg BID with good BP control. She notes onset of persistent throbbing, whole head headache on 04/20 despite ibuprofen and tylenol scheduled. She presented to the ED, where she has noted to have rise in her BP, normal labs and a negative non-contrast head CT. She was admitted for superimposed preeclampsia with severe features, on magnesium sulfate therapy x24 hours with revision of her antihypertensive regimen (labetolol 200mg BID to 200mg TID). This morning, Amy is feeling okay. She notes toradol, tylenol and benadryl take her headache from a 3-4 to 2 in severity. She describes it as a whole head throbbing with no associated photophobia, phonophobia, nausea/vomiting. She is feeling better than prior to admission. Denies vision changes or RUQ pain. No acute concerns otherwise. Abdominal pain is well controlled on NSAIDs/tylenol, lochia is minimal. No incision concerns. She is breast feeding/pumping. Of note, Amy has developed bilateral SVT in the period despite lovenox 40mg daily. This was diagnosed by Dr. Reed, where she increased lovenox to 40mg BID. Plan to contact hematology to see if true therapeutic ACO is indicated and to discuss duration of therapy. OB - PN: Obj Exam Physical Exam: Vital signs: Temp Pulse Resp BP Pulse Ox O2 Del Method 98.6 F 69 16 134/87 97 Room Air 04/22/24 08:00 04/22/24 08:00 04/22/24 08:00 04/22/24 08:00 04/22/24 08:00 04/22/24 08:00 Narrative: General: Alert and oriented, in no acute distress Heart: Regular rate and rhythm, no rubs, murmurs or distress Lungs: Clear to posterior auscultation throughout. No wheezes, rales or crackles Abdomen: Soft, nontender and nondistended. Fundus palpates 2 below umbilicus. Incision is clean/dry and well approximated. Extremities: Difficult to assess patellar reflexes bilaterally secondary to SVT and varicose veins. SCDs in place. Brachioradialis reflexes with us for poor, 2+ bilaterally. OB - PN: Obj Data Labs Labs: Laboratory Results - last 24 hr 04/21/24 04/21/24 04/22/24 17:17 17:32 04:35 WBC 6.01 4.64 RBC 3.50 L 3.43 L Hgb 10.0 L 10.1 L Hct 30.8 L 30.5 L MCV 88 89 MCH 29 29 MCHC 33 33 RDW Coeff of Kulwant 15.5 Plt Count 302 253 Neut % (Auto) 70.2 Lymph % (Auto) 20.6 [place] % (Auto) 6.7 Eos % (Auto) 1.3 Baso % (Auto) 0.2 Neut # (Auto) 4.22 Lymph # (Auto) 1.24 [place] # (Auto) 0.40 Eos # (Auto) 0.08 Baso # (Auto) 0.01 Abs Immat Gran (auto) 0.06 Imm/Tot Granulo (auto) 1.0 Sodium 140 Potassium 4.1 Chloride 109 Carbon Dioxide 25 Anion Gap 6 L BUN 12 10 Creatinine 0.7 0.6 Estimated Creat Clear 106.01 123.68 Estimated GFR 116 121 Glucose 82 Calcium 9.2 Magnesium 2.4 5.5 H* Total Bilirubin 1.2 AST 25 22 ALT 19 18 Alkaline Phosphatase 86 Troponin I < 0.01 L Total Protein 6.5 Albumin 4.0 Urine Color Yellow Urine Appearance Clear Urine pH 6.5 Ur Specific [place] 1.015 Urine Protein Negative Urine Glucose (UA) Negative Urine Ketones Negative Urine Blood 3+ A Urine Nitrite Negative Urine Bilirubin Negative Urine Urobilinogen 0.2 Ur Leukocyte Esterase Trace A Urine RBC 10-25 A Urine WBC 2-5 Ur Squamous Epith Cells None Urine Bacteria None OB - PN: A/P Delivery Assessment and Plan (1) Pre-eclampsia superimposed on chronic hypertension, delivered: Problem details: Now with severe features, due to persistent headache. Status: Acute (2) Superficial thrombophlebitis: Problem details: x2 Status: Acute (3) Anemia: Status: Acute (4) Lactating mother: Status: Acute Plan Amy is a 33-year-old readmitted on postop day 9 for superimposed preeclampsia with severe features in the period. Status post primary for arrest of descent after induction of labor for superimposed preeclampsia without severe features. She presented to Care yesterday in the setting of new persistent headache, with blood pressure elevation at home. She was admitted for antihypertensive regimen optimization of magnesium sulfate given unrelenting headache, thus meeting criteria for preeclampsia with severe features. Since admission, her blood pressures have been entirely in the normal to mild range. Plan to continue labetolol 200mg TID. She notes her headache is improved with NSAIDs, Tylenol and Benadryl. Head CT was negative on admission, no further diagnostic evaluation required at this time. Benign physical exam. Continue magnesium therapy for 24 hours, until 1999 this evening. Recommend continued hospitalization for approximately 24 hours post-mag. She desires discharge to home tomorrow afternoon if safe, where I think this is possible but will be determined by tomorrow and pending her BP course. I did call Amy's hematology provider to discuss her new bilateral SVTs while on lovenox 40mg daily to request her advise on dose/duration of therapy. She actually recommends revision for lovenox to therapeutic dosing of approximately 1mg/kg BID or 1.5mg/kg daily. Plan 100mg BID to improve ease of dosing and given anticipated weight loss in the period. Plan 45 days duration of therapy. Rx sent for 44 additional days as we will start this therapy today. Dispo: inpatient overnight
[2024-04-22] MEDS: ENOXAPARIN 40 MG/0.4 ML INJ SUBCUT (09:54)
[2024-04-22] MEDS: IBUPROFEN 600 MG TABLET PO ×3 (09:54→23:16)
[2024-04-22 10:21] LABS: Hematocrit 29.9 % (33.0-51.0); Hemoglobin* 9.7 gm/dL (12.0-16.0); Mean Corpuscular HGB Conc 32 gm/dL (32-36); Mean Corpuscular Hemoglobin 28 pg (26-34); Mean Corpuscular Volume 88 fL (80-100); Platelet Count* 248 K/uL (140-440); Red Blood Count 3.41 m/uL (4.00-5.20); White Blood Count* 4.75 K/uL (4.50-11.00)
[2024-04-22 10:26] LABS: Slide Review Reflex No
[2024-04-22 10:57] LABS: Alanine Aminotransferase* 19 U/L (4-35); Aspartate Amino Transferase* 26 U/L (12-35); Blood Urea Nitrogen* 9 mg/dL (5-24); Creatinine* 0.6 mg/dL (0.5-1.5); Est. Creatinine Clearance* 123.68; Estimated Glomerular Filt Rate 121 ml/min
[2024-04-22 11:04] LABS: Magnesium* 6.2 mg/dL (1.5-2.6)
[2024-04-22] MEDS: LACTATED RINGERS 1000 ML 1,000 ML 75 ML IV (11:05)
[2024-04-22] MEDS: ENOXAPARIN 60 MG/0.6 ML INJ SUBCUT (11:17)
[2024-04-22] MEDS: MAGNESIUM Infusion 40 GM/1,000 ML IV.SOLN IVPB (15:20)
[2024-04-22 16:19] LABS: Hemoglobin* 10.1 gm/dL (12.0-16.0); Mean Corpuscular HGB Conc 33 gm/dL (32-36); Mean Corpuscular Hemoglobin 29 pg (26-34); Mean Corpuscular Volume 89 fL (80-100); Platelet Count* 291 K/uL (140-440); White Blood Count* 5.65 K/uL (4.50-11.00)
[2024-04-22 16:20] LABS: Slide Review Reflex No
[2024-04-22 16:34] LABS: Creatinine* 0.7 mg/dL (0.5-1.5); Est. Creatinine Clearance* 106.01; Estimated Glomerular Filt Rate 116 ml/min
[2024-04-22 16:35] LABS: Alanine Aminotransferase* 19 U/L (4-35); Aspartate Amino Transferase* 30 U/L (12-35); Blood Urea Nitrogen* 11 mg/dL (5-24)
[2024-04-22 16:37] LABS: Magnesium* 6.3 mg/dL (1.5-2.6)
[2024-04-22] MEDS: LABETALOL HCL 100 MG TABLET 300 MG PO (20:11)
[2024-04-22 22:45] LABS: Hematocrit 29.1 % (33.0-51.0); Hemoglobin* 9.5 gm/dL (12.0-16.0); Mean Corpuscular HGB Conc 33 gm/dL (32-36); Mean Corpuscular Hemoglobin 29 pg (26-34); Mean Corpuscular Volume 89 fL (80-100); Platelet Count* 269 K/uL (140-440); Red Blood Count 3.28 m/uL (4.00-5.20); White Blood Count* 5.04 K/uL (4.50-11.00)
[2024-04-22 22:47] LABS: Slide Review Reflex No
[2024-04-22 22:59] LABS: Alanine Aminotransferase* 18 U/L (4-35); Aspartate Amino Transferase* 23 U/L (12-35); Blood Urea Nitrogen* 12 mg/dL (5-24); Creatinine* 0.8 mg/dL (0.5-1.5); Est. Creatinine Clearance* 92.76; Estimated Glomerular Filt Rate 99 ml/min
[2024-04-22 23:13] LABS: Magnesium* 5.4 mg/dL (1.5-2.6)
[2024-04-22] MEDS: ENOXAPARIN 100 MG/ML INJ SUBCUT (23:17)
[2024-04-23] VITALS (11 sets, daily range): BP systolic 127–159; BP diastolic 80–98; PULSE 56–74; RESP 16; TEMP 36.9–37; O2SAT 94–96
[2024-04-23] MEDS: ACETAMINOPHEN 500 MG TABLET 1000 MG PO ×2 (04:23→16:07)
[2024-04-23] MEDS: NIFEdipine 30 MG TAB.ER.24 PO ×3 (04:23→21:05)
--- NOTE | 2024-04-23 08:00 | PM.OBPNVD1 ---
OB - PN:Subj Subjective Time Seen by Provider: 09:13 Date Seen: 04/23/24 Interval history: Ms. Lovett is a , who was readmitted on 04/21 (POD9: delivery on 04/12/2024) following primary low transverse section and bilateral salpingectomy. Patient underwent IOL at 37 weeks due to CHTN with superimposed preeclampsia w/o severe features. Patient had a delivery due to arrest of descent. Surgery and post op uncomplicated. She was discharged home on POD #2. Patient had been utilizing labetalol 200mg BID with good BP control. She notes onset of persistent throbbing, whole head headache on 04/20 despite ibuprofen and tylenol scheduled. She presented to the ED, where she has noted to have rise in her BP, normal labs and a negative non-contrast head CT. She was admitted for superimposed preeclampsia with severe features, on magnesium sulfate therapy x24 hours with revision of her antihypertensive regimen: From labetalol 200mg BID to Labetalol 300mg TID plus Nifedipine ER 30mg daily. Magnesium was completed at 9PM on 04/22/2024. She has been pumping/. This morning the patient denies having a headache and states it went completely away by 3am. She has had multiple BP's of 150's/90's in the last 12 hours including at 8am today. I reviewed with her that she will likely have to stay for another 24 hours to get her blood pressure under control. I also increased her nifedipine ER to 60mg daily in addition to her labetalol 300mg TID. I will be monitoring her bp throughout the day and possible discharge this evening if bp is under good control. OB - PN: Obj Exam Physical Exam: Vital signs: Temp Pulse Resp BP Pulse Ox O2 Del Method 97.9 F 56 L 16 135/84 96 Room Air 04/22/24 23:25 04/23/24 06:07 04/23/24 06:07 04/23/24 06:07 04/23/24 06:07 04/23/24 06:07 Narrative: General: Pleasant, , well groomed woman in no acute distress. Vital signs: Included in her electronic medical record Heart: Regular rate and rhythm without gallop, rub or murmur. Chest: Clear to auscultation bilaterally. Abdomen: Soft, nontender, nondistended with normal bowel sounds throughout. Extremities: Trace to +1 bilateral lower extremity edema to the ankle. OB - PN: Obj Data Labs Labs: Laboratory Results - last 24 hr 04/22/24 04/22/24 04/22/24 10:15 16:11 22:31 WBC 4.75 5.65 5.04 RBC 3.41 L 3.50 L 3.28 L Hgb 9.7 L 10.1 L 9.5 L Hct 29.9 L 31.0 L 29.1 L MCV 88 89 89 MCH 28 29 29 MCHC 32 33 33 Plt Count 248 291 269 BUN 9 11 12 Creatinine 0.6 0.7 0.8 Estimated Creat Clear 123.68 106.01 92.76 Estimated GFR 121 116 99 Magnesium 6.2 H* 6.3 H* 5.4 H* AST 26 30 23 ALT 19 19 18 OB - PN: A/P Delivery Assessment and Plan (1) Pre-eclampsia superimposed on chronic hypertension, delivered: Problem details: Now with severe features, due to persistent headache. Status: Acute Assessment and Plan: 1. Increase nifedipine ER to 60mg daily from 30mg daily. 2. Continue labetalol 300mg PO TID. (2) Superficial thrombophlebitis: Problem details: x2 Status: Acute Assessment and Plan: 1. Hematology recommended treatment dose of lovenox until 6 weeks . (3) Anemia: Status: Acute (4) Lactating mother: Status: Acute
[2024-04-23] MEDS: LABETALOL HCL 100 MG TABLET 300 MG PO (09:08)
[2024-04-23] MEDS: LABETALOL HCL 100 MG TABLET 200 MG PO (10:39)
[2024-04-23] MEDS: FUROSEMIDE 40 MG TABLET 10 MG PO (10:41)
[2024-04-23] MEDS: ENOXAPARIN 100 MG/ML INJ SUBCUT ×2 (11:00→22:59)
[2024-04-23] MEDS: LABETALOL HCL 100 MG TABLET 500 MG PO (14:10)
[2024-04-23] MEDS: LABETALOL HCL 100 MG TABLET 600 MG PO (21:04)
[2024-04-24 03:00] VITALS: BP 144/88; PULSE 63; RESP 22; O2SAT 95
[2024-04-24 06:53] VITALS: BP 148/87; PULSE 63; RESP 20; O2SAT 95
[2024-04-24] MEDS: FUROSEMIDE 20 MG TABLET 10 MG PO (08:18)
[2024-04-24] MEDS: NIFEdipine 30 MG TAB.ER.24 60 MG PO (08:58)
[2024-04-24] MEDS: IBUPROFEN 600 MG TABLET PO (08:58)
[2024-04-24] MEDS: LABETALOL HCL 100 MG TABLET 600 MG PO (08:59)
--- NOTE | 2024-04-24 10:29 | P.DS_ITS ---
DS: Providers Provider Time Seen by Provider: : Date Seen: 04/24/24 Date of admission: 04/22/24 07:42 Primary care physician: Not a Local Provider Admitting Clinician: Katelyn Goins MD Attending Physician on discharge: Katelyn Goins MD Date of Discharge: 04/24/24 DS: Diagnosis Discharge Diagnosis (1) Pre-eclampsia superimposed on chronic hypertension, delivered: Status: Acute Problem details: Now with severe features, due to persistent headache. (2) care following delivery: Status: Acute (3) Superficial thrombophlebitis: Status: Acute Problem details: x2 (4) Anemia: Status: Acute (5) Obesity: Status: Acute Problem details: Class III Exam Narrative: Exam Narrative: Physical exam: General: No acute distress Psych: Alert and oriented x4, full affect HEENT: Normocephalic, atraumatic Lungs: Unlabored breathing. Abdomen: Ssoft, no tenderness, rebound, or guarding Incision: Appropriately tender to palpation. Clean, dry, and intact. No erythema, induration, or abnormal discharge/breakdown Lower extremities: Bilaterally secondary to SVT and varicose veins - most prominent around her knee area. She is francisco compression socks. +2 bilateral lower extremity edema. Pelvic exam: Scant blood on pad Const: Vital Signs, click to edit/add: Vital Signs - 24 hr 04/23/24 12:11 04/23/24 14:11 04/23/24 16:00 Temperature 98.6 F Pulse Rate [Pulse Oximeter] 66 61 74 Respiratory Rate 16 16 Blood Pressure [Le ft Arm] 127/80 144/89 H 148/82 H Pulse Oximetry 96 Oxygen Delivery Me thod Room Air 04/23/24 21:01 04/23/24 23:02 04/23/24 23:12 Temperature 98.4 F Pulse Rate [Pulse Oximeter] 59 L 57 L Respiratory Rate 16 16 Blood Pressure [Le ft Arm] 147/85 H 150/86 H 144/82 H Pulse Oximetry 94 96 Oxygen Delivery Me thod Room Air 04/24/24 03:00 04/24/24 06:53 Temperature Pulse Rate [Pulse Oximeter] 63 63 Respiratory Rate 22 20 Blood Pressure [Le ft Arm] 144/88 H 148/87 H Pulse Oximetry 95 95 Oxygen Delivery Me thod Room Air Room Air OB - DS: Summary Hospital Course Hospital Course: Ms. Lovett is a , who was readmitted on 04/21 (POD9: delivery on 04/12/2024) following primary low transverse section and bilateral salpingectomy. Patient underwent IOL at 37 weeks due to CHTN with superimposed preeclampsia w/o severe features. Patient had a delivery due to arrest of descent. Surgery and post op uncomplicated. She was discharged home on POD #2. Patient had been utilizing labetalol 200mg BID with good BP control. She notes onset of persistent throbbing, whole head headache on 04/20 despite ibuprofen and tylenol scheduled. She presented to the ED, where she has noted to have rise in her BP, normal labs and a negative non-contrast head CT. She was admitted for superimposed preeclampsia with severe features, s/p magnesium sulfate therapy x24 hours with revision of her antihypertensive regimen: Labetalol 200mg BID to Labetalol 600mg TID plus Nifedipine ER 60mg BID. Additionally, She was started on Lasix 10 mg QD. Will hold Lasix as her BP is trending towards normal. Her BP has stabilized in the 140s/80s over night. Overnight patient feels well. She has no more headache and feels her bilateral SVT has improved. Her pain is well controlled on oral pain medications. She is tolerating a regular diet. She is ambulating without difficulty. Lochia is scant. She is urinating without linn. Patient denies chest pain, SOB, n/v, headache, RUQ pain, vision changes, dizziness. She is desperate to go home as she feels well and misses her children. She has a close follow up with me on Saturday. We reviewed precautions extensively. She is to keep a BP log two times per day prior to taking her AM and PM doses. If her BP are persistently in the 150s/90s or above, she is to call for med adjustment. If her BP is 160/110 or greater or she has symptoms of severe pre-eclampsia, she is to go to the emergency room for evaluation. She is on a lot of medications so she is to hold her meds if BP is 100 systolic or less and call for guidance. 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 Currently, plan is Lovenox 100mg BID x 45 days duration of therapy. Time Spent with Patient Time attestation: Total time spent providing and/or coordinating discharge services: Time spent: Greater than 30 minutes Discharge Plan Discharge Disposition: Home, Self-Care Date of Admission: 04/22/24 07:42 Attending Provider on Discharge: Karissa Crump Primary Care Provider: Provider,Not a Local Condition: Stable Anticipated Discharge Date/Time: 04/24/24 11:03 Discharge Medications: New enoxaparin [Lovenox] 100 mg/mL Syringe 100 mg subcut Q12H 44 Days Qty: 88 0RF nifedipine 30 mg Tablet Extended Release 24hr 60 mg PO Q12H 30 Days Qty: 120 0RF labetalol 100 mg Tablet 600 mg PO TID 30 Days Qty: 540 0RF Continued DHA 200 mg capsule 200 mg PO DAILY labetalol 100 mg tablet 200 mg PO BID Qty: 120 1RF docusate sodium 100 mg Capsule 100 mg PO DAILY Qty: 60 1RF Discontinued enoxaparin [Lovenox] 40 mg/0.4 mL syringe 40 mg subcut BID Qty: 20 0RF Hold Instructions: for Discharge Orders: Discharge Order (Routine); Ordered 04/24/24 Ordered By: Karissa Crump Patient Education: OB High Blood Pressure DC Activity Level: Activity as Tolerated Discharge Diet: Regular Follow Up Appointments: Provider,Not a Local [Primary Care Provider] - Forms: [employer] Info Instructions
[2024-04-24 10:57] VITALS: BP 114/75; PULSE 63; RESP 17
[2024-04-24] MEDS: ENOXAPARIN 100 MG/ML INJ SUBCUT (11:11)
== END 2024-04-24 12:15 | disposition home or self-care (01) | DRG 561 ==
LOC: ED 19:40 → OB 20:14
PROVIDERS: Admitting Provider Obstetrics & Gynecology; Emergency Provider Emergency Medicine; Visit Provider Obstetrics & Gynecology
DX: O14.15 Severe pre-eclampsia, complicating the puerperium (principal); O10.93 Unspecified pre-existing hypertension complicating the puerperium; R51.9 Headache, unspecified; O87.0 Superficial thrombophlebitis in the puerperium; I80.03 Phlebitis and thrombophlebitis of superficial vessels of lower extremities, bilateral; O87.4 Varicose veins of lower extremity in the puerperium; I83.893 Varicose veins of bilateral lower extremities with other complications; O90.81 Anemia of the puerperium; F41.9 Anxiety disorder, unspecified; Z79.01 Long term (current) use of anticoagulants; Z86.718 Personal history of other venous thrombosis and embolism; O99.215 Obesity complicating the puerperium; E66.9 Obesity, unspecified
CPT/HCPCS: 36415; 70450; 80053; 81001; 82565; 83735; 84450; 84460; 84484; 84520; 85025; 85027; 87086; 93005; 99283; 99284; 99285; A9270; G0378; J1200; J1650; J1885; J2765; J3475; J7030; J7120

== ENCOUNTER 2024-05-26 15:13 | Outpatient (CLI) | payer BC, SELFPAY ==
--- OUTSIDE RECORDS SUMMARY | 2024-05-26 15:15 | XMS_ITS | Clinical Summary ---
Author Organization [facility] Address [place], [place] [address] Care Team Providers Care Recording Studio Setup Worker Name Role Phone Katelyn Goins MD Primary [...] Department Care Team Description 04/13/2024 Lab Requisition [facility] [phone] Haley Mao MD 04/13/2024 Lab Requisition [facility] [phone] Haley Mao MD from Last 3 Months [...] Comments Blood Pressure 145/90 07/15/2020 2:30 PM EXPLOSIVE EXPERT Pulse 77 07/15/2020 2:30 PM EXPLOSIVE EXPERT Temperature 36.4 ??C (97.6 ??F) 07/15/2020 2:30 PM CS T Respiratory Rate 16 07/15/2020 2:30 PM EXPLOSIVE EXPERT Oxygen Saturation 100% 07/15/2020 2:30 PM EXPLOSIVE EXPERT Inhaled Oxygen Concentration - - Weight 99.8 kg (220 lb) 07/15/2020 2:30 PM EXPLOSIVE EXPERT Height 170.2 cm (5' 7) 07/15/2020 2:30 PM EXPLOSIVE EXPERT Body Mass Index 34.46 07/15/2020 2:30 PM EXPLOSIVE EXPERT Plan of Treatment Health Maintenance Due Date [...] EVENT Routine 04/12/2024 12 :00 PM CDT COVER CUTTER MACHINE THIN PREP PAP SCREEN IMAGED Routine 08/28/2019 11:08 AM EXPLOSIVE EXPERT from Last 3 Months or Most Recently Relevant to Health Maintenance Results * LAB TRACKING EVENT (04/13/2024 12:00 PM CDT) Only the most recent of2 resultswithin the time period is included. Other (Other) Client Collect / Unknown 04/13/2024 12:00 PM CDT 04/13/2024 1:41 PM CDT Haley Mao MD LAB BILL ONLY [facility] [address] [place] [address], * PATH TISSUE EXAM (04/12/2024 8:00 PM CDT) Case Report Pathology Report ?Case: [id number] ? Authorizing Provider: ??Haley Mao MD ?? Collected: ? 04/12/2024 2006 ? Ordering Location: ? [facility] ?Received: ?04/13/2024 1501 ? Pathologist: ? Roro Pickard MD ? Specimens: ?? A) - Bilateral Fallopian Tubes ? B) - Placenta ? 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 maternal HIV or HCV): No Cytogenetic studies: Not requested Clinical information: Date of delivery: Time of delivery: 1957 Type of delivery: Live born:Yes Gestational age: 35/5 weeks weight of (s): 2750 grams Sex of (s): ??Female Pertinent Maternal History: Maternal parity: G 5 P 3 Diabetes: No Hypertension: No Eclampsia: No Smoking: No Patient desires infertility. 04/15/2024 1:41 PM CDT [facility] Gross Description A) Received in formalin, labeled with the patient's name and bilateral fallopian tubes, are two segments of fallopian tube averaging 9.5 cm long, and 1.3 cm diameter. Fimbriated ends are present. ??There are 2 possible smooth lined cysts averaging 0.1 cm identified in one of the fallopian tubes. ??No other lesions are identified. ??Journal Box Inspector sections including the entire fimbriated ends are [...] with no discrete fibrous lesions appreciated grossly. Journal Box Inspector sections are submitted: 1. ?? membranes and insertion 2. ??Umbilical cord 3-5. ??Full-thickness central placenta Time and date in formalin: 1955 on 04/13/2024 JPW 04/13/2024 04/15/2024 1:41 PM CDT [facility] [employer] [facility] Microscopic Description The final diagnosis is based on microscopic examination of appropriate sections of all specimens. 04/15/2024 1:41 PM CDT [facility] [employer] [facility] Additional Information Interpreted at [facility] [employer] [facility], Central Laboratory - [address], [place] [address] 04/15/2024 1:41 PM CDT [facility] [employer] [facility] Other SPECIMEN FROM PLACENTA / Unknown 04/12/2024 8:06 PM CDT 04/13/2024 3:01 PM CDT Specimen (specimen) SPECIMEN FROM PL[facility]A / Unknown 04/12/2024 8:00 PM CDT 04/13/2024 3:23 PM CDT Haley Mao MD PATHOLOGY/CYTOLOG Y [facility] [address] [place] [address], * COVER CUTTER MACHINE THIN PREP PAP SCREEN IMAGED (08/28/2019 11:08 AM EXPLOSIVE EXPERT) Case Report Gynecologic Cytology Report ? Case: [id number] ? Authorizing Provider: ??Katelyn Goins ??Collected: ? 08/28/2019 1108 ? M, MD ? Ordering Location: ? [facility] ?Received: ?08/28/2019 1623 ? First Screen: ?Rosemary Ferguson ? Specimen: ?COVER CUTTER MACHINE ThinPrep Vial Screening, Cervical/Vaginal ? 09/08/2019 10:14 AM EXPLOSIVE EXPERT [facility] INTERPRETATION/ RESULT NEGATIVE FOR INTRAEPITHELIAL LESION OR MALIGNANCY (NIL) (none) 09/08/2019 10:14 AM [facility] IMEN ADEQUACY Satisfactory for evaluation Endocervical component present 09/08/2019 10:14 AM [facility] HPV REQUEST HPV and PAP 09/08/2019 10:14 AM [facility] Last Pap Date 09/27/2014 09/08/2019 10:14 AM [facility] Last Pap Result NIL 0 10:14 AM [facility] Menstrual Status 09/08/2019 10:14 AM [facility] Additional Information 09/08/2019 10:14 AM [facility] Comment: Interpreted at [facility] - [address], [place] [address] Automated Review Successful 09/08/2019 10:14 AM [facility] Comment:Specimen processed s uccessfully by automated engineering program analyst device, ThinPrep Imaging System, [employer] ANCILLARY TESTING COVER CUTTER MACHINE HPV Ordered, Please see separate report 09/08/2019 10:14 AM [facility] Note The pap test [...] pre-malignant and malignant lesions. 09/08/2019 10:14 AM [facility] Other (Cervical/Vagina l) 08/28/2019 11:08 AM EXPLOSIVE EXPERT 08/28/2019 4:23 PM EXPLOSIVE EXPERT Katelyn Goins MD PATHOLOGY/ CYTOLOGY [facility] [address] [place] [address], [place] from Last 3 Months or Most Recently Relevant to Health Maintenance Care Teams Recording Studio Setup Worker Relationship Specialty Start Date End Date Katelyn Goins MD [address] [place] [address] PCP - General Obstetrics and Gynecology 07/15/20
[2024-05-30 06:25] LABS: HPV Source Cervix; HPV, High Risk by TMA Not Detected
== END 2024-05-26 15:14 | disposition home or self-care (01) ==
PROVIDERS: Visit Provider Obstetrics & Gynecology
DX: Z12.4 Encounter for screening for malignant neoplasm of cervix (principal); Z39.2 Encounter for routine postpartum follow-up
CPT/HCPCS: 87624; 87625; 88141; 88142

== ENCOUNTER 2024-06-01 13:00 | Outpatient (RCR) | payer BC, SELFPAY ==
--- NOTE | 2024-07-29 09:42 | ONC.NURNOTE ---
Left message with pt that patient no longer needs the aspirin 81mg PO daily, she completed [address] Dumont. Script refill request faxed back to [phone] with this information as well.
== END 2024-09-27 23:59 | disposition home or self-care (01) ==
LOC: CCIC 13:00
PROVIDERS: Visit Provider Internal Medicine Hematology & Oncology
DX: I80.03 Phlebitis and thrombophlebitis of superficial vessels of lower extremities, bilateral (principal); Z79.01 Long term (current) use of anticoagulants; Z79.82 Long term (current) use of aspirin
CPT/HCPCS: 99202; 99204; 99205; 99214; G0463